=== PATIENT | male | born 1945 | race Caucasian/White ===

== ENCOUNTER 2016-10-09 11:14 | Day surgery (SDC) | payer OTHER ==
[~2016-10-09 11:14] MED LIST: Buffered Lidocaine 1% SYR 3ML* 3 ML/SYR SYRINGE INTRADERM ONE; Dexamethasone IV* 4 MG/ML 1 ML (4 MG) IV SLOW PU ONE; Famotidine IV* 10 MG/ML 2 ML (20 mg) IV ONE; Midazolam* 1 MG/ML 2 ML VIAL (2 MG) ONE; fentaNYL* 50 MCG/ML 2 ML VIAL (100 MCG VIAL) ONE
[2016-10-09] MEDS ORDERED: ceFAZolin 1 GM in Dextrose (*) 1 GM/50 ML BAG IVPB ONE (11:36)
[2016-10-09] MEDS ORDERED: Famotidine IV* 10 MG/ML 2 ML (20 mg) ONE (11:36)
[2016-10-09] MEDS ORDERED: ceFAZolin 2 GM PREMIX(*) 2 GM/50 ML BAG IVPB ONE (11:36)
[2016-10-09] MEDS ORDERED: Heparin VIAL(*) 5000 UNITS/ML VIAL (FIVE THOUSAND) ONE (11:36)
[2016-10-09] MEDS ORDERED: Dexamethasone IV* 4 MG/ML 1 ML (4 MG) ONE (11:36)
[2016-10-09] MEDS ORDERED: Buffered Lidocaine 1% SYRIN* 5 ML/SYR SYRINGE ONE (11:38)
[2016-10-09] MEDS ORDERED: Lidocaine 1% INJ* 10 MG/ML 30 ML SDV ONE (11:42)
[2016-10-09] MEDS ORDERED: Bupivacaine 0.5% SDV PF* 30 ML VIAL ONE (11:42)
[2016-10-09] MEDS ORDERED: Ondansetron INJ* 2 MG/ML VIAL ONE (12:08)
[2016-10-09] MEDS ORDERED: Propofol* 10 MG/ML 20 ML BTL IV PUSH ONE (12:08)
[2016-10-09] MEDS ORDERED: Ketorolac INJ* 30 MG/ML 1 ML VIAL ONE (12:08)
[2016-10-09] MEDS ORDERED: Bupivacaine 0.5% W/EPI SDV* 30 ML VIAL ONE (12:11)
[2016-10-09] MEDS ORDERED: DiMENhydriNATE IV* 50 MG/ML VIAL IV PUSH PRN (12:49)
--- NOTE | 2016-10-09 13:31 | PN ---
Progress Note - Progress Note Note: Brief Operative Note: Pre and Postop Dx: umbilical hernia Procedure: open repair umb hernia w/ mesh Anesthesia: Gen (LMA) Surgeon: Ingris Asst: JILLIAN Floyd EBL: < 50 ml Fluids: 400 ml RL Drains: none Findings: dictated
[2016-10-09] MEDS ORDERED: HYDROcodone/ACETAMIN 5-325 MG* 1 TAB PO PRN (13:32)
[2016-10-09] MEDS ORDERED: HYDROcodone/ACETAMIN 5-325 MG* 1 TAB ONE (14:02)
[2016-10-09] MEDS ORDERED: fentaNYL* 50 MCG/ML 2 ML VIAL (100 MCG VIAL) ONE (14:02)
[2016-10-09] MEDS: fentaNYL* 50 MCG/ML 2 ML VIAL (100 MCG VIAL) IV PRN ×2 (14:05→14:14)
[2016-10-09 14:14] VITALS: BP 156/82
[2016-10-09] MEDS ORDERED: Albuterol 2.5 MG/3 ML NEB.SOL* (0.083%) ONE (15:02)
--- NOTE | 2016-10-10 07:03 | OP ---
DATE OF OPERATION: 10/09/16 - [facility] DATE OF : 41 SURGEON: Praveen Amado MD MOVIE SHOT CAMERA OPERATOR: JILLIAN Lewis ANESTHESIOLOGIST: Dr. hPillips. ANESTHESIA: General anesthetic, local infiltration. PRE-OP DIAGNOSIS: Umbilical hernia. POST-OP DIAGNOSIS: Umbilical hernia. OPERATIVE PROCEDURE: Open repair of umbilical hernia with mesh. DESCRIPTION OF PROCEDURE: The patient was supine on the operating table. After adequate general anesthetic, compression stockings, Jaswinder Hugger warmer, and intravenous antibiotics; the abdomen was prepped with antiseptic and draped in a sterile fashion. Local infiltrative anesthesia was administered. A curvilinear incision was created at the inferior umbilical fold. There was some ulcerated skin down there. This was just excised and discarded and the hernia had just omentum and preperitoneal fat. It was dissected free and reduced and the preperitoneal plane was developed and a 6 cm underlay patch was utilized. The fascial defect was maybe 2.5 cm. This was sewn up underneath with eight sutures circumferentially with 0 Polysorb. The fascia was then closed over the top with 0 Polysorb, and umbilical skin tacked back down with 3- 0 Polysorb, which was also used for the adipose, and the skin closed with 5-0 Polysorb followed by Steri-Strips. He was brought to Recovery in good condition. No complications. No drains. No pathologic specimens. Sponge and instrument counts correct. Estimated blood loss less than 20 mL. CC: Dennys Granado MD * [id number] #: [id number] MTDD
== END 2016-10-09 15:45 | disposition home or self-care (01) ==
LOC: OR 11:14
PROVIDERS: ATTEND Surgery
DX: K42.9 Umbilical hernia without obstruction or gangrene (principal); Z68.35 Body mass index [BMI] 35.0-35.9, adult; I10 Essential (primary) hypertension; C61 Malignant neoplasm of prostate; C79.51 Secondary malignant neoplasm of bone
CPT/HCPCS: C1781; J0690; J1100; J1644; J1885; J2001; J2250; J2405; J2704; J3010

== ENCOUNTER 2019-01-13 08:25 | Inpatient (IN) | payer OTHER ==
--- NOTE | 2019-01-13 08:57 | ED ---
Skin Complaint - HPI Summary HPI Summary: The patient is a 73 y/o M presenting to [facility] with a chief complaint of gradual worsening of a sore throat and rash on the extremities starting three days ago. He reports that his symptoms started with a sore throat, and then he developed a pruritic and erythematous rash on the upper and lower extremities that has worsened in the last day particularly at the palms and knees. He additionally c/ o increased edema and blistering in the bilateral feet and decreased appetite over the last few days as well. He notes that he usually has edema in the feet due to a lack of mobility, but the swelling has worsened recently. He is not currently in pain. 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 He is unsure of the exposure. PMHx: HLD, HTN, GERD, jaundice, prostate cancer, hepatitis. Nonsmoker, no EtOH, no substance use. - History of Current Complaint Chief Complaint: EDAllergicReaction Time Seen by Provider: 01/13/19 08:34 Stated Complaint: GENERAL ILLNESS PER EMS Hx Obtained From: Patient Onset/Duration: Started Days Ago - three, Still Present, Worse Since - last day Skin Exposure Onset/Duration: Days Ago Timing: Lasting Days Onset Severity: Mild Current Severity: Moderate Pain Intensity: 0 Pain Scale Used: 0-10 Numeric Skin Location: Arm - bilateral worst at palms extending upwards, Leg - bilateral knees Character: Redness Aggravating Symptom(s): Other: - itching Alleviating Symptom(s): Treatment [employer]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: - none Associated Signs & Symptoms: Rash - diffuse - Allergy/Home Medications Allergies/Adverse Reactions: Allergies Allergy/AdvReac Type Severity Reaction Status Date / Time GRAPE JUICE Allergy Severe Swelling Uncoded 01/13/19 08:39 Home Medications: Home Medications Cholecalciferol TAB* [Vitamin D TAB*] 2,000 units PO DAILY 01/13/19 [History Confirmed 01/13/19] Furosemide 1 - 2 tab PO DAILY 01/13/19 [History Confirmed 01/13/19] Lansoprazole [Prevacid] 30 mg PO BEDTIME 01/13/19 [History Confirmed 01/13/19] Metoprolol Succinate 100 mg PO DAILY 01/13/19 [History Confirmed 01/13/19] PMH/Surg Hx/FS Hx/Imm Hx Endocrine/Hematology History: Denies: Hx Diabetes, Hx Systemic Lupus Erythematosus Cardiovascular History: Reports: Hx Hypercholesterolemia, Hx Hypertension Denies: Hx Congestive Heart Failure, Hx Pacemaker/ICD Respiratory History: Reports: Hx Pneumonia, Other Respiratory Problems/ Disorders - pneumonia, collapsed lung as a child GI History: Reports: Hx Gastroesophageal Reflux Disease - on prevacid, Hx Hiatal Hernia, Hx Jaundice - from hepatitis at approx 16 years old, Other GI Disorders - CHRONIC CONSTIPATION History: Reports: Other Problems/Disorders - 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 Denies: Hx Dialysis, Hx Renal Disease Musculoskeletal History: Reports: Hx Arthritis, Other Musculoskeletal History - CANCER LEFT HIP; METS FROM PROSTATE Denies: Hx Rheumatoid Arthritis Sensory History: Reports: Hx Contacts or Glasses - GLASSES Denies: Hx Hearing Aid Opthamlomology History: Reports: Hx Contacts or Glasses - GLASSES Psychiatric History: Denies: Hx Panic Disorder - Cancer History Cancer Type, Location and Year: malignant neoplasm of the prostste Hx Chemotherapy: Yes - Surgical History Surgery Procedure, Year, and Place: CHOLECYSTECTOMY 2009 [facility]. CATARACT RIGHT EYE 2011 [facility]. cataract left eye 2015 [facility] Hx Anesthesia Reactions: No Infectious Disease History: No Infectious Disease History: Reports: Hx Hepatitis - infectious in high school - none now Denies: Traveled Outside the [place] in Last 30 Days - Family History Known Family History: Negative: Cardiac Disease, Hypertension, Diabetes - Social History Alcohol Use: None Hx Substance Use: No Substance Use Type: Reports: None Hx Tobacco Use: No Smoking Status (MU): Never Smoked Tobacco Review of Systems Positive: Sore Throat Positive: Other - decreased appetite Positive: Edema - in the bilateral feet Positive: Rash - diffuse covering upper extremities at palms up the arms and on the bilateral knees, Other - blistering on the bilteral feet All Other Systems Reviewed And Are Negative: Yes Physical Exam - Summary Physical Exam Summary: Appearance: The patient is well-nourished in no acute distress and in no acute pain. Skin: Erythematous blanching rash sparsely on the upper extremities and more so on the palms and confluent on the feet with blisters. Otherwise the skin is warm and dry, and skin color reflects adequate perfusion. HEENT: The head is normocephalic and atraumatic. The pupils are equal and reactive. The conjunctivae are clear and without drainage. Nares are patent and without drainage. Mouth reveals moist mucous membranes, and the throat is without erythema and exudate. The external ears are intact. The ear canals are patent and without drainage. The tympanic membranes are intact. Neck: The neck is supple with full range of motion and non-tender. There are no carotid bruits. There is no neck vein distension. Respiratory: Chest is non-tender. Lungs are clear to auscultation and breath sounds are symmetrical and equal. Cardiovascular: Heart is regular rate and rhythm. There is no murmur or rub auscultated. There is no peripheral edema and pulses are symmetrical and equal. Abdomen: The abdomen is soft and non-tender. There are normal bowel sounds heard in all four quadrants and there is no organomegaly palpated. Musculoskeletal: There is no back tenderness noted. Extremities are non-tender with full range of motion. There is good capillary refill. There is no peripheral edema or calf tenderness elicited. Neurological: Patient is alert and oriented to person, place and time. The patient has symmetrical motor strength in all four extremities. Cranial nerves are grossly intact. Deep tendon reflexes are symmetrical and equal in all four extremities. Psychiatric: The patient has an appropriate affect and does not exhibit any anxiety or depression. Triage Information Reviewed: Yes Vital Signs On Initial Exam: Initial Vitals Temp Pulse Resp BP Pulse Ox 98.2 F 82 16 184/86 96 01/13/19 08:31 01/13/19 08:31 01/13/19 08:31 01/13/19 08:31 01/13/19 08:31 Vital Signs Reviewed: Yes Diagnostics - Vital Signs Vital Signs Temp Pulse Resp BP Pulse Ox 01/13/19 08:35 81 15 95 01/13/19 08:31 98.2 F 82 16 184/86 96 - Laboratory Result Diagrams: 01/13/19 09:13 01/13/19 09:13 Lab Statement: Any lab studies that have been ordered have been reviewed, and results considered in the medical decision making process. Re-Evaluation - Re-Evaluation First Eval Re-Evaluation Time: 10:15 Comment: We discussed findings as well as plan for admission. Course/Dx - Course Course Of Treatment: Mr. Mcgee presented with a maculopapular rash sparsely on the dorsum of his extremities and confluent on the volar aspect of his hands and feet. He also complained of a sore throat and was found to have some lesions on his hard and soft palate. His mucous membranes are quite dry. He had blistering areas on the soles of both feet. He is afebrile and his vitals are stable. His labs were unremarkable. I'm not sure that he is safe for discharge. My best guess is that the rash is erythema multiforme. This could be [place] spotted fever also. He is not on any new medications. I spoke with Dr. Figueroa who requested a consult with Dr. Romero. Dr. Romero agreed with the differential. The hospitalist came and evaluated the patient for admission. - Diagnoses Provider Diagnoses: Erythema multiforme - Physician Notifications Discussed Care Of Patient With: Petra Figueroa - hospitalist Time Discussed With Above Provider: 10:28 Instructed by Provider To: Other - Dr. Figueroa would like for a consult with Dr. Romero from dermatology. I spoke with Dr. Romero concerning the patient's case at 1116. He reports that the rash could be secondary to autoimmune disease. At 1200, I consulted Dr. Figueroa again, and hospitalist services will come see the patient in the ED. They will consult Dr. Torres, but the patient is accepted for admission. Discharge ED - Sign-Out/Discharge Documenting (check all that apply): Patient Departure - Patient is accepted for admission. Patient Received Moderate/Deep Sedation with Procedure: No - Discharge Plan Condition: Stable Disposition: ADMITTED TO [facility] - Billing Disposition and Condition Condition: STABLE Disposition: Admitted to [facility] - Attestation Statements Document Initiated by Briseida: Yes Documenting Scribe: Adilene Mcgill Provider For Whom Briseida is Documenting (Include Credential): Dr. Andriy Pal MD Scribe Attestation: I, Adilene Mcgill, scribed for Dr. Andriy Pal MD on 01/13/19 at 1458. Scribe Documentation Reviewed: Yes Provider Attestation: The documentation as recorded by the Adilene boland accurately reflects the service I personally performed and the decisions made by me, Dr. Andriy Pal MD Status of Scribe Document: Viewed
[2019-01-13] MEDS ORDERED: NS 0.9% 1000 ML** 1,000 ML IV ONE (09:05)
[2019-01-13 09:28] LABS: ABS Eosinophils 0.2 10^3/ul (0-0.6); ABS Lymphocytes 0.8 10^3/ul (1.0-4.8); ABS Monocytes 0.9 10^3/ul (0-0.8); ABS Neutrophils 5.6 10^3/ul (1.5-7.7); Eosinophil % 2.8 %; Hematocrit 34 % (42-52); Lymphocyte % 10.8 %; Mean Corpuscular HGB Conc 35 g/dL (31-36); Mean Corpuscular Hemoglobin 31 pg (27-31); Mean Corpuscular Volume 90 fL (80-94); Mean Platelet Volume 9.1 fL (7.4-10.4); Platelet Count 234 10^3/uL (150-450); Red Blood Count 3.82 10^6 /uL (4.18-5.48); Red Cell Distribution Width 14 % (10-15); White Blood Count 7.6 10^3/uL (3.5-10.8)
[2019-01-13] MEDS ORDERED: diPHENhydraMINE IV* 50 MG/ML 1 ml VIAL (BENADRYL) IV ONE (09:34)
[2019-01-13 09:46] LABS: INR 1.27 (0.82-1.09)
[2019-01-13 09:53] LABS: Albumin 3.6 g/dL (3.2-5.2); Albumin/Globulin Ratio 1.1 (1-3); BUN/Creatinine Ratio 13.5 (8-20); C Reactive Protein 81.14 mg/L (<8.01); Calcium 8.7 mg/dL (8.6-10.3); EGFR African American 124.8 (>60); EGFR Non-African American 103.1 (>60); Globulin 3.3 g/dL (2-4); Potassium 2.8 mmol/L (3.5-5.0); Total Protein 6.9 g/dL (6.4-8.9)
[2019-01-13] MEDS ORDERED: Potassium Chlor TAB* 20 MEQ TAB.ER PO ONE (10:26)
[2019-01-13] MEDS ORDERED: oxyCODONE/Acetamin 5/325 MG* TAB PO ONE (12:43)
[2019-01-13] MEDS ORDERED: hydrALAZINE IV* 20 MG/ML VIAL IV SLOW PU PRN (13:23)
[2019-01-13 14:31] LABS: Erythrocyte Sed Rate 77 mm/Hr (0-19)
--- NOTE | 2019-01-13 14:31 | HP ---
HISTORY AND PHYSICAL: DATE OF ADMISSION: 01/13/19 PRIMARY CARE PROVIDER: Unknown. ATTENDING PHYSICIAN: Dr. Figueroa * (dictated by Gerson Catherine, UILSES). CHIEF COMPLAINT: 1. Rash. 2. Sore throat. HISTORY OF PRESENT ILLNESS: Mr. Mcgee is a 73-year-old male with a past medical history significant for prostate cancer with metastasis, hyperlipidemia , hypertension, GERD, jaundice, history of hep C; who presented to the emergency department today with complaints of rash and sore throat. The patient reports that approximately Thursday or Thursday, he started to have a mild sore throat. He reports on Thursday, he started to notice blisters on the bottom of his feet and to his hands. He reports since that time these areas have become more swollen, more painful, and rash has spread. He denies any fevers, chest pain, cough, hemoptysis, nausea, vomiting, diarrhea, abdominal pain, dysuria, arthralgias or myalgias, recent travel, recent sick contact, recent tick bites. He reports that he has had a sore throat which has caused him to decrease his appetite as it hurts to swallow. While in the emergency department, the patient had labs which revealed very slight anemia, hypokalemia, and an elevated CRP at 81.14. The patient is in a significant amount of pain as he reports he is unable to walk given the pain in his feet secondary to the blisters. Given these findings and the patient's complaints, Dr. Pal did contact Dermatology and the hospitalist team to admit the patient. The patient will be admitted to the medical floor for observation. PAST MEDICAL HISTORY: Prostate CA with metastasis to colon, hyperlipidemia, hypertension, GERD, jaundice, history of hepatitis C. PAST SURGICAL HISTORY: Cholecystectomy, cataracts. HOME MEDICATIONS: 1. Multivitamin. 2. Prevacid 30 mg p.o. at bedtime. 3. Vitamin D 2000 units p.o. daily. 4. Aspirin 81 mg p.o. daily. 5. TriCor 48 mg p.o. q.p.m. 6. Metoprolol succinate 100 mg p.o. daily. 7. Furosemide 20 mg tabs, 1 to 2 tabs p.o. daily. ALLERGIES: GRAPE JUICE. FAMILY HISTORY: Father due to heart failure. Mother is due to unknown cause, but has significant history of arthritis. There is no family history of diabetes or cancer. There is questionable history of CAD. SOCIAL HISTORY: The patient does not smoke, does not drink, does not use drugs. The patient lives with his partner. The patient's surrogate decision maker will be any of his children. He reports please do not contact my sister. REVIEW OF SYSTEMS: A 14-point review of systems was performed and all pertinent positive and negative findings are in the HPI. All others are negative. PHYSICAL EXAMINATION GENERAL: Mr. Mcgee is a well-developed, well-nourished, slightly obese male, sitting in the bed. Appears to be in no acute distress. Appears stated age. VITAL SIGNS: Temp 98.2, HR 90, RR 20, O2 saturation 95% on room air, BP 160/90. HEENT: PERRLA. EOMs intact. Sclerae without icterus. The patient's mucous membranes appear dry. The patient has yellowish darkened lesions to his soft palate, cheeks, and lips. There is slight erythema, but no exudate. Posterior pharynx was clear. NECK: Full range of motion. No lymphadenopathy. RESPIRATORY: Symmetrical chest expansion. No accessory muscle use. Lungs are clear to auscultation. No rhonchi, wheezes, or rales. CARDIOVASCULAR: Regular rate and rhythm. S1, S2 present. No murmurs, rubs, or gallops. ABDOMEN: Soft, nontender to palpation. Bowel sounds normoactive throughout. EXTREMITIES: Warm and smooth bilaterally. There is trace edema to bilateral lower extremities. No clubbing or cyanosis. Pedal pulses 2+ bilaterally. MUSCULOSKELETAL: Full range of motion. No pain or deformities. NEUROLOGIC: Awake, alert, and oriented. Strength is 5/5 in upper and lower extremities. SKIN: The patient has crust-like darkened lesions to his soft palate and lips. The patient has erythema to his oral mucosa and posterior pharynx. The patient has reddened papular rash to bilateral palms of his hand extending up his arms. The patient has redness and large blisters to bilateral feet on dorsal and plantar aspects. DIAGNOSTIC STUDIES/LAB DATA: WBC 6.7, hemoglobin 12.0, hematocrit 34, platelets 234. Sodium 137, potassium 2.8, chloride 101, carbon dioxide 26, BUN 10, creatinine 0.74, glucose 118. CRP 81.14. ASSESSMENT AND PLAN: Mr. Mcgee is a 73-year-old male with a past medical history significant for prostate cancer with metastasis, hyperlipidemia, hypertension, gastroesophageal reflux disease, jaundice, history of hepatitis, who presented to the emergency department today with a rash. The patient will be admitted to OB. 1. Rash: Given his rash and pain, he will be admitted observation for further evaluation and treatment. Given this started with a sore throat, I have ordered a throat culture. I have also ordered a culture of the open blisters on his feet. I have placed a consult for Dr. Bhupinder Torres from Infectious Disease to see the patient. I have also placed my own call to Dermatology for consultation. I have added an ESR on to his ED labs. In addition, we have ordered Lyme screen and tick-borne panel. The patient reports he has no new medications; therefore, a drug reaction is less likely. Given the pain, I will provide p.o. pain medications. 2. Sore throat: Once again, I have ordered a throat culture. I will order a regular diet as the patient tolerates. 3. Systemic inflammatory response syndrome criteria: The patient does meet systemic inflammatory response syndrome criteria with an elevated heart rate greater than 90 and respirations greater than 20. Therefore, blood cultures were ordered and have been received pending results. Urinalysis has been ordered with a reflux culture. The patient received IV fluids while in the emergency department. I will not continue IV fluids at this moment, but I will monitor the patient closely and provide gentle fluid hydration if needed. 4. Prostate cancer with metastasis: The patient reports his last treatment was greater than 10 years ago. The patient follows up with Dr. Granado. 5. Hyperlipidemia: We will continue the patient's TriCor. 6. Hypertension: The patient is mildly hypertensive here in the emergency department. I will continue the patient's metoprolol and I will add hydralazine as needed. 7. Gastroesophageal reflux disease: I will continue the patient's Prevacid. 8. History of jaundice: The patient is not currently jaundiced. We will monitor. 9. History of hepatitis: The patient reports he had infectious hepatitis as a teenager. 10. Hypokalemia: Patient noted to be hypokalemic in ED and replacement ordered. Recheck electrolytes tomorrow. 11. FEN: The patient will be provided with a regular diet, consistency may change given his sore throat. 12. Code status: The patient is a full code. 13. DVT prophylaxis: Based on the DVT Risk Assessment, the patient is high risk. I will order subcu heparin q.8 hours. TIME SPENT: Approximately 55 minutes was spent on this admission, greater than half the time was spent [id number] with the patient obtaining my history, performing physical exam, and reviewing my plan of care. This case has been reviewed with my attending, Dr. Figueroa, who is in agreement with my plan of care. Reviewed by GERSON CATHERINE NP 01/23/19 @ 1848 [id number] #: [id number]
[2019-01-13] MEDS: Heparin VIAL(*) 5000 UNITS/ML VIAL (FIVE THOUSAND) SUBCUT SCH ×2 (15:26→21:28)
--- NOTE | 2019-01-13 16:47 | CONS ---
CONSULTATION REPORT: DATE OF CONSULT: 01/13/19 PRIMARY CARE PROVIDER: Dr. Dennys Granado. PROVIDER REQUESTING CONSULTATION: Iraida Khan NP CONSULTING SERVICE: Infectious Disease. PROVIDER: Andrea Olivas NP ATTENDING PROVIDER: Dr. Bhupinder Torres.* (DICTATED BY ANDREA OLIVAS NP) REASON FOR CONSULT: Rash involving soles of feet, palms of hands, arms with oral lesions. IMPRESSION: 1. Rash. The patient is noted to have a rash to the palms of his hands, sole of his feet in addition to his right groin with a sore throat and lesions in his mouth. He has a tick-borne panel and Lyme screen pending in addition to a syphilis screening pending at this time. He denies any new exposure such as foods, detergents, lotions, or other products. He denies any new medications. He is afebrile with no leukocytosis. Differential diagnosis includes secondary syphilis, Wallace-Demetrius syndrome, enterovirus, reaction to medication, viral illness, and sweet syndrome. 2. Sore throat. I suspect secondary to the process in #1. Throat culture has been ordered. 3. History of prostate cancer with colon metastasis. He received radiation therapy over 10 years ago. He follows with Dr. Granado. 4. Obesity, BMI is 35. RECOMMENDATIONS/PLAN: Recommend obtaining a punch biopsy to evaluate for sweat syndrome. Provide supportive care. We will continue to follow along, further recommendations will be made based on the clinic course and results of pending labs and punch biopsy. HISTORY OF PRESENT ILLNESS: Mr. Mcgee is a 73-year-old male with past medical history significant for prostate cancer, status post radiation, with metastasis to the colon; hypertension; hyperlipidemia; GERD; and history of hepatitis, who states that he was in his usual state of health on Thursday. On Thursday, he noticed a slight sore throat, and by Thursday, his sore throat was worse. He states that on Thursday, he started to notice blisters on the bottoms of his feet and rash to his arms and hands. He denies any fevers, chills. He reports a chronic left hip pain after his radiation therapy. Denies nausea, vomiting, diarrhea, urinary symptoms such as urgency, frequency, or dysuria. He denies any recent travel. He reports a poor appetite, but states this is not due to the lesions in his mouth. He often has edema in his left leg post radiation, but states that this has been increased over the last few days. He also reports a slight rash to his right groin and upper thigh that he has attributed to a heat rash that has been present for few weeks. The rash on his hands and legs is itchy. His daughter from [facility] has recently been in town and he reports that she had some itchy skin issues, he is unsure of the details, but states she has since gone home. He does not have any pets. He denies spending any time outside. He states he is only outside to go about 50 feet to his car. He has not removed any ticks. He denies any new medications or supplements. He does not believe that there are any new soaps or detergents in the house, but he is unsure as his significant other does the purchasing of these items. He states that she does not currently have any skin issues. He denies any contacts with individuals with similar symptoms. He states that due to the blisters on the bottom of his feet, it became too painful to ambulate. Due to his symptoms, he presented to the emergency room for further evaluation. While in the emergency room, he had labs revealing anemia, hypokalemia, and an elevated CRP of 81.14. The patient was referred to the hospitalist service for admission. While in the hospital, the patient was noted to have a low-grade fever of 100.3. PAST MEDICAL HISTORY: 1. Prostate cancer with metastasis to the colon, status post radiation. 2. Hyperlipidemia. 3. Hypertension. 4. GERD. 5. History of hepatitis. PAST SURGICAL HISTORY: 1. Status post cholecystectomy. 2. Status post cataract extraction. MEDICATIONS: Home medications include: 1. Multivitamin 1 tablet by mouth daily. 2. Prevacid 30 mg by mouth at bedtime. 3. Vitamin D 2000 units by mouth daily. 4. Aspirin 81 mg by mouth daily. 5. TriCor 48 mg by mouth every evening. 6. Metoprolol succinate 100 mg by mouth daily. 7. Furosemide 20 to 40 mg by mouth daily. ALLERGIES: GRAPE JUICE. FAMILY HISTORY: He denies any family history of recurrent or resistant infections. His mother passed from an unknown cause. His father passed from complications related to heart failure. Denies any family history of diabetes or cancer. SOCIAL HISTORY: He denies tobacco, alcohol, or recreational drug use. REVIEW OF SYSTEMS: I performed a 10-point review of systems. All the pertinent positives and negatives are mentioned in the history of present illness. The remaining review of systems are negative. PHYSICAL EXAM: Vital Signs: Temperature 97.8, heart rate 86, respiratory rate 20, O2 sat 93% on room air, blood pressure 171/74. General Appearance: No acute distress, lying in bed, appears stated age. Head: Normocephalic, atraumatic. EENT: Pupils are equal and reactive to light. Extraocular movements are intact. There is no subconjunctival hemorrhage. Dry mucous membranes. There are white to yellowish lesions to his soft palate, bilateral buccal mucosa, and the sides of his tongue. His lips have yellowish darkened lesions and are dry. His lips also with slight erythema, no exudate. Posterior pharynx with slight erythema and few light colored erythematous lesions noted. Neck: Supple. No lymphadenopathy. Neurological: Alert and oriented x4. Cranial nerves II through XII are grossly intact. Cardiovascular : Regular rate and rhythm. S1, S2 present. No murmurs, rubs, or gallops heard. Respiratory: No accessory muscle use. The lungs are clear to auscultation bilaterally. Abdomen: Bowel sounds present. Abdomen is large, soft, nontender, nondistended. Extremities: There is mild bilateral lower extremity edema with the left greater than the right, especially on the left foot. There is no clubbing or cyanosis noted. 2+ DP pulses bilaterally. Musculoskeletal: No clubbing or cyanosis noted. Exhibits good strength in all extremities. Psychological: He is calm and cooperative. Skin: The patient has as described above crust-like darkened lesions to his lips. He has dark erythematous papular rash to bilateral palms of hands extending to the back of his hands and up his arms. He also has bilateral lower extremity chronic skin changes consistent with venous insufficiency. There is erythema and large blisters to the soles of the plantar aspects of bilateral feet. He has a light flat light purplish discolored rash into his right groin. No splinter hemorrhages. DIAGNOSTIC STUDIES/LAB DATA: Sodium 137, potassium 2.8, chloride 101, CO2 of 26 , BUN 10, creatinine 0.74, glucose 118. White blood cell count 7.6, hemoglobin 12.0, hematocrit 34, platelet count 234. CRP 81.14. Please see impression and recommendations outlined above. Recommendations have been discussed with Iraida Khan NP. Thank you for asking us to see Mr. Mcgee in consultation. The case has been reviewed with the attending, Dr. Bhupinder Torres, who agrees with the plan of care. Reviewed by JES LIVINGSTON 01/14/19 0849 [id number]/[facility] #: [id number] MTDD
[2019-01-13] MEDS ORDERED: FENOFIBRATE 48 MG PO SCH (18:00)
[2019-01-13] MEDS ORDERED: LANSOPRAZOLE 15 MG PO SCH (21:00)
[2019-01-13] MEDS: oxyCODONE/Acetamin 5/325 MG* TAB PO PRN (21:24)
[2019-01-13] MEDS: Pantoprazole TAB * 40 MG TAB PO SCH (21:28)
[2019-01-13] MEDS ORDERED: Metoprolol Succinate XL TAB* 100 MG PO ONE (21:45)
[2019-01-13] MEDS ORDERED: Metoprolol Tartrate IV* 1 MG/ML 5 ML VIAL IV PRN (22:07)
[2019-01-13 22:19] LABS: BUN/Creatinine Ratio 11.8 (8-20); Blood Urea Nitrogen 8 mg/dL (6-24); CO2 Carbon Dioxide 24 mmol/L (22-32); Calcium 8.5 mg/dL (8.6-10.3); Chloride 101 mmol/L (101-111); EGFR African American 137.6 (>60); EGFR Non-African American 113.7 (>60); Glucose 106 mg/dL (70-100); Magnesium 1.7 mg/dL (1.9-2.7); Sodium 136 mmol/L (135-145)
[2019-01-13 22:21] LABS: Anion Gap 11 mmol/L (2-11); Potassium 2.5 mmol/L (3.5-5.0)
[2019-01-13 22:39] LABS: Troponin I 0.04 ng/mL (<0.04)
[2019-01-13] MEDS ORDERED: Magnesium Sulfate 2 GM IV* 2 GM/50 ML BAG IVPB ONE (23:42)
[2019-01-14] MEDS: KCL 20 MEQ/100 ML IVPREMIX* 20 MEQ/100 ML BAG IV SCH ×3 (00:56→05:53)
[2019-01-14] MEDS: Enoxaparin(*) 150 MG/ML 1 ML SYRINGE SUBCUT SCH ×2 (01:00→13:27)
[2019-01-14] MEDS: oxyCODONE/Acetamin 5/325 MG* TAB PO PRN ×5 (01:31→23:54)
[2019-01-14 01:58] LABS: Troponin I 0.04 ng/mL (<0.04)
[2019-01-14 05:02] LABS: Troponin I 0.04 ng/mL (<0.04)
--- NOTE | 2019-01-14 08:15 | PN ---
Subjective Date of Service: 01/14/19 Interval History: Appears patient went into afib with RVR overnight in setting of profound hypokalemia. No documentation, but appears pt received repletion and enoxaparin. Unclear if patient returned to NSR without intervention. Will order morning labs now to f/u electrolyte status and will DC furosemide. Pt still with significant pain from blisters on soles of feet - not walking yet. Also reporting sore throat. Denies other complaints, including CP, SOB, orthopnea. Objective Active Medications: Acetaminophen (Tylenol Tab*) 650 mg PO Q4H PRN PRN Reason: MILD PAIN or TEMP > 100.4 Apixaban (Eliquis*) 5 mg PO BID [facility] Last Admin: 01/14/19 20:02 Dose: 5 mg Aspirin (Aspirin 81 Mg Chew Tab*) 81 mg PO DAILY [facility] Last Admin: 01/14/19 09:09 Dose: 81 mg Cholecalciferol (Vitamin D Tab*) 2,000 units PO DAILY [facility] Last Admin: 01/14/19 09:09 Dose: 2,000 units Fenofibrate (Tricor) 54 mg PO QPM [facility] Last Admin: 01/14/19 18:41 Dose: 54 mg Metoprolol Succinate (Toprol Xl Tab*) 100 mg PO DAILY [facility] Last Admin: 01/14/19 09:09 Dose: 100 mg Metoprolol Tartrate (Lopressor Iv*) 5 mg IV Q6H PRN PRN Reason: TACHYCARDIA Multivitamins/Minerals (Theragran/Minerals Tab*) 1 tab PO DAILY [facility] Last Admin: 01/14/19 09:21 Dose: Not Given Oxycodone/Acetaminophen (Percocet 5/325 Tab*) 1 tab PO Q4H PRN PRN Reason: PAIN - MODERATE Last Admin: 01/14/19 18:48 Dose: 1 tab Pantoprazole Sodium (Protonix Tab*) 40 mg PO BEDTIME [facility] Last Admin: 01/14/19 20:51 Dose: 40 mg Vital Signs - 8 hr 01/14/19 01/14/19 01/14/19 01:31 03:30 03:50 Temperature 97.5 F Pulse Rate 94 Respiratory 18 18 18 Rate Blood Pressure 147/66 (mmHg) O2 Sat by Pulse 93 Oximetry Oxygen Devices in Use Now: None Appearance: well appearing elderly man in NAD, alert and interactive Eyes: No Scleral Icterus Ears/Nose/Mouth/Throat: - - hyperpigmented macules scattered over oral mucosa and lips, crusting over lips, OP erythematous Neck: Trachea Midline Respiratory: Clear to Auscultation Cardiovascular: - - irreg irreg, no mgr Abdominal: NL Sounds; No Tenderness; No Distention, No Hepatosplenomegaly Lymphatic: No Cervical Adenopathy Extremities: No Edema Skin: - - erythematous maculopapular tender rash over palms of hands and extending to doral hand and proximally up forearms, large blisters without pigmentation [employer] soles of feet Result Diagrams: 01/13/19 09:13 01/14/19 08:47 Microbiology and Other Data: Microbiology 01/13/19 12:57 Gram Stain - Final Toe - Right Big Assess/Plan/Problems-Billing Assessment: 73M with metastatic prostate cancer, HTN, GERD, HCV (unknown if treated), who presents with sore throat and diffuse rash. Found with severe hypokalemia. - Patient Problems (1) Rash Comment: Differential broad at this point, including immune mediated/allergy, infectious, or paraneoplastic. - pending eval by Dr. Torres - derm contacted and unable to come to hospital - consult surgery for punch biopsy of lesions (2) Atrial fibrillation Comment: CHADSVASc 3. - switch to apixaban - cont rate control (3) Diastolic heart failure Comment: Seen on echo. - furosemide held given hypokalemia - monitor volume status, restart furosemide with K when able (4) DVT prophylaxis Current Visit: Yes Status: Acute Code(s): Z29.9 - ENCOUNTER FOR PROPHYLACTIC MEASURES, UNSPECIFIED SNOMED Code(s): 570055813 Comment: on therapeutic AC (5) Full code status Current Visit: Yes Status: Acute Code(s): Z78.9 - OTHER SPECIFIED HEALTH STATUS SNOMED Code(s): 670587425
[2019-01-14] MEDS ORDERED: FOLIC ACID PO SCH (09:00)
[2019-01-14] MEDS ORDERED: Metoprolol Succinate XL TAB* 100 MG PO SCH (09:00)
[2019-01-14] MEDS ORDERED: Cholecalciferol TAB* 1000 UNITS PO SCH (09:00)
[2019-01-14] MEDS ORDERED: MULTIVIT MINERALS PO SCH (09:00)
[2019-01-14] MEDS ORDERED: Furosemide TAB* 20 MG PO SCH (09:00)
[2019-01-14] MEDS: Aspirin 81 mg CHEW TAB* 81 MG TAB.CHEW PO SCH (09:09)
[2019-01-14] MEDS: Metoprolol Succinate XL TAB* 100 MG PO SCH (09:09)
[2019-01-14] MEDS: Multivitamins/Minerals TAB PO SCH ×2 (09:09→09:21)
[2019-01-14] MEDS: Cholecalciferol TAB* 1000 UNITS PO SCH (09:09)
[2019-01-14 09:16] LABS: BUN/Creatinine Ratio 14.3 (8-20); Calcium 8.6 mg/dL (8.6-10.3); EGFR Non-African American 109.9 (>60); Magnesium 2.3 mg/dL (1.9-2.7)
[2019-01-14] MEDS ORDERED: Perflutren Lipid Microsphere* 3 ML VIAL ONE (11:30)
--- NOTE | 2019-01-14 14:32 | ECHO ---
*[facility]* [place] [address] Fax #: [phone] Transthoracic Echocardiogram (Report amended [id number]) Patient: Luis Angel Mcgee : 1945 Study Date: 01/14/2019 Age: 73 Gender: M HR: 79 bpm Height: 73 in /185.4 cm BSA: 2.38 m^2 Weight: 253.5 lb /115.2 kg BMI: 33.5 kg/m^2 *[employer]: * Marisela Ly [facility] *Referring Physician: * Brayan Landaverde *Reading Physician: * Prashanth Kemp MD Indications: Abnormal EKG. History: A-fib with right ventricular,prior TIA,metastatic prostate cancer,GERD,obesity. Risk factors: Hypertension. Dyslipidemia. Conclusions Summary: - Impressions: The study is similar to the study of November 2009 except for the development of diastolic dysfunction. - Left ventricle: The cavity size is normal. Wall thickness is mildly increased. Systolic function is normal. The estimated ejection fraction is 55-60%. Features are consistent with a pseudonormal left ventricular filling pattern, with concomitant abnormal relaxation and increased filling pressure (grade 2 diastolic dysfunction). - Left atrium: The atrium is mildly dilated. - Mitral valve: There is mild to moderate regurgitation. - Tricuspid valve: There is mild regurgitation. Study data: Transthoracic echocardiogram. Procedure: Transthoracic echocardiography was performed. Image quality was fair. The study was technically limited due to body habitus. Intravenous Definity , 3 mlswas administered. Image enhancement administered by Complete 2D, spectral Doppler, and color flow Doppler. Patient status: Observation. Patient room number: 410-2. Comparison is made to the study of November 2009. Rhythm: Atrial fibrillation. Findings Left ventricle: The cavity size is normal. Wall thickness is mildly increased. Systolic function is normal. The estimated ejection fraction is 55-60%. Wall motion is normal; there are no regional wall motion abnormalities. Features are consistent with a pseudonormal left ventricular filling pattern, with concomitant abnormal relaxation and increased filling pressure (grade 2 diastolic dysfunction). Diastolic function abnormalities have appeared since the study of November 2009. Right ventricle: Not well visualized. The cavity size is normal. Wall thickness is normal. Systolic function is normal. Ventricular septum: Well visualized. Left atrium: Well visualized. The atrium is mildly dilated. Right atrium: Not well visualized. Atrial septum: Well visualized. Mitral valve: Well visualized. The leaflets are mildly thickened. No echocardiographic evidence for prolapse. There is no evidence of stenosis. There is mild to moderate regurgitation. Aortic valve: Well visualized. The valve is trileaflet. The leaflets are normal thickness. There is no evidence of stenosis. There is no significant regurgitation. Tricuspid valve: Not well visualized. The leaflets are normal thickness. There is mild regurgitation. Pulmonic valve: Well visualized. The leaflets are normal thickness. There is no evidence of stenosis. There is no significant regurgitation. Aorta: The aorta is well visualized and normal size. The aortic root appears normal. The aortic arch appears normal. Pericardium: There is no pericardial effusion. No evidence of pleural fluid accumulation. Pulmonary arteries: Systolic pressure can not be accurately estimated. Systemic veins: Not well visualized. Pulmonary veins: Visualization of the pulmonary venous anatomy is incomplete, but a significant abnormality is unlikely. Measurements Left ventricle Value Ref Right atrium Value Ref TREY, LAX (H) 6.0 cm 4.2 - Estimated RAP 8 mm Hg ---- 5.8 ESD, LAX (H) 4.2 cm 2.5 - Aortic valve Value Ref 4.0 Peak v, S 1.04 m/sec ---- FS, LAX 29 % 25 - 43 VTI, S 19.2 cm ---- PW, ED, LAX (H) 1.4 cm 0.6 - Mean grad, S 2.0 mm Hg ---- 1.0 Peak grad, S 4.0 mm Hg ---- FS 29 % 25 - 43 LVOT/AV, VTI ratio 0.95 ---- Mid-wall FS 14 % ------- PAYTON, VTI 2.99 cm^2 ---- PW, ED (H) 1.4 cm 0.6 - PAYTON, Vmax 2.53 cm^2 ---- 1.0 PW/ID, ED 0.23 ------- Mitral valve Value Ref E', lat ernesto, TDI (L) 9.8 cm/sec >=10.0 Peak E 1.21 m/sec ---- E/e', lat ernesto, TDI 12 ------- Peak A 0.86 m/sec ---- E', med ernesto, TDI (L) 5.8 cm/sec >=7.0 Decel time 208 ms ---- E/e', med ernesto, TDI 21 ------- Peak grad, D 5.9 mm Hg ---- E', avg, TDI 7.8 cm/sec ------- Peak E/A ratio 1.4 ---- E/e', avg, TDI (H) 16 <=14 Pulmonic valve Value Ref LVOT Value Ref Peak v, S 0.8 m/sec ---- Diam, S 2.00 cm ------- Peak grad, S 3.0 mm Hg ---- Area 3.1 cm^2 ------- Peak gordon, S 0.84 m/sec ------- Aortic root Value Ref VTI, S 18.3 cm ------- Root diam 2.9 cm <4.4 Mean grad, S 1 mm Hg ------- SV 57 ml ------- Ascending aorta Value Ref SV/bsa 24 ml/m^2 ------- AAo AP diam, S 2.9 cm ---- AAo AP diam/bsa, S 1.2 cm/m^2 ---- Ventricular septum Value Ref IVS, ED (H) 1.2 cm 0.6 - Aortic arch Value Ref 1.0 Arch diam 2.7 cm ---- Right ventricle Value Ref Decending aorta Value Ref TREY, LAX 3.0 cm ------- Rashmi peak gordon 0.55 m/sec ---- Left atrium Value Ref ML dim, A4C 4.5 cm ------- SI dim, A4C 6.5 cm ------- Vol/bsa, ES, 1-p 36 ml/m^2 12 - 37 A4C Vol/bsa, ES, A/L (H) 41 ml/m^2 16 - 34 Legend: (L) and (H) estrada values outside specified reference range. Amended Prashanth Kemp MD 01/14/2019 14:38
--- NOTE | 2019-01-14 14:43 | PN ---
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 This began with the soles of his feet, and eventually included his palms, forearms, and oropharynx. It was preceded by a fever and sore throat. Hx was reviewed and skin examined. 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 Specimens submitted (one each in formalin and Luke's solution). Wounds closed w/ single 5-0 nylon suture each. DSD placed. Patient tolerated well. Pathology pending. Sutures may be removed in ~ 1 week.
--- NOTE | 2019-01-14 15:50 | PRO ---
CC: Dr. Granado; Dr. Mccullough; Dr. Torres * DATE OF PROCEDURE: 01/14/19 - ROOM #ICU-08 ATTENDING SURGEON: Dr. Scar Jackson. PREPROCEDURE DIAGNOSIS: Papular and bullous rash. POSTPROCEDURE DIAGNOSIS: Papular and bullous rash. INDICATIONS: We were requested by the medical service and ID service to obtain punch biopsies of represented skin lesions of this 73-year-old male patient who presented with a papular and bullous rash involving initially the soles of his feet and eventually the palms of his hand as well as some extension from both the upper and lower extremities as well as his oropharynx. Current medications and allergies were reviewed. Procedure was explained to the patient and consent obtained. DESCRIPTION OF PROCEDURE: A time-out was performed. 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 The skin was prepped with Betadine and sterile drape was placed. 3 mm punch biopsies were taken from two home furnishings sales representative lesions of the left forearm after infiltration of 1% plain lidocaine. One of the specimens was submitted in formalin, the other in Luke solution. After hemostasis was obtained, each wound was closed with a single 5- 0 nylon suture. Dressing was placed. The patient tolerated the procedure well. There were no complications. Pathology is pending. The patient was instructed regarding wound care and suture removal in approximately 1 week. JILLIAN SHAW [id number]/[facility] #: [id number] [facility] CLINICPaula
[2019-01-14] MEDS ORDERED: KCL 20 MEQ/100 ML IVPREMIX* 20 MEQ/100 ML BAG IV ONE ×2 (18:54→22:00)
[2019-01-14] MEDS: Apixaban* 5 MG TAB PO SCH (20:02)
[2019-01-14] MEDS: Potassium Chlor TAB* 20 MEQ TAB.ER PO ONE ×2 (20:02→20:44)
[2019-01-14] MEDS: Pantoprazole TAB * 40 MG TAB PO SCH (20:51)
[2019-01-14] MEDS ORDERED: Potassium Chloride* LIQUID 20 MEQ/15 ML UDC PO ONE (22:10)
[2019-01-15 06:35] LABS: Hematocrit 31 % (42-52); Hemoglobin 10.9 g/dL (14.0-18.0); Mean Corpuscular HGB Conc 35 g/dL (31-36); Mean Corpuscular Hemoglobin 31 pg (27-31); Mean Corpuscular Volume 90 fL (80-94); Mean Platelet Volume 8.9 fL (7.4-10.4); Platelet Count 248 10^3/uL (150-450); Red Blood Count 3.49 10^6 /uL (4.18-5.48); Red Cell Distribution Width 14 % (10-15); White Blood Count 6.8 10^3/uL (3.5-10.8)
[2019-01-15 06:53] LABS: BUN/Creatinine Ratio 15.2 (8-20); Calcium 8.1 mg/dL (8.6-10.3); EGFR African American 142.4 (>60); EGFR Non-African American 117.7 (>60); Magnesium 2.1 mg/dL (1.9-2.7); Potassium 3.2 mmol/L (3.5-5.0)
[2019-01-15] MEDS: Multivitamins/Minerals TAB PO SCH ×2 (07:53→08:01)
[2019-01-15] MEDS: Cholecalciferol TAB* 1000 UNITS PO SCH (07:53)
[2019-01-15] MEDS: oxyCODONE/Acetamin 5/325 MG* TAB PO PRN ×4 (07:54→22:14)
[2019-01-15] MEDS: Apixaban* 5 MG TAB PO SCH ×2 (07:54→22:14)
[2019-01-15] MEDS: Metoprolol Succinate XL TAB* 100 MG PO SCH (07:54)
[2019-01-15] MEDS: Aspirin 81 mg CHEW TAB* 81 MG TAB.CHEW PO SCH (07:54)
--- NOTE | 2019-01-15 08:40 | PN ---
Subjective Date of Service: 01/15/19 Interval History: Still with low potassium requiring significant repletion. No significant overnight events. Reports better pain control over mouth. Hasn't tried to walk yet today. Agrees to HIV/STI screening. Objective Active Medications: Acetaminophen (Tylenol Tab*) 650 mg PO Q4H PRN PRN Reason: MILD PAIN or TEMP > 100.4 Apixaban (Eliquis*) 5 mg PO BID [facility] Last Admin: 01/15/19 07:54 Dose: 5 mg Aspirin (Aspirin 81 Mg Chew Tab*) 81 mg PO DAILY [facility] Last Admin: 01/15/19 07:54 Dose: 81 mg Cholecalciferol (Vitamin D Tab*) 2,000 units PO DAILY [facility] Last Admin: 01/15/19 07:53 Dose: 2,000 units Fenofibrate (Tricor) 54 mg PO QPM [facility] Last Admin: 01/14/19 18:41 Dose: 54 mg Potassium Chloride (Potassium Chloride 20 Meq/100 Ml Ivpremix*) 20 meq in 100 mls @ 50 mls/hr IV Q2H [facility] Stop: 01/15/19 14:59 Metoprolol Succinate (Toprol Xl Tab*) 100 mg PO DAILY [facility] Last Admin: 01/15/19 07:54 Dose: 100 mg Metoprolol Tartrate (Lopressor Iv*) 5 mg IV Q6H PRN PRN Reason: TACHYCARDIA Multivitamins/Minerals (Theragran/Minerals Tab*) 1 tab PO DAILY [facility] Last Admin: 01/15/19 08:01 Dose: Not Given Oxycodone/Acetaminophen (Percocet 5/325 Tab*) 1 tab PO Q4H PRN PRN Reason: PAIN - MODERATE Last Admin: 01/15/19 07:54 Dose: 1 tab Pantoprazole Sodium (Protonix Tab*) 40 mg PO BEDTIME [facility] Last Admin: 01/14/19 20:51 Dose: 40 mg Vital Signs - 8 hr 01/15/19 01/15/19 01/15/19 01:33 03:15 07:15 Temperature 97.4 F 98.4 F Pulse Rate 93 92 Respiratory 16 18 20 Rate Blood Pressure 142/67 159/72 (mmHg) O2 Sat by Pulse 95 99 Oximetry 01/15/19 07:54 Temperature Pulse Rate Respiratory 18 Rate Blood Pressure (mmHg) O2 Sat by Pulse Oximetry Oxygen Devices in Use Now: None Appearance: nontoxic, in NAD, alert and interactive Ears/Nose/Mouth/Throat: - - ulcerations over back of soft palate, thick yellowish white plaque on roof of mouth Neck: NL Appearance and Movements; NL JVP, Trachea Midline Respiratory: Symmetrical Chest Expansion and Respiratory Effort, Clear to Auscultation Cardiovascular: RRR Abdominal: NL Sounds; No Tenderness; No Distention, No Hepatosplenomegaly Extremities: - - 1+ edema over feet Skin: - - palms with erythematous maculopapular rash that is nonblanching and tender, also over dorsum of hands and forearms but not as concentrated; feet with large fluid-filled bullae Neurological: Alert and Oriented x 3, NL Sensation Result Diagrams: 01/15/19 06:00 01/15/19 14:01 Microbiology and Other Data: Microbiology 01/13/19 12:57 Gram Stain - Final Toe - Right Big Assess/Plan/Problems-Billing Assessment: 73M with metastatic prostate cancer, HTN, GERD, HCV (unknown if treated), who presents with sore throat and diffuse rash. Found with severe hypokalemia. - Patient Problems (1) Rash Comment: Differential broad at this point, including immune mediated/allergy, infectious, or paraneoplastic. Most concerning would be EM vs SJS. 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 - derm contacted and may be able to stop by tomorrow, appreciate recs so far - unable to be seen by Dr. Torres - punch biopsy pending - will f/u HSV swab, immunoglobulins for mycoplasma and CMV, pt consented to HIV /STI screen - will stop fenofibrate, which as been associated with SJS, although pt has been on this for years; will follow up triglycerides (2) Atrial fibrillation Comment: CHADSVASc 3. Back in NSR - likely with afib in setting of stress response and hypokalemia. - switch to apixaban - cont rate control (3) Diastolic heart failure Comment: Seen on echo. - furosemide held given hypokalemia - monitor volume status, restart furosemide with K when able (4) DVT prophylaxis Current Visit: Yes Status: Acute Code(s): Z29.9 - ENCOUNTER FOR PROPHYLACTIC MEASURES, UNSPECIFIED SNOMED Code(s): 887239430 Comment: on therapeutic AC (5) Full code status Current Visit: Yes Status: Acute Code(s): Z78.9 - OTHER SPECIFIED HEALTH STATUS SNOMED Code(s): 912716361
[2019-01-15] MEDS ORDERED: Benzocaine/Menthol LOZ* 1 LOZENGE PO PRN (09:39)
[2019-01-15] MEDS: KCL 20 MEQ/100 ML IVPREMIX* 20 MEQ/100 ML BAG IV SCH ×3 (10:19→15:06)
[2019-01-15 11:44] LABS: Anaplasma phagocytophilium <1:64 titer (<1:64); Ehrlichia chaffeensis IgG AB <1:64 titer (<1:64); Lyme Disease Serology Negative (Negative)
[2019-01-15] MEDS ORDERED: Magic Mouth Was-BEN/MAAL/LIDO SWISH SPIT PRN (14:28)
[2019-01-15 14:37] LABS: BUN/Creatinine Ratio 14.3 (8-20); Calcium 8.7 mg/dL (8.6-10.3); EGFR Non-African American 109.9 (>60); Potassium 3.7 mmol/L (3.5-5.0)
[2019-01-15] MEDS ORDERED: Potassium Chloride* LIQUID 20 MEQ/15 ML UDC PO ONE (15:22)
[2019-01-15 16:29] LABS: HIV 4th Generation Negative (Negative)
[2019-01-15 17:51] LABS: Anaplasma phagocytophilum Negative (Negative); B. miyamotoi PCR, B Negative (Negative); Babesia divergens/MO-1 Negative (Negative); Babesia ducani Negative (Negative); Ehrlichia chaffeensis Negative (Negative); Ehrlichia ewingii/canis Negative (Negative); Ehrlichia muris eauclairensis Negative (Negative)
[2019-01-15] MEDS: Mupirocin 2% OINT* TUBE TOPICAL SCH (22:14)
[2019-01-15] MEDS ORDERED: Metoprolol Tartrate IV* 1 MG/ML 5 ML VIAL IV PRN (23:29)
[2019-01-15] MEDS ORDERED: Metoprolol Tartrate IV* 1 MG/ML 5 ML VIAL ONE (23:32)
[2019-01-16] MEDS ORDERED: Digoxin IV* 0.5 MG/2 ML AMP (0.25 MG/ML) IV SLOW PU ONE (00:30)
[2019-01-16] MEDS ORDERED: Metoprolol Tartrate IV* 1 MG/ML 5 ML VIAL IV ONE (00:30)
[2019-01-16] MEDS ORDERED: Diltiazem 125 mg in 125 mL D5W PREMIX (continuous infusion) IV SCH (04:00)
[2019-01-16] MEDS ORDERED: Diltiazem DRIP* 100 MG/100 ML ADDV.BAG IV SCH (04:00)
[2019-01-16] MEDS: oxyCODONE/Acetamin 5/325 MG* TAB PO PRN ×2 (04:05→07:42)
[2019-01-16 04:44] LABS: Hematocrit 33 % (42-52); Mean Corpuscular HGB Conc 34 g/dL (31-36); Mean Corpuscular Hemoglobin 31 pg (27-31); Mean Corpuscular Volume 90 fL (80-94); Mean Platelet Volume 8.7 fL (7.4-10.4); Platelet Count 270 10^3/uL (150-450); Red Cell Distribution Width 14 % (10-15); White Blood Count 7.6 10^3/uL (3.5-10.8)
[2019-01-16 05:02] LABS: BUN/Creatinine Ratio 16.9 (8-20); Calcium 7.9 mg/dL (8.6-10.3); EGFR Non-African American 133.9 (>60); Magnesium 1.8 mg/dL (1.9-2.7); Potassium 3.5 mmol/L (3.5-5.0)
[2019-01-16] MEDS ORDERED: Magnesium Sulfate 2 GM IV* 2 GM/50 ML BAG IVPB ONE (08:09)
[2019-01-16] MEDS: Apixaban* 5 MG TAB PO SCH ×2 (09:07→21:44)
[2019-01-16] MEDS: Cholecalciferol TAB* 1000 UNITS PO SCH (09:07)
[2019-01-16] MEDS: Aspirin 81 mg CHEW TAB* 81 MG TAB.CHEW PO SCH (09:07)
[2019-01-16] MEDS ORDERED: KCL 20 MEQ/100 ML IVPREMIX* 20 MEQ/100 ML BAG IV SCH (11:00)
[2019-01-16] MEDS ORDERED: Potassium Chlor TAB* 20 MEQ TAB.ER PO ONE (11:11)
[2019-01-16] MEDS: Diltiazem TAB* 30 MG PO SCH ×2 (12:19→17:39)
[2019-01-16] MEDS: Diltiazem 125 mg in 125 mL NS (continuous infusion) IV SCH ×2 (12:26→21:44)
[2019-01-16] MEDS ORDERED: oxyCODONE/Acetamin 5/325 MG* TAB PO PRN (12:42)
[2019-01-16] MEDS: Furosemide TAB* 40 MG PO SCH (16:33)
--- NOTE | 2019-01-16 16:56 | PN ---
Subjective Date of Service: 01/16/19 Interval History: Overnight went into afib with RVR. Patient was asymptomatic. Now on dilt gtt in ICU. Weaning off and switching to oral dilt. One bulla has drained spontaneously - serosanguinous fluid. Pt refusing to walk due to pain. No evidence of infection. Objective Active Medications: Acetaminophen (Tylenol Tab*) 650 mg PO Q4H PRN PRN Reason: MILD PAIN or TEMP > 100.4 Apixaban (Eliquis*) 5 mg PO BID [facility] Last Admin: 01/16/19 09:07 Dose: 5 mg Aspirin (Aspirin 81 Mg Chew Tab*) 81 mg PO DAILY [facility] Last Admin: 01/16/19 09:07 Dose: 81 mg Cholecalciferol (Vitamin D Tab*) 2,000 units PO DAILY [facility] Last Admin: 01/16/19 09:07 Dose: 2,000 units Diltiazem HCl (Cardizem Tab*) 30 mg PO Q6HR [facility] Last Admin: 01/16/19 12:19 Dose: 30 mg Furosemide (Lasix Tab*) 40 mg PO DAILY [facility] Last Admin: 01/16/19 16:33 Dose: 40 mg Diltiazem HCl 125 mg/ Sodium (Chloride) 125 mls @ 15 mls/hr IV Q8H [facility]; Protocol Last Admin: 01/16/19 12:26 Dose: 15 mls/hr Multi-Ingredient Mouthwash/Gargle (Magic Mouth Was-Oneal/Maal/Lido*) 5 ml SWISH SPIT QID PRN PRN Reason: mouth pain Mupirocin (Bactroban 2 % Oint*) 1 applic TOPICAL BID [facility] Last Admin: 01/15/19 22:14 Dose: 1 applic Oxycodone/Acetaminophen (Percocet 5/325 Tab*) 1 tab PO Q8H PRN PRN Reason: PAIN - MODERATE Vital Signs - 8 hr 01/16/19 01/16/19 11:45 15:47 Temperature 99.1 F 99.3 F Oxygen Devices in Use Now: None Appearance: nontoxic, comfortable appearing, alert and interactive Ears/Nose/Mouth/Throat: - - ulcerations over back of soft palate, thick yellow- white plaque on roof of mouth Neck: NL Appearance and Movements; NL JVP, Trachea Midline Respiratory: Symmetrical Chest Expansion and Respiratory Effort, Clear to Auscultation Cardiovascular: - - irregularly irregular, no mgr Abdominal: NL Sounds; No Tenderness; No Distention, No Hepatosplenomegaly Extremities: - - 2+ edema over LEs Skin: - - palms with erythematous maculopapular rash - nonblanching, tender - spreads to dorsum of hands and forearms; feet with large fluid-filled bullae with one open draining serosanguinous fluid Neurological: Alert and Oriented x 3, NL Sensation Result Diagrams: 01/16/19 04:30 01/16/19 04:30 Microbiology and Other Data: Microbiology 01/13/19 12:57 Gram Stain - Final Toe - Right Big Assess/Plan/Problems-Billing Assessment: 73M with metastatic prostate cancer, HTN, GERD, HCV (unknown if treated), who presents with sore throat and diffuse rash. Found with severe hypokalemia. - Patient Problems (1) Rash Comment: Differential broad at this point, including immune mediated/allergy, infectious, or paraneoplastic. Most concerning would be EM vs SJS. 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 - appreciate Derm recs - punch biopsy pending - will f/u HSV swab, immunoglobulins for mycoplasma and CMV, pt consented to HIV /STI screen - will stop fenofibrate, which as been associated with SJS, although pt has been on this for years; will follow up triglycerides (2) Atrial fibrillation Comment: CHADSVASc 3. - cont apixaban - on diltiazem drip, titrating off to PO diltiazem q6h (3) Diastolic heart failure Comment: Seen on echo. - restarting furosemide given LE edema; monitor BMP/Mg - monitor Is & Os, daily weights (4) DVT prophylaxis Current Visit: Yes Status: Acute Code(s): Z29.9 - ENCOUNTER FOR PROPHYLACTIC MEASURES, UNSPECIFIED SNOMED Code(s): 535511106 Comment: on therapeutic AC (5) Full code status Current Visit: Yes Status: Acute Code(s): Z78.9 - OTHER SPECIFIED HEALTH STATUS SNOMED Code(s): 604416674
[2019-01-16] MEDS: Mupirocin 2% OINT* TUBE TOPICAL SCH ×2 (18:45→21:44)
[2019-01-17] MEDS: Diltiazem TAB* 30 MG PO SCH ×5 (00:03→23:51)
[2019-01-17] MEDS: oxyCODONE/Acetamin 5/325 MG* TAB PO PRN ×3 (00:03→20:42)
[2019-01-17 05:23] LABS: BUN/Creatinine Ratio 15.3 (8-20); EGFR African American 128.8 (>60); EGFR Non-African American 106.4 (>60); Magnesium 1.9 mg/dL (1.9-2.7); Potassium 3.3 mmol/L (3.5-5.0)
--- NOTE | 2019-01-17 07:23 | PRO ---
DATE OF PROCEDURE: 01/16/19 - ROOM #ICU-08 PERFORMING PHYSICIAN: Amanda Wood MD SUPERVISING PHYSICIAN: None. PRE-OP DIAGNOSIS: Rash with tense bullae. POST-OP DIAGNOSIS: Rash with tense bullae. PROCEDURE: Incision and drainage of bilateral tense bullae under instruction of Dermatology. INDICATION FOR PROCEDURE: Hospitalist was instructed by dermatologic team to incise and drain tense bullae in hopes of mild pain relief. I was instructed to use an 11 blade and incise 1 to 2 mm with no other disruption. DESCRIPTION OF PROCEDURE: Procedure is as follows. A time-out was performed prior to initiating the procedure. The area was prepped with alcohol. No anesthesia was used. A linear incision with an 11-blade of 1.5 mm was made on the lateral aspects of bilateral bullae at lateral edge of both feet and extended to lateral aspect of bilateral feet and included the top portion of the plantar surface of the foot. After linear incision on right foot, roughly 100 cc of serosanguineous fluid was expressed and mupirocin and Kerlix was applied on top of prior procedure site on left foot. Again, incision made and roughly 75 cc of serosanguineous drainage was expressed and mupirocin and Kerlix was applied to site. Bleeding was minimal. The patient tolerated the procedure well without complications. Standard post-procedure care was explained. Complications none. Nurse assisted in wrapping the feet post and prior. [id number]/[facility] #: [id number] MTDD
[2019-01-17] MEDS: Diltiazem 125 mg in 125 mL NS (continuous infusion) IV SCH ×3 (07:32→14:28)
[2019-01-17] MEDS: Cholecalciferol TAB* 1000 UNITS PO SCH (08:52)
[2019-01-17] MEDS: Apixaban* 5 MG TAB PO SCH ×2 (08:52→21:44)
[2019-01-17] MEDS: Aspirin 81 mg CHEW TAB* 81 MG TAB.CHEW PO SCH (08:52)
[2019-01-17] MEDS: Furosemide TAB* 40 MG PO SCH (08:52)
[2019-01-17] MEDS ORDERED: Potassium Chlor TAB* 20 MEQ TAB.ER PO SCH (09:00)
[2019-01-17] MEDS ORDERED: Magnesium Sulfate 2 GM IV* 2 GM/50 ML BAG IVPB ONE (09:20)
[2019-01-17] MEDS: Potassium Chloride* LIQUID 20 MEQ/15 ML UDC PO SCH ×2 (09:58→21:44)
[2019-01-17] MEDS ORDERED: Potassium Chloride* LIQUID 20 MEQ/15 ML UDC PO ONE (10:00)
--- NOTE | 2019-01-17 12:39 | PN ---
Subjective Date of Service: 01/17/19 Interval History: Seen by dermatology last night - leading suspicion is for HFM disease. Bullae over feet lanced overnight by covering MD. Patient reports improvement in foot discomfort but still refuses to stand or walk. Insists on getting shoes, but evasive as to why his partner cannot bring in his shoes from home, and also evasive about why he cannot use hospital slippers provided. According to RN, patient actually has been standing and states he doesn't want to wear shoes or socks while standing, only wants a towel. Patient also reporting that he cannot use his hands, however it is noted that he is reading the paper without difficulty and also that he can feed himself without difficulty. Still on diltiazem drip. Will increase oral dilt. Objective Active Medications: Acetaminophen (Tylenol Tab*) 650 mg PO Q4H PRN PRN Reason: MILD PAIN or TEMP > 100.4 Apixaban (Eliquis*) 5 mg PO BID [facility] Last Admin: 01/17/19 08:52 Dose: 5 mg Aspirin (Aspirin 81 Mg Chew Tab*) 81 mg PO DAILY [facility] Last Admin: 01/17/19 08:52 Dose: 81 mg Cholecalciferol (Vitamin D Tab*) 2,000 units PO DAILY [facility] Last Admin: 01/17/19 08:52 Dose: 2,000 units Diltiazem HCl (Cardizem Tab*) 60 mg PO Q6HR [facility] Furosemide (Lasix Tab*) 40 mg PO DAILY [facility] Last Admin: 01/17/19 08:52 Dose: 40 mg Diltiazem HCl 125 mg/ Sodium (Chloride) 125 mls @ 15 mls/hr IV Q8H [facility]; Protocol Last Admin: 01/17/19 10:06 Dose: 10 mls/hr Multi-Ingredient Mouthwash/Gargle (Magic Mouth Was-Oneal/Maal/Lido*) 5 ml SWISH SPIT QID PRN PRN Reason: mouth pain Mupirocin (Bactroban 2 % Oint*) 1 applic TOPICAL BID [facility] Last Admin: 01/16/19 21:44 Dose: 1 applic Oxycodone/Acetaminophen (Percocet 5/325 Tab*) 1 tab PO Q6H PRN PRN Reason: PAIN - MODERATE Last Admin: 01/17/19 09:57 Dose: 1 tab Pantoprazole Sodium (Protonix Tab*) 40 mg PO BEDTIME [facility] Potassium Chloride (Potassium Chloride Liquid) 20 meq PO BID [facility] Last Admin: 01/17/19 09:58 Dose: 20 meq Vital Signs - 8 hr 01/17/19 01/17/19 01/17/19 05:00 05:31 06:00 Temperature Pulse Rate 115 93 Respiratory 25 31 18 Rate Blood Pressure 92/72 127/65 (mmHg) O2 Sat by Pulse 93 97 Oximetry 01/17/19 01/17/19 01/17/19 06:31 07:00 07:30 Temperature Pulse Rate 107 93 92 Respiratory 22 19 18 Rate Blood Pressure 142/67 135/72 145/72 (mmHg) O2 Sat by Pulse 99 97 Oximetry 01/17/19 01/17/19 01/17/19 07:48 08:00 08:30 Temperature 98.4 F Pulse Rate 93 91 Respiratory 17 20 Rate Blood Pressure 130/68 129/65 (mmHg) O2 Sat by Pulse 100 100 Oximetry 01/17/19 01/17/19 01/17/19 09:00 09:07 09:30 Temperature Pulse Rate 111 115 125 Respiratory 19 15 20 Rate Blood Pressure 138/77 140/75 (mmHg) O2 Sat by Pulse 97 96 95 Oximetry 01/17/19 01/17/19 01/17/19 09:57 10:00 10:01 Temperature Pulse Rate 112 Respiratory 25 23 23 Rate Blood Pressure (mmHg) O2 Sat by Pulse 97 Oximetry 01/17/19 01/17/19 01/17/19 10:30 11:00 11:01 Temperature Pulse Rate 97 124 Respiratory 16 22 22 Rate Blood Pressure 122/65 144/80 (mmHg) O2 Sat by Pulse 90 98 Oximetry 01/17/19 11:31 Temperature Pulse Rate 118 Respiratory 20 Rate Blood Pressure 128/77 (mmHg) O2 Sat by Pulse 93 Oximetry Appearance: comfortable appearing man in NAD Eyes: No Scleral Icterus Ears/Nose/Mouth/Throat: - - OP erythema improving, still with ulcerations over soft palate Neck: NL Appearance and Movements; NL JVP, Trachea Midline Respiratory: Symmetrical Chest Expansion and Respiratory Effort, Clear to Auscultation Cardiovascular: - - irreg irreg, no mgr Abdominal: NL Sounds; No Tenderness; No Distention, No Hepatosplenomegaly Extremities: - - trace edema over ankles, +wrinkling Skin: - - palms with erythematous maculopapular rash - nonblanching, tender - spreads to dorsum of hands and forearms; feet with open bullae with scant serosanguinous fluid Neurological: Alert and Oriented x 3 Result Diagrams: 01/16/19 04:30 01/17/19 04:54 Microbiology and Other Data: Microbiology 01/13/19 12:57 Gram Stain - Final Toe - Right Big Assess/Plan/Problems-Billing Assessment: 73M with metastatic prostate cancer, HTN, GERD, HCV (unknown if treated), who presents with sore throat and diffuse rash. Found with severe hypokalemia. - Patient Problems (1) Rash Comment: Differential broad at this point, including immune mediated/allergy, infectious, or paraneoplastic. 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 - appreciate Derm recs - punch biopsy pending from 01/14 - will f/u HSV swab, immunoglobulins for mycoplasma and CMV, pt consented to HIV /STI screen - pt stating he cannot walk or use his hands due to lesions, although noted frequently to use hands and also occasionally stand; will have PT/OT evaluate patient (2) Atrial fibrillation Comment: CHADSVASc 3. - cont apixaban - on diltiazem drip, titrating off to PO diltiazem q6h (3) Diastolic heart failure Comment: Seen on echo. - restarting furosemide given LE edema; monitor BMP/Mg - monitor Is & Os, daily weights (4) DVT prophylaxis Current Visit: Yes Status: Acute Code(s): Z29.9 - ENCOUNTER FOR PROPHYLACTIC MEASURES, UNSPECIFIED SNOMED Code(s): 144792428 Comment: on therapeutic AC (5) Full code status Current Visit: Yes Status: Acute Code(s): Z78.9 - OTHER SPECIFIED HEALTH STATUS SNOMED Code(s): 237997313
[2019-01-17] MEDS: Mupirocin 2% OINT* TUBE TOPICAL SCH ×2 (13:03→21:30)
[2019-01-17 14:06] LABS: Chlamydia trachomatis NAA Negative (Negative); Neisseria gonorrhoeae (GC) NAA Negative (Negative)
[2019-01-17] MEDS: Triamcinolone 0.025% OINT * 15 GM TUBE TOPICAL SCH (21:30)
[2019-01-17] MEDS: Pantoprazole TAB * 40 MG TAB PO SCH (21:44)
[2019-01-17] MEDS: Nystatin TOP POWDER* 15 GM BTL TOPICAL SCH (21:46)
[2019-01-18] MEDS ORDERED: diPHENhydraMINE PO* 25 MG PO PRN
[2019-01-18] MEDS: Diltiazem 125 mg in 125 mL NS (continuous infusion) IV SCH ×4 (01:20→20:41)
[2019-01-18] MEDS: Diltiazem TAB* 30 MG PO SCH ×4 (05:34→23:32)
[2019-01-18 05:59] LABS: BUN/Creatinine Ratio 13.2 (8-20); Calcium 8.2 mg/dL (8.6-10.3); EGFR African American 137.6 (>60); EGFR Non-African American 113.7 (>60); Magnesium 1.8 mg/dL (1.9-2.7); Potassium 3.2 mmol/L (3.5-5.0)
[2019-01-18] MEDS: Furosemide TAB* 40 MG PO SCH (09:34)
[2019-01-18] MEDS: Aspirin 81 mg CHEW TAB* 81 MG TAB.CHEW PO SCH (09:34)
[2019-01-18] MEDS: Apixaban* 5 MG TAB PO SCH ×2 (09:34→20:40)
[2019-01-18] MEDS: Potassium Chlor TAB* 20 MEQ TAB.ER PO ONE ×2 (09:34→09:40)
[2019-01-18] MEDS: Cholecalciferol TAB* 1000 UNITS PO SCH (09:34)
[2019-01-18] MEDS: Potassium Chloride* LIQUID 20 MEQ/15 ML UDC PO SCH ×2 (09:41→20:40)
[2019-01-18] MEDS ORDERED: Potassium Chloride* LIQUID 20 MEQ/15 ML UDC PO ONE (09:53)
[2019-01-18] MEDS: Mupirocin 2% OINT* TUBE TOPICAL SCH ×2 (10:34→20:41)
[2019-01-18] MEDS: Triamcinolone 0.025% OINT * 15 GM TUBE TOPICAL SCH ×2 (11:12→20:42)
[2019-01-18] MEDS: Nystatin TOP POWDER* 15 GM BTL TOPICAL SCH ×2 (11:12→20:41)
--- NOTE | 2019-01-18 15:35 | CONSULT ---
Subjective Date of Service: 01/18/19 Interval History: Mr. Mcgee is a 73 yo male with PMH significant for prostate cancer with colon metastasis s/p radiation, HLD, HTN, GERD and hepatitis. Presented to the hospital for sore throat, blisters on feet and rash on arms. Patient presented to the hospital with multiple large blisters to the bottoms of his feet. The blisters were I+D on Thursday with a large of amount of fluid from them. [facility] staff have been keeping dry dressings on the feet, and changing them about every shift. Patient seen and examined at bedside. Family History: Unchanged from Admission Social History: Unchanged from Admission Past Medical History: Unchanged from Admission Review of Systems - Measurements Intake and Output: Intake and Output Last 24 Hours 01/16/19 01/17/19 01/18/19 01/19/19 06:59 06:59 06:59 06:59 Intake Total 151 473.4 2282.2 1150 Output Total 211 100 2048 500 Balance -149 98.4 972.2 650 Weight 248 lb 7.375 oz 247 lb 12.793 oz Intake: IV Fluids 22 NS KVO w meds 22 IVPB 50 63 Magnesium Sulfate 63 NS KVO w meds 50 Medicated IV 31 291.4 134.2 Diltiazem 31 291.4 134.2 Oral 996 571 3590 1150 Output: Urine 217 595 5372 500 Other: Estimated Void Small Estimated Stool Amount Medium # Voids 0 300 - Review of Systems Constitutional Symptoms: Negative: Fever, Other Dermatology: Positive: Other - Rash to hands/arms, and blisters to feet Endocrinology: Positive: Obesity Objective Active Medications: Acetaminophen (Tylenol Tab*) 650 mg PO Q4H PRN Reason: MILD PAIN or TEMP > 100.4 Apixaban (Eliquis*) 5 mg PO BID [facility] Aspirin (Aspirin 81 Mg Chew Tab*) 81 mg PO DAILY [facility] Cholecalciferol (Vitamin D Tab*) 2,000 units PO DAILY [facility] Diltiazem HCl (Cardizem Tab*) 60 mg PO Q6HR [facility] Diphenhydramine HCl (Benadryl Po*) 25 mg PO Q6H PRN Reason: ITCHING Furosemide (Lasix Tab*) 40 mg PO DAILY [facility] Diltiazem HCl 125 mg/ Sodium (Chloride) 125 mls @ 15 mls/hr IV Q8H [facility]; Protocol Multi-Ingredient Mouthwash/Gargle (Magic Mouth Was-Oneal/Maal/Lido*) 5 ml SWISH SPIT QID PRN Reason: mouth pain Mupirocin (Bactroban 2 % Oint*) 1 applic TOPICAL BID [facility] Nystatin (Nystatin Top Powder*) 1 applic TOPICAL BID [facility] Pantoprazole Sodium (Protonix Tab*) 40 mg PO BEDTIME [facility] Polyethylene Glycol/Electrolytes (Miralax*) 17 gm PO DAILY PRN Reason: CONSTIPATION Potassium Chloride (Potassium Chloride Liquid) 20 meq PO BID [facility] Triamcinolone Acetonide (Triamcinolone 0.025% Oint *) 1 applic TOPICAL BID [facility] Vital Signs 01/18/19 01/18/19 01/18/19 12:30 13:00 13:04 Temperature 98.4 F Pulse Rate 110 Respiratory 16 Rate Blood Pressure 123/75 (mmHg) O2 Sat by Pulse 100 Oximetry 01/18/19 14:00 Temperature Pulse Rate 99 Respiratory 17 Rate Blood Pressure 141/62 (mmHg) O2 Sat by Pulse 100 Oximetry Oxygen Devices in Use Now: None Appearance: NAD, sitting up in a chair Ears/Nose/Mouth/Throat: Mucous Membranes Moist, - - Lesions to lips Respiratory: Symmetrical Chest Expansion and Respiratory Effort Extremities: - - Bilateral LE edema, unable to palpate DP Skin: - - See skin note below. Has a papular rash to the hands and arms. Neurological: Alert and Oriented x 3 Nutrition: Taking PO's Result Diagrams: 01/19/19 04:43 01/19/19 04:43 Additional Lab and Data: Above labs were pulled into the note, when it was edited prior to signing on a later date. See below for labs from the day of consultation. Laboratory Tests 01/13/19 01/13/19 01/16/19 09:13 09:13 04:30 WBC 7.6 Hgb 11.0 L Hct 33 L Plt Count 270 ESR 77 H Sodium Potassium Chloride Carbon Dioxide BUN Creatinine Glucose C-Reactive Protein 81.14 H Total Protein 6.9 Albumin 3.6 01/18/19 05:26 WBC Hgb Hct Plt Count ESR Sodium 136 Potassium 3.2 L Chloride 104 Carbon Dioxide 26 BUN 9 Creatinine 0.68 Glucose 120 H C-Reactive Protein Total Protein Albumin Microbiology and Other Data: Microbiology 01/13/19 09:13 Aerobic Blood Culture - Final Blood Venous No Growth Day 5 Anaerobic Blood Culture - Final No Growth Day 5 01/13/19 09:13 Aerobic Blood Culture - Final Blood Venous No Growth Day 5 Anaerobic Blood Culture - Final No Growth Day 5 01/16/19 04:30 Nasal Screen MRSA (PCR) - Final Nasal Mrsa Not Detected 01/13/19 12:57 Skin and Soft Tissue MRSA/MSSA (PCR - Final Toe - Right Big Mrsa Negative S.aureus Positive Gram Stain - Final Wound Culture - Final Staphylococcus Aureus Normal Judy Skin Deviation Note - Skin Deviation Findings Left medial and plantar aspect of the foot - Large drained bullae, measures 9 cm x 3 cm. The surrounding skin is intact, there are no open areas. Right medial aspect - Drained bullae to medial forefoot, measures 8 cm x 7 cm. There are no open areas, no drainage noted. THe surrounding skin is intact. The medial heel bullae is partially drained, measures 5 cm x 11 cm x 0.1 cm. The open area with red granulation tissue in the wound base. The remaining intact bullae with fluctulence. The surrounding skin is intact. Left plantar foot - There is an intact bullae, measures 2 cm x 8 cm. The bullae is intact, the surrounding skin is intact. Left 1st toe - Open area, measures 2.5 cm x 2 cm x 0.1 cm. The wound bed is red granulation tissue, there is a small amount of yellow slough present. The surrounding skin is intact. No drainage noted. Right 1st toe - Superficial open area to the toe, measures 2.5 cm x 2 cm x 0.1 cm. There is yellow slough in the wound bed. There is no drainage. There are intact bullae to the 2nd toe - 2 cm x 3 cm and 3rd toe - 2 cm x 2.5 cm. The 4th and 5th toes with ecchymosis (reports he stubbed his toes prior to admission) Wound Problem/Plan Assessment: Mr. Mcgee is a 73 yo male with PMH significant for prostate cancer with colon metastasis s/p radiation, HLD, HTN, GERD and hepatitis. Presented to the hospital for sore throat, blisters on feet and rash on arms. 1. Bilateral foot blisters. Suspect secondary to hand, foot, and mouth, drug reaction, or erythema multiform. Attempted to debride the blister on the right medial heel. The blister was adherent and a small amount of tissue was debrided , the blister pocket that appeared to be filled with fluid, had gelantenous material in the wound base. There was a small amount of serous drainage from the heel wound. If further debridement is required recommend consulting general surgery. Recommend leaving the wounds open to air, Pt currently declines to have the feet open to air and wound like them covered. In the event that the patient requests dressings on the feet, recommend applying adaptic to the open area on the right medial heel, followed by calcium alginate, and rolled gauze. Apply telfa and rolled gauze to the other blistered areas on the feet. He may require debridement of the right 1st toe if the area of slough isn't removed with cleaning the area and dressing changes. Would recommend using Santyl once daily to the area, followed by telfa and rolled gauze, if no improvement in the slough in a day or 2. Unable to palpate a pulse bilateral LE, recommend considering ABIs to evaluate circulation. 2. Diffuse rash. Management per primary team. 3. Diet. Regular diet. 4. Code Status. Full code status. PROCEDURE NOTE: Pre-procedure DX: Bullae to bilateral feet, right foot with continued fluid filled bullae Post procedure DX: Bullae to bilateral feet, right foot with continued fluid filled bullae Anesthesia: None EBL: None Specimen: None Procedure: Debridement of right heel. The right medial heel was cleaned with betadine and a time out was performed and consent was obtained from the patient. The majority of the ruptured bullae was adherent to the wound bed and unable to be lifted up. Using a pair of surgical scissors a small amount of non viable tissue was removed. A small amount of serous drainage was noted, the inside of the bullae was noted to be red colored gelatinous material and no further debridement was attempted. There was no bleeding. The patient tolerated the procedure well. Is Patient a Wound Clinic Patient: No Status and Disposition: Inpatient. Disposition per primary medicine team. Counseling and/or Coordination of Care Minutes: 60 Points of Discussion: Time for this wound consultation was 60 minutes and 50 minutes was spent at bedside with the patient discussing past medical history; removing dressings; assessing, measuring, and photographing the wound; and I+D of the right heel. Attending: Cindy Jay
[2019-01-18 16:05] LABS: Cytomegalovirus IgG Antibody Negative (Negative)
--- NOTE | 2019-01-18 17:40 | PN ---
Subjective Date of Service: 01/18/19 Interval History: seen this morning, off the Cardizem drip as he converted to sinus rhythm. he reports his pain and rash improving. PT at bedside to assist patient with mobility Past Medical History: Unchanged from Admission Objective Active Medications: Acetaminophen (Tylenol Tab*) 650 mg PO Q4H PRN PRN Reason: MILD PAIN or TEMP > 100.4 Apixaban (Eliquis*) 5 mg PO BID [facility] Last Admin: 01/18/19 09:34 Dose: 5 mg Aspirin (Aspirin 81 Mg Chew Tab*) 81 mg PO DAILY [facility] Last Admin: 01/18/19 09:34 Dose: 81 mg Cholecalciferol (Vitamin D Tab*) 2,000 units PO DAILY [facility] Last Admin: 01/18/19 09:34 Dose: 2,000 units Diltiazem HCl (Cardizem Tab*) 60 mg PO Q6HR [facility] Last Admin: 01/18/19 12:25 Dose: 60 mg Diphenhydramine HCl (Benadryl Po*) 25 mg PO Q6H PRN PRN Reason: ITCHING Last Admin: 01/18/19 00:43 Dose: 25 mg Furosemide (Lasix Tab*) 40 mg PO DAILY [facility] Last Admin: 01/18/19 09:34 Dose: 40 mg Diltiazem HCl 125 mg/ Sodium (Chloride) 125 mls @ 15 mls/hr IV Q8H [facility]; Protocol Last Admin: 01/18/19 13:05 Dose: Not Given Multi-Ingredient Mouthwash/Gargle (Magic Mouth Was-Oneal/Maal/Lido*) 5 ml SWISH SPIT QID PRN PRN Reason: mouth pain Mupirocin (Bactroban 2 % Oint*) 1 applic TOPICAL BID [facility] Last Admin: 01/18/19 10:34 Dose: 1 applic Nystatin (Nystatin Top Powder*) 1 applic TOPICAL BID [facility] Last Admin: 01/18/19 11:12 Dose: Not Given Pantoprazole Sodium (Protonix Tab*) 40 mg PO BEDTIME [facility] Last Admin: 01/17/19 21:44 Dose: 40 mg Polyethylene Glycol/Electrolytes (Miralax*) 17 gm PO DAILY PRN PRN Reason: CONSTIPATION Potassium Chloride (Potassium Chloride Liquid) 20 meq PO BID [facility] Last Admin: 01/18/19 09:41 Dose: 20 meq Triamcinolone Acetonide (Triamcinolone 0.025% Oint *) 1 applic TOPICAL BID [facility] Last Admin: 01/18/19 11:12 Dose: Not Given Vital Signs - 8 hr 01/18/19 01/18/19 01/18/19 10:00 11:00 11:03 Temperature Pulse Rate 107 Respiratory 20 14 14 Rate Blood Pressure (mmHg) O2 Sat by Pulse 97 Oximetry 01/18/19 01/18/19 01/18/19 11:16 12:00 12:01 Temperature Pulse Rate Respiratory 21 15 10 Rate Blood Pressure 142/72 133/83 (mmHg) O2 Sat by Pulse Oximetry 01/18/19 01/18/19 01/18/19 12:30 13:00 13:04 Temperature 98.4 F Pulse Rate 110 Respiratory 16 Rate Blood Pressure 123/75 (mmHg) O2 Sat by Pulse 100 Oximetry 01/18/19 01/18/19 14:00 16:00 Temperature 99 F Pulse Rate 99 Respiratory 17 Rate Blood Pressure 141/62 (mmHg) O2 Sat by Pulse 100 Oximetry Oxygen Devices in Use Now: None Appearance: awake, alert. no distress Eyes: PERRLA Ears/Nose/Mouth/Throat: - - dry oral mucosa. crusted Neck: NL Appearance and Movements; NL JVP, Trachea Midline Respiratory: Symmetrical Chest Expansion and Respiratory Effort, Clear to Auscultation Cardiovascular: NL Sounds; No Murmurs; No JVD Abdominal: NL Sounds; No Tenderness; No Distention Skin: - - erythamous macular papular rash with vesicular ulcers in the center of the papule. both feet significant for open bullae. Neurological: Alert and Oriented x 3 Result Diagrams: 01/16/19 04:30 01/18/19 05:26 Microbiology and Other Data: Microbiology 01/13/19 09:13 Aerobic Blood Culture - Final Blood Venous No Growth Day 5 Anaerobic Blood Culture - Final No Growth Day 5 01/13/19 09:13 Aerobic Blood Culture - Final Blood Venous No Growth Day 5 Anaerobic Blood Culture - Final No Growth Day 5 01/16/19 04:30 Nasal Screen MRSA (PCR) - Final Nasal Mrsa Not Detected 01/13/19 12:57 Skin and Soft Tissue MRSA/MSSA (PCR - Final Toe - Right Big Mrsa Negative S.aureus Positive Gram Stain - Final Wound Culture - Final Staphylococcus Aureus Normal Judy Assess/Plan/Problems-Billing Assessment: 73M with metastatic prostate cancer, HTN, GERD, HCV (unknown if treated), who presents with sore throat and diffuse rash. Found with severe hypokalemia. - Patient Problems (1) Atrial fibrillation Current Visit: Yes Status: Acute Code(s): I48.91 - UNSPECIFIED ATRIAL FIBRILLATION SNOMED Code(s): 02965918 Comment: - CHADSVASc 3. - cont apixaban 5 mg bid - s/p diltiazem drip, PO diltiazem q6h. Will consider placing him on diltiazem CD in am - Supplement electrolytes K+ and Mag+ (2) Diastolic heart failure Current Visit: Yes Status: Acute Code(s): I50.30 - UNSPECIFIED DIASTOLIC ( CONGESTIVE) HEART FAILURE SNOMED Code(s): 334432932 Comment: - Seen on echo. - continue furosemide 40 mg PO daily - monitor Is & Os, daily weights (3) Rash Current Visit: Yes Status: Acute Code(s): R21 - RASH AND OTHER NONSPECIFIC SKIN ERUPTION SNOMED Code(s): 667985496 Comment: - Differential broad at this point, including immune mediated/ allergy, infectious, most likely HFM disease given pharyngitis. - Appreciate Derm recs will continue current topical treatment steroid and abx - Punch biopsy from 01/14 inconclusive clinically does not fit the Philip's johson's syndrome. - will f/u HSV swab, immunoglobulins for mycoplasma pending and CMV pending, pt consented to HIV/STI screen negative. I did add Coxsakie virus A&B today . - pt stating he cannot walk or use his hands due to lesions, although noted frequently - PT/OT evaluate patient. (4) DVT prophylaxis Current Visit: Yes Status: Acute Code(s): Z29.9 - ENCOUNTER FOR PROPHYLACTIC MEASURES, UNSPECIFIED SNOMED Code(s): 585548087 Comment: - on therapeutic AC Status and Disposition: Inpatient.
[2019-01-18] MEDS: Pantoprazole TAB * 40 MG TAB PO SCH (20:41)
[2019-01-19 01:36] LABS: Enterovirus Source LIP
[2019-01-19 01:39] LABS: Varicella Zoster Result Negative (Negative); Varicella Zoster Source LIP
[2019-01-19] MEDS: Diltiazem 125 mg in 125 mL NS (continuous infusion) IV SCH (04:29)
[2019-01-19 05:02] LABS: ABS Eosinophils 0.3 10^3/ul (0-0.6); ABS Monocytes 0.7 10^3/ul (0-0.8); Eosinophil % 4.8 %; Hematocrit 31 % (42-52); Hemoglobin 10.8 g/dL (14.0-18.0); Lymphocyte % 16.5 %; Mean Corpuscular HGB Conc 35 g/dL (31-36); Mean Corpuscular Hemoglobin 32 pg (27-31); Mean Corpuscular Volume 91 fL (80-94); Platelet Count 341 10^3/uL (150-450); Red Blood Count 3.41 10^6 /uL (4.18-5.48); Red Cell Distribution Width 14 % (10-15); White Blood Count 5.9 10^3/uL (3.5-10.8)
[2019-01-19 05:12] LABS: BUN/Creatinine Ratio 11.7 (8-20); Calcium 8.4 mg/dL (8.6-10.3); EGFR African American 119.2 (>60); EGFR Non-African American 98.5 (>60); Magnesium 1.7 mg/dL (1.9-2.7); Potassium 3.4 mmol/L (3.5-5.0)
[2019-01-19] MEDS: Diltiazem TAB* 30 MG PO SCH ×3 (05:27→18:13)
[2019-01-19] MEDS: Potassium Chloride* LIQUID 20 MEQ/15 ML UDC PO SCH ×2 (08:45→22:00)
[2019-01-19] MEDS: Cholecalciferol TAB* 1000 UNITS PO SCH (08:45)
[2019-01-19] MEDS: Aspirin 81 mg CHEW TAB* 81 MG TAB.CHEW PO SCH (08:45)
[2019-01-19] MEDS: Apixaban* 5 MG TAB PO SCH ×2 (08:46→22:00)
[2019-01-19] MEDS: Magnesium Oxide TAB* 400 MG PO SCH ×2 (08:46→21:58)
[2019-01-19] MEDS: Furosemide TAB* 40 MG PO SCH (08:46)
[2019-01-19] MEDS: Triamcinolone 0.025% OINT * 15 GM TUBE TOPICAL SCH ×2 (08:53→23:00)
[2019-01-19] MEDS: Mupirocin 2% OINT* TUBE TOPICAL SCH ×2 (08:53→22:59)
[2019-01-19] MEDS: Nystatin TOP POWDER* 15 GM BTL TOPICAL SCH ×2 (08:53→22:59)
[2019-01-19 12:57] LABS: Mycoplasma pneumoniae IgG Ab Positive (Negative); Mycoplasma pneumoniae IgM Ab Negative (Negative)
[2019-01-19 16:21] LABS: T.Pallidum TP-PA Negative (Negative)
--- NOTE | 2019-01-19 17:29 | PN ---
Subjective Date of Service: 01/19/19 Interval History: patient seen, he feels slightly better, he is able to walk to the bathroom and back. No acute events overnight. His mycoplasma titer positive (IGG but not IGM). Rash stable, no new lesion. majority are crusted already. Wound care note appreciated. Dressing to both feet are applied and dry Past Medical History: Unchanged from Admission Objective Active Medications: Acetaminophen (Tylenol Tab*) 650 mg PO Q4H PRN PRN Reason: MILD PAIN or TEMP > 100.4 Apixaban (Eliquis*) 5 mg PO BID [facility] Last Admin: 01/19/19 08:46 Dose: 5 mg Aspirin (Aspirin 81 Mg Chew Tab*) 81 mg PO DAILY [facility] Last Admin: 01/19/19 08:45 Dose: 81 mg Cholecalciferol (Vitamin D Tab*) 2,000 units PO DAILY [facility] Last Admin: 01/19/19 08:45 Dose: 2,000 units Diltiazem HCl (Cardizem Tab*) 60 mg PO Q6HR [facility] Last Admin: 01/19/19 12:50 Dose: 60 mg Diphenhydramine HCl (Benadryl Po*) 25 mg PO Q6H PRN PRN Reason: ITCHING Last Admin: 01/18/19 00:43 Dose: 25 mg Furosemide (Lasix Tab*) 40 mg PO DAILY [facility] Last Admin: 01/19/19 08:46 Dose: 40 mg Magnesium Oxide (Magox 400 Tab*) 400 mg PO BID [facility] Last Admin: 01/19/19 08:46 Dose: 400 mg Multi-Ingredient Mouthwash/Gargle (Magic Mouth Was-Oneal/Maal/Lido*) 5 ml SWISH SPIT QID PRN PRN Reason: mouth pain Mupirocin (Bactroban 2 % Oint*) 1 applic TOPICAL BID [facility] Last Admin: 01/19/19 08:53 Dose: Not Given Nystatin (Nystatin Top Powder*) 1 applic TOPICAL BID [facility] Last Admin: 01/19/19 08:53 Dose: Not Given Pantoprazole Sodium (Protonix Tab*) 40 mg PO BEDTIME [facility] Last Admin: 01/18/19 20:41 Dose: 40 mg Polyethylene Glycol/Electrolytes (Miralax*) 17 gm PO DAILY PRN PRN Reason: CONSTIPATION Potassium Chloride (Potassium Chloride Liquid) 40 meq PO BID [facility] Last Admin: 01/19/19 08:45 Dose: 40 meq Triamcinolone Acetonide (Triamcinolone 0.025% Oint *) 1 applic TOPICAL BID [facility] Last Admin: 01/19/19 08:53 Dose: Not Given Oxygen Devices in Use Now: None Appearance: awake, alert. no distress Eyes: PERRLA, - Ears/Nose/Mouth/Throat: - - rosemarie-oral crusted vesicular lesions Neck: NL Appearance and Movements; NL JVP, Trachea Midline Respiratory: Symmetrical Chest Expansion and Respiratory Effort, Clear to Auscultation Cardiovascular: NL Sounds; No Murmurs; No JVD Abdominal: NL Sounds; No Tenderness; No Distention Skin: - - erythamous macular papular rash with vesicular ulcers in the center of the papule. both feet significant for open bullae. Result Diagrams: 01/19/19 04:43 01/19/19 04:43 Microbiology and Other Data: Microbiology 01/13/19 09:13 Aerobic Blood Culture - Final Blood Venous No Growth Day 5 Anaerobic Blood Culture - Final No Growth Day 5 01/13/19 09:13 Aerobic Blood Culture - Final Blood Venous No Growth Day 5 Anaerobic Blood Culture - Final No Growth Day 5 01/16/19 04:30 Nasal Screen MRSA (PCR) - Final Nasal Mrsa Not Detected 01/13/19 12:57 Skin and Soft Tissue MRSA/MSSA (PCR - Final Toe - Right Big Mrsa Negative S.aureus Positive Gram Stain - Final Wound Culture - Final Staphylococcus Aureus Normal Judy Assess/Plan/Problems-Billing Assessment: 73M with metastatic prostate cancer, HTN, GERD, HCV (unknown if treated), who presents with sore throat and diffuse rash. Found with severe hypokalemia. - Patient Problems (1) Rash Current Visit: Yes Status: Acute Code(s): R21 - RASH AND OTHER NONSPECIFIC SKIN ERUPTION SNOMED Code(s): 826313081 Comment: - Differential broad at this point, including immune mediated/ allergy, infectious, most likely HFM disease given pharyngitis. - Appreciate Derm recs will continue current topical treatment steroid and abx - Punch biopsy from 01/14 inconclusive clinically does not fit the Philip's johson's syndrome. - Plan discharge in am and VNS if he is agreable. but he does not want to go to [facility] - will f/u HSV swab, immunoglobulins for mycoplasma IGG + but not IGM. CMV negative. pt consented to HIV/STI screen negative. I did add Coxsakie virus A& B 01/18/19. - pt is able to walk and use his hands. I asked if he is interested to go to [facility] to assist with ADL given his lesion, he denied and wants to go home. He does not want to go to [facility] (2) Atrial fibrillation Current Visit: Yes Status: Acute Code(s): I48.91 - UNSPECIFIED ATRIAL FIBRILLATION SNOMED Code(s): 30106728 Comment: - CHADSVASc 3. - cont apixaban 5 mg bid - s/p diltiazem drip, PO diltiazem q6h. Will change to diltiazem CD 180 mg - Supplement electrolytes K+ and Mag+ (3) Diastolic heart failure Current Visit: Yes Status: Acute Code(s): I50.30 - UNSPECIFIED DIASTOLIC ( CONGESTIVE) HEART FAILURE SNOMED Code(s): 674481856 Comment: - Seen on echo. - continue furosemide 40 mg PO daily - monitor Is & Os, daily weights (4) DVT prophylaxis Current Visit: Yes Status: Acute Code(s): Z29.9 - ENCOUNTER FOR PROPHYLACTIC MEASURES, UNSPECIFIED SNOMED Code(s): 902232289 Comment: - on therapeutic AC Status and Disposition: Inpatient.
[2019-01-19] MEDS: Pantoprazole TAB * 40 MG TAB PO SCH (22:00)
[2019-01-20 06:40] LABS: ABS Eosinophils 0.3 10^3/ul (0-0.6); ABS Lymphocytes 0.9 10^3/ul (1.0-4.8); ABS Monocytes 0.6 10^3/ul (0-0.8); ABS Neutrophils 3.3 10^3/ul (1.5-7.7); Hematocrit 34 % (42-52); Hemoglobin 11.6 g/dL (14.0-18.0); Lymphocyte % 17.1 %; Mean Corpuscular HGB Conc 34 g/dL (31-36); Mean Corpuscular Hemoglobin 32 pg (27-31); Mean Corpuscular Volume 92 fL (80-94); Mean Platelet Volume 8.1 fL (7.4-10.4); Platelet Count 377 10^3/uL (150-450); Red Blood Count 3.67 10^6 /uL (4.18-5.48); Red Cell Distribution Width 14 % (10-15); White Blood Count 5.2 10^3/uL (3.5-10.8)
[2019-01-20 06:57] LABS: BUN/Creatinine Ratio 9.9 (8-20); C Reactive Protein 27.63 mg/L (<8.01); Calcium 8.5 mg/dL (8.6-10.3); EGFR African American 112.4 (>60); EGFR Non-African American 92.9 (>60); Magnesium 1.8 mg/dL (1.9-2.7); Potassium 3.7 mmol/L (3.5-5.0)
[2019-01-20 08:57] LABS: Erythrocyte Sed Rate 69 mm/Hr (0-19)
[2019-01-20] MEDS: Furosemide TAB* 40 MG PO SCH (09:25)
[2019-01-20] MEDS: Diltiazem CD CAP* 180 MG PO SCH ×2 (09:25→09:35)
[2019-01-20] MEDS: Magnesium Oxide TAB* 400 MG PO SCH ×2 (09:25→21:54)
[2019-01-20] MEDS: Cholecalciferol TAB* 1000 UNITS PO SCH (09:25)
[2019-01-20] MEDS: Aspirin 81 mg CHEW TAB* 81 MG TAB.CHEW PO SCH (09:26)
[2019-01-20] MEDS: Apixaban* 5 MG TAB PO SCH ×2 (09:26→21:54)
[2019-01-20] MEDS: Nystatin TOP POWDER* 15 GM BTL TOPICAL SCH ×2 (09:26→21:55)
[2019-01-20] MEDS: Mupirocin 2% OINT* TUBE TOPICAL SCH ×2 (09:26→22:12)
[2019-01-20] MEDS: Potassium Chloride* LIQUID 20 MEQ/15 ML UDC PO SCH ×2 (09:26→21:55)
[2019-01-20] MEDS: Triamcinolone 0.025% OINT * 15 GM TUBE TOPICAL SCH ×2 (09:27→22:12)
--- NOTE | 2019-01-20 15:10 | PN ---
Subjective Date of Service: 01/20/19 Interval History: Patient seen today, he changed his mind after discussing with his significant other and he wants rehab and [facility]. Discussed to porter sample case and awaiting approval. Discussed with ID and Dermatology and ok for discharge form their stand of point with local supportive care. Past Medical History: Unchanged from Admission Objective Active Medications: Acetaminophen (Tylenol Tab*) 650 mg PO Q4H PRN PRN Reason: MILD PAIN or TEMP > 100.4 Apixaban (Eliquis*) 5 mg PO BID [facility] Last Admin: 01/20/19 09:26 Dose: 5 mg Aspirin (Aspirin 81 Mg Chew Tab*) 81 mg PO DAILY [facility] Last Admin: 01/20/19 09:26 Dose: 81 mg Cholecalciferol (Vitamin D Tab*) 2,000 units PO DAILY [facility] Last Admin: 01/20/19 09:25 Dose: 2,000 units Diltiazem HCl (Cardizem Cd Cap*) 180 mg PO DAILY [facility] Last Admin: 01/20/19 09:35 Dose: Not Given Diphenhydramine HCl (Benadryl Po*) 25 mg PO Q6H PRN PRN Reason: ITCHING Last Admin: 01/18/19 00:43 Dose: 25 mg Furosemide (Lasix Tab*) 40 mg PO DAILY [facility] Last Admin: 01/20/19 09:25 Dose: 40 mg Magnesium Oxide (Magox 400 Tab*) 400 mg PO BID [facility] Last Admin: 01/20/19 09:25 Dose: 400 mg Multi-Ingredient Mouthwash/Gargle (Magic Mouth Was-Oneal/Maal/Lido*) 5 ml SWISH SPIT QID PRN PRN Reason: mouth pain Mupirocin (Bactroban 2 % Oint*) 1 applic TOPICAL BID [facility] Last Admin: 01/20/19 09:26 Dose: Not Given Nystatin (Nystatin Top Powder*) 1 applic TOPICAL BID [facility] Last Admin: 01/20/19 09:26 Dose: Not Given Pantoprazole Sodium (Protonix Tab*) 40 mg PO BEDTIME [facility] Last Admin: 01/19/19 22:00 Dose: 40 mg Polyethylene Glycol/Electrolytes (Miralax*) 17 gm PO DAILY PRN PRN Reason: CONSTIPATION Potassium Chloride (Potassium Chloride Liquid) 40 meq PO BID [facility] Last Admin: 01/20/19 09:26 Dose: 40 meq Triamcinolone Acetonide (Triamcinolone 0.025% Oint *) 1 applic TOPICAL BID [facility] Last Admin: 01/20/19 09:27 Dose: Not Given Vital Signs - 8 hr 01/20/19 01/20/19 01/20/19 07:44 07:50 12:00 Temperature 97.8 F 97.7 F Pulse Rate 93 97 Respiratory 20 20 16 Rate Blood Pressure 149/77 143/50 (mmHg) O2 Sat by Pulse 100 100 Oximetry Oxygen Devices in Use Now: None Appearance: awake, alert . no distress. Eyes: No Scleral Icterus Ears/Nose/Mouth/Throat: NL Teeth, Lips, Gums, - - crusted superior and inferior labium Neck: NL Appearance and Movements; NL JVP, Trachea Midline Respiratory: Symmetrical Chest Expansion and Respiratory Effort Cardiovascular: NL Sounds; No Murmurs; No JVD, RRR Abdominal: NL Sounds; No Tenderness; No Distention Extremities: No Edema Skin: - - diffuse maculopapular and vesicular rash, majority crusted non blanching. bilateral feet large bullous s/p lancing Neurological: Alert and Oriented x 3 Result Diagrams: 01/20/19 05:57 01/20/19 05:57 Additional Lab and Data: Above labs were pulled into the note, when it was edited prior to signing on a later date. See below for labs from the day of consultation. Laboratory Tests 01/13/19 01/13/19 01/16/19 09:13 09:13 04:30 WBC 7.6 Hgb 11.0 L Hct 33 L Plt Count 270 ESR 77 H Sodium Potassium Chloride Carbon Dioxide BUN Creatinine Glucose C-Reactive Protein 81.14 H Total Protein 6.9 Albumin 3.6 01/18/19 05:26 WBC Hgb Hct Plt Count ESR Sodium 136 Potassium 3.2 L Chloride 104 Carbon Dioxide 26 BUN 9 Creatinine 0.68 Glucose 120 H C-Reactive Protein Total Protein Albumin Microbiology and Other Data: Microbiology 01/13/19 09:13 Aerobic Blood Culture - Final Blood Venous No Growth Day 5 Anaerobic Blood Culture - Final No Growth Day 5 01/13/19 09:13 Aerobic Blood Culture - Final Blood Venous No Growth Day 5 Anaerobic Blood Culture - Final No Growth Day 5 01/16/19 04:30 Nasal Screen MRSA (PCR) - Final Nasal Mrsa Not Detected 01/13/19 12:57 Skin and Soft Tissue MRSA/MSSA (PCR - Final Toe - Right Big Mrsa Negative S.aureus Positive Gram Stain - Final Wound Culture - Final Staphylococcus Aureus Normal Judy Assess/Plan/Problems-Billing Assessment: 73M with metastatic prostate cancer, HTN, GERD, HCV (unknown if treated), who presents with sore throat and diffuse rash. Found with severe hypokalemia. - Patient Problems (1) Rash Current Visit: Yes Status: Acute Code(s): R21 - RASH AND OTHER NONSPECIFIC SKIN ERUPTION SNOMED Code(s): 408003264 Comment: - Differential broad at this point, including immune mediated/ allergy, infectious, most likely HFM disease given pharyngitis. - Appreciate Derm recs will continue current topical treatment steroid and abx - Punch biopsy from 01/14 inconclusive clinically does not fit the Philip's johson's syndrome. - Plan discharge to rehab. Referral made including to [facility]. - will f/u HSV swab Pending, immunoglobulins for mycoplasma IGG + but not IGM. CMV negative. pt consented to HIV/STI screen negative. I did add Coxsakie virus A&B 01/18/19 pending. Varicella negative - pt is able to walk and use his hands. (2) Atrial fibrillation Current Visit: Yes Status: Acute Code(s): I48.91 - UNSPECIFIED ATRIAL FIBRILLATION SNOMED Code(s): 62264217 Comment: - CHADSVASc 3. - cont apixaban 5 mg bid - s/p diltiazem drip, PO diltiazem q6h. Will change to diltiazem CD 180 mg - Supplement electrolytes K+ and Mag+ (3) Diastolic heart failure Current Visit: Yes Status: Acute Code(s): I50.30 - UNSPECIFIED DIASTOLIC ( CONGESTIVE) HEART FAILURE SNOMED Code(s): 302964438 Comment: - Seen on echo. - continue furosemide 40 mg PO daily - monitor Is & Os, daily weights (4) DVT prophylaxis Current Visit: Yes Status: Acute Code(s): Z29.9 - ENCOUNTER FOR PROPHYLACTIC MEASURES, UNSPECIFIED SNOMED Code(s): 423843890 Comment: - on therapeutic AC Status and Disposition: Inpatient. Disposition per primary medicine team.
[2019-01-20 15:20] LABS: Herpes Source LIPS
[2019-01-20] MEDS ORDERED: Diltiazem IV push/loading dose 5 MG/ML 5 ML vial (25 mg) IV SLOW PU ONE ×3 (17:47→19:09)
[2019-01-20] MEDS ORDERED: Diltiazem TAB* 60 MG ONE (17:52)
[2019-01-20] MEDS ORDERED: Diltiazem IV push/loading dose 5 MG/ML 5 ML vial (25 mg) ONE (17:52)
[2019-01-20] MEDS: Diltiazem TAB* 60 MG PO SCH (18:11)
[2019-01-20] MEDS ORDERED: Diltiazem IV VIAL* 125 MG in NS 0.9% 100 ML* 100 ML IV SCH ×2 (21:00→22:55)
[2019-01-20] MEDS: Pantoprazole TAB * 40 MG TAB PO SCH (21:55)
[2019-01-21] MEDS: Diltiazem TAB* 60 MG PO SCH ×4 (00:11→21:33)
[2019-01-21] MEDS ORDERED: Diltiazem IV VIAL* 125 MG in NS 0.9% 100 ML* 100 ML IV SCH (01:47)
[2019-01-21] MEDS: Furosemide TAB* 40 MG PO SCH (09:45)
[2019-01-21] MEDS: Magnesium Oxide TAB* 400 MG PO SCH ×2 (09:45→21:32)
[2019-01-21] MEDS: Aspirin 81 mg CHEW TAB* 81 MG TAB.CHEW PO SCH (09:45)
[2019-01-21] MEDS: Cholecalciferol TAB* 1000 UNITS PO SCH (09:45)
[2019-01-21] MEDS: Apixaban* 5 MG TAB PO SCH ×2 (09:45→21:32)
[2019-01-21] MEDS: Potassium Chloride* LIQUID 20 MEQ/15 ML UDC PO SCH ×2 (09:46→21:36)
[2019-01-21 10:22] LABS: ABS Eosinophils 0.2 10^3/ul (0-0.6); ABS Lymphocytes 0.9 10^3/ul (1.0-4.8); ABS Monocytes 0.7 10^3/ul (0-0.8); ABS Neutrophils 4.2 10^3/ul (1.5-7.7); Eosinophil % 3.1 %; Hematocrit 36 % (42-52); Hemoglobin 12.3 g/dL (14.0-18.0); Lymphocyte % 14.8 %; Mean Corpuscular HGB Conc 34 g/dL (31-36); Mean Corpuscular Hemoglobin 31 pg (27-31); Mean Corpuscular Volume 91 fL (80-94); Mean Platelet Volume 7.7 fL (7.4-10.4); Platelet Count 429 10^3/uL (150-450); Red Blood Count 3.97 10^6 /uL (4.18-5.48); Red Cell Distribution Width 14 % (10-15); White Blood Count 5.9 10^3/uL (3.5-10.8)
[2019-01-21 10:33] LABS: BUN/Creatinine Ratio 8.9 (8-20); Calcium 9.2 mg/dL (8.6-10.3); EGFR African American 99.5 (>60); EGFR Non-African American 82.3 (>60); Potassium 4.5 mmol/L (3.5-5.0)
[2019-01-21] MEDS: Triamcinolone 0.025% OINT * 15 GM TUBE TOPICAL SCH ×2 (12:33→21:39)
[2019-01-21] MEDS: Mupirocin 2% OINT* TUBE TOPICAL SCH ×2 (12:35→21:38)
[2019-01-21] MEDS: Nystatin TOP POWDER* 15 GM BTL TOPICAL SCH ×2 (12:35→21:39)
--- NOTE | 2019-01-21 12:59 | PN ---
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
[2019-01-21 13:21] LABS: Magnesium 1.9 mg/dL (1.9-2.7)
[2019-01-21] MEDS: Metoprolol Tartrate TAB* 25 MG PO SCH ×2 (14:47→21:33)
[2019-01-21] MEDS ORDERED: Magnesium Sulfate 1 GM IV* 1 GM/100 ML BAG IV ONE (17:57)
--- NOTE | 2019-01-21 18:03 | PN ---
Subjective Date of Service: 01/21/19 Interval History: Patient resting in bed on assessment. Denies symptoms with increased in heart rate. Denies cp, palpitations, nausea, vomiting, fever, chills, sob. Reports pain in hands and feet improving. Family History: Unchanged from Admission Social History: Unchanged from Admission Past Medical History: Unchanged from Admission Objective Active Medications: Acetaminophen (Tylenol Tab*) 650 mg PO Q4H PRN PRN Reason: MILD PAIN or TEMP > 100.4 Apixaban (Eliquis*) 5 mg PO BID [facility] Last Admin: 01/21/19 09:45 Dose: 5 mg Aspirin (Aspirin 81 Mg Chew Tab*) 81 mg PO DAILY [facility] Last Admin: 01/21/19 09:45 Dose: 81 mg Cholecalciferol (Vitamin D Tab*) 2,000 units PO DAILY [facility] Last Admin: 01/21/19 09:45 Dose: 2,000 units Diltiazem HCl (Cardizem Tab*) 60 mg PO Q8HR [facility] Diphenhydramine HCl (Benadryl Po*) 25 mg PO Q6H PRN PRN Reason: ITCHING Last Admin: 01/18/19 00:43 Dose: 25 mg Furosemide (Lasix Tab*) 40 mg PO DAILY [facility] Last Admin: 01/21/19 09:45 Dose: 40 mg Magnesium Sulfate/Dextrose (Magnesium Sulfate 1 Gm Iv*) 1 gm in 100 mls @ 200 mls/hr IV ONCE ONE Stop: 01/21/19 18:26 Magnesium Oxide (Magox 400 Tab*) 400 mg PO BID [facility] Last Admin: 01/21/19 09:45 Dose: 400 mg Metoprolol Tartrate (Lopressor Tab*) 25 mg PO BID [facility] Last Admin: 01/21/19 14:47 Dose: 25 mg Multi-Ingredient Mouthwash/Gargle (Magic Mouth Was-Oneal/Maal/Lido*) 5 ml SWISH SPIT QID PRN PRN Reason: mouth pain Mupirocin (Bactroban 2 % Oint*) 1 applic TOPICAL BID [facility] Last Admin: 01/21/19 12:35 Dose: Not Given Nystatin (Nystatin Top Powder*) 1 applic TOPICAL BID [facility] Last Admin: 01/21/19 12:35 Dose: Not Given Pantoprazole Sodium (Protonix Tab*) 40 mg PO BEDTIME [facility] Last Admin: 01/20/19 21:55 Dose: 40 mg Polyethylene Glycol/Electrolytes (Miralax*) 17 gm PO DAILY PRN PRN Reason: CONSTIPATION Potassium Chloride (Potassium Chloride Liquid) 40 meq PO BID [facility] Last Admin: 01/21/19 09:46 Dose: 40 meq Triamcinolone Acetonide (Triamcinolone 0.025% Oint *) 1 applic TOPICAL BID [facility] Last Admin: 01/21/19 12:33 Dose: 1 applic Vital Signs - 8 hr 01/21/19 01/21/19 11:36 14:45 Temperature 97.4 F Pulse Rate 105 120 Respiratory 18 Rate Blood Pressure 120/60 133/56 (mmHg) O2 Sat by Pulse 99 100 Oximetry Oxygen Devices in Use Now: None Appearance: Comfortable, NAD Eyes: No Scleral Icterus Ears/Nose/Mouth/Throat: Clear Oropharnyx, Mucous Membranes Moist Neck: NL Appearance and Movements; NL JVP Respiratory: Symmetrical Chest Expansion and Respiratory Effort, Clear to Auscultation Cardiovascular: NL Sounds; No Murmurs; No JVD, RRR, No Edema Abdominal: NL Sounds; No Tenderness; No Distention Lymphatic: No Cervical Adenopathy Extremities: No Clubbing, Cyanosis Skin: - - Rash to bilateral hands and feet Neurological: Alert and Oriented x 3 Nutrition: Taking PO's Result Diagrams: 01/21/19 10:06 01/21/19 10:06 Additional Lab and Data: Laboratory Results - last 24 hr 01/18/19 01/21/19 01/21/19 21:02 10:06 10:06 WBC 5.9 RBC 3.97 L Hgb 12.3 L Hct 36 L MCV 91 MCH 31 MCHC 34 RDW 14 Plt Count 429 MPV 7.7 Neut % (Auto) 70.5 Lymph % (Auto) 14.8 [place] % (Auto) 11.2 Eos % (Auto) 3.1 Baso % (Auto) 0.4 Absolute Neuts (auto) 4.2 Absolute Lymphs (auto) 0.9 L Absolute Monos (auto) 0.7 Absolute Eos (auto) 0.2 Absolute Basos (auto) 0.0 Absolute Nucleated RBC 0.0 Nucleated RBC % 0.0 Sodium 137 Potassium 4.5 Chloride 104 Carbon Dioxide 27 Anion Gap 6 BUN 8 Creatinine 0.90 Est GFR ( Amer) 99.5 Est GFR (Non-Af Amer) 82.3 BUN/Creatinine Ratio 8.9 Glucose 137 H Calcium 9.2 Magnesium 1.9 Miscellaneous Test Microbiology and Other Data: Microbiology 01/13/19 09:13 Aerobic Blood Culture - Final Blood Venous No Growth Day 5 Anaerobic Blood Culture - Final No Growth Day 5 01/13/19 09:13 Aerobic Blood Culture - Final Blood Venous No Growth Day 5 Anaerobic Blood Culture - Final No Growth Day 5 01/16/19 04:30 Nasal Screen MRSA (PCR) - Final Nasal Mrsa Not Detected 01/13/19 12:57 Skin and Soft Tissue MRSA/MSSA (PCR - Final Toe - Right Big Mrsa Negative S.aureus Positive Gram Stain - Final Wound Culture - Final Staphylococcus Aureus Normal Judy Assess/Plan/Problems-Billing Assessment: 73M with metastatic prostate cancer, HTN, GERD, HCV (unknown if treated), who presents with sore throat and diffuse rash. Found with severe hypokalemia. - Patient Problems (1) Atrial fibrillation Comment: - Despite Diltiazem po q6hr patient's HR continues to be 100 to 130 and sometimes higher with activity. Per nursing patient was unable to be transitioned to CD as he could not swallow the pill. In reviewing patient's chart he was once on Metoprolol Succ 100 mg daily, therefore, I will add Metoprolol (lower dose) and decrease Cardizem with goal to get him back on home dose - CHADSVASc 3. - cont apixaban 5 mg bid - Supplement electrolytes K+ and Mag+ (2) Diastolic heart failure Comment: - Seen on echo. - Continue furosemide 40 mg PO daily - Monitor Is & Os, daily weights (3) Rash Comment: - Differential broad at this point, including immune mediated/allergy, infectious, most likely HFM disease given pharyngitis. - Appreciate Derm recs will continue current topical treatment steroid and abx - Punch biopsy from 01/14 inconclusive clinically does not fit the Philip's johson's syndrome. - Possible AISHA - F/U HSV swab Pending, immunoglobulins for mycoplasma IGG + but not IGM. CMV negative. pt consented to HIV/STI screen negative. Coxsakie virus A&B pending. Varicella negative - Patient is able to walk and use his hands. Cont PT/OT (4) DVT prophylaxis Comment: - On therapeutic AC (5) Full code status Status and Disposition: Inpatient. Disposition per primary medicine team.
[2019-01-21] MEDS: Pantoprazole TAB * 40 MG TAB PO SCH (21:33)
[2019-01-22] MEDS: Diltiazem TAB* 60 MG PO SCH ×3 (05:42→22:40)
[2019-01-22 06:21] LABS: BUN/Creatinine Ratio 10.5 (8-20); Calcium 8.9 mg/dL (8.6-10.3); EGFR African American 104.9 (>60); EGFR Non-African American 86.7 (>60); Magnesium 2.2 mg/dL (1.9-2.7); Potassium 4.7 mmol/L (3.5-5.0)
[2019-01-22] MEDS: Cholecalciferol TAB* 1000 UNITS PO SCH (09:45)
[2019-01-22] MEDS: Magnesium Oxide TAB* 400 MG PO SCH ×2 (09:45→22:39)
[2019-01-22] MEDS: Potassium Chloride* LIQUID 20 MEQ/15 ML UDC PO SCH ×2 (09:46→22:42)
[2019-01-22] MEDS: Furosemide TAB* 40 MG PO SCH (09:46)
[2019-01-22] MEDS: Metoprolol Tartrate TAB* 25 MG PO SCH ×2 (09:46→22:39)
[2019-01-22] MEDS: Aspirin 81 mg CHEW TAB* 81 MG TAB.CHEW PO SCH (09:46)
[2019-01-22] MEDS: Apixaban* 5 MG TAB PO SCH ×2 (09:46→22:40)
[2019-01-22] MEDS: Triamcinolone 0.025% OINT * 15 GM TUBE TOPICAL SCH ×2 (09:47→22:43)
[2019-01-22] MEDS: Nystatin TOP POWDER* 15 GM BTL TOPICAL SCH ×3 (09:47→22:44)
[2019-01-22] MEDS: Mupirocin 2% OINT* TUBE TOPICAL SCH ×2 (09:47→22:44)
--- NOTE | 2019-01-22 16:08 | PN ---
Subjective Date of Service: 01/22/19 Interval History: Patient resting in bed on assessment this morning. Patient reports his feet feel "tight" and "puffy". Patient denies fatigue, weakness, palpitations, sob, cp, fever, chills, nausea, vomiting. Family History: Unchanged from Admission Social History: Unchanged from Admission Past Medical History: Unchanged from Admission Objective Active Medications: Acetaminophen (Tylenol Tab*) 650 mg PO Q4H PRN PRN Reason: MILD PAIN or TEMP > 100.4 Apixaban (Eliquis*) 5 mg PO BID [facility] Last Admin: 01/22/19 09:46 Dose: 5 mg Aspirin (Aspirin 81 Mg Chew Tab*) 81 mg PO DAILY [facility] Last Admin: 01/22/19 09:46 Dose: 81 mg Cholecalciferol (Vitamin D Tab*) 2,000 units PO DAILY [facility] Last Admin: 01/22/19 09:45 Dose: 2,000 units Diltiazem HCl (Cardizem Tab*) 60 mg PO Q8HR [facility] Last Admin: 01/22/19 14:28 Dose: 60 mg Diphenhydramine HCl (Benadryl Po*) 25 mg PO Q6H PRN PRN Reason: ITCHING Last Admin: 01/18/19 00:43 Dose: 25 mg Furosemide (Lasix Tab*) 40 mg PO DAILY [facility] Last Admin: 01/22/19 09:46 Dose: 40 mg Magnesium Oxide (Magox 400 Tab*) 400 mg PO BID [facility] Last Admin: 01/22/19 09:45 Dose: 400 mg Metoprolol Tartrate (Lopressor Tab*) 25 mg PO BID [facility] Last Admin: 01/22/19 09:46 Dose: 25 mg Multi-Ingredient Mouthwash/Gargle (Magic Mouth Was-Oneal/Maal/Lido*) 5 ml SWISH SPIT QID PRN PRN Reason: mouth pain Mupirocin (Bactroban 2 % Oint*) 1 applic TOPICAL BID [facility] Last Admin: 01/22/19 09:47 Dose: 1 applic Nystatin (Nystatin Top Powder*) 1 applic TOPICAL BID [facility] Last Admin: 01/22/19 09:49 Dose: Not Given Pantoprazole Sodium (Protonix Tab*) 40 mg PO BEDTIME [facility] Last Admin: 01/21/19 21:33 Dose: 40 mg Polyethylene Glycol/Electrolytes (Miralax*) 17 gm PO DAILY PRN PRN Reason: CONSTIPATION Potassium Chloride (Potassium Chloride Liquid) 40 meq PO BID [facility] Last Admin: 01/22/19 09:46 Dose: 40 meq Triamcinolone Acetonide (Triamcinolone 0.025% Oint *) 1 applic TOPICAL BID [facility] Last Admin: 01/22/19 09:47 Dose: 1 applic Vital Signs - 8 hr 01/22/19 01/22/19 01/22/19 08:00 08:16 12:00 Temperature 97.7 F 97.3 F Pulse Rate 83 77 Respiratory 20 20 20 Rate Blood Pressure 123/80 135/66 (mmHg) O2 Sat by Pulse 100 100 Oximetry Oxygen Devices in Use Now: None Appearance: Comfortable, NAD Eyes: No Scleral Icterus Ears/Nose/Mouth/Throat: Clear Oropharnyx, Mucous Membranes Moist Neck: NL Appearance and Movements; NL JVP Respiratory: Symmetrical Chest Expansion and Respiratory Effort, Clear to Auscultation Cardiovascular: NL Sounds; No Murmurs; No JVD, RRR, - - Trace edema to bilateral feet Abdominal: NL Sounds; No Tenderness; No Distention Lymphatic: No Cervical Adenopathy Extremities: No Clubbing, Cyanosis Skin: - - Rash to bilateral hands and feet. No lesion in oral mucosa noted today. Neurological: Alert and Oriented x 3, NL Muscle Strength and Tone Nutrition: Taking PO's Result Diagrams: 01/21/19 10:06 01/22/19 05:29 Additional Lab and Data: Laboratory Results - last 24 hr 01/18/19 01/22/19 21:02 05:29 Sodium 134 L Potassium 4.7 Chloride 105 Carbon Dioxide 25 Anion Gap 4 BUN 9 Creatinine 0.86 Est GFR ( Amer) 104.9 Est GFR (Non-Af Amer) 86.7 BUN/Creatinine Ratio 10.5 Glucose 122 H Calcium 8.9 Magnesium 2.2 Miscellaneous Test Microbiology and Other Data: Microbiology 01/13/19 09:13 Aerobic Blood Culture - Final Blood Venous No Growth Day 5 Anaerobic Blood Culture - Final No Growth Day 5 01/13/19 09:13 Aerobic Blood Culture - Final Blood Venous No Growth Day 5 Anaerobic Blood Culture - Final No Growth Day 5 01/16/19 04:30 Nasal Screen MRSA (PCR) - Final Nasal Mrsa Not Detected 01/13/19 12:57 Skin and Soft Tissue MRSA/MSSA (PCR - Final Toe - Right Big Mrsa Negative S.aureus Positive Gram Stain - Final Wound Culture - Final Staphylococcus Aureus Normal Judy Assess/Plan/Problems-Billing Assessment: 73M with metastatic prostate cancer, HTN, GERD, HCV (unknown if treated), who presents with sore throat and diffuse rash. Found with severe hypokalemia. - Patient Problems (1) Atrial fibrillation Comment: - Initially suspected afib with increased rate was secondary to BB withdrawal, but per previous provider patient was still on Metoprolol when he went into Afib with RVR - Currently on Cardizem and Metoprolol and tolerating well. Afib with controlled rate. BP maintaining. - Will await cardiology's input as consult has been requested - Prior to addition of Metoprolol patient was on Diltiazem po q6hr patient's HR was in 100 to 130 and sometimes higher with activity. Attempted to transition to CD but he could not swallow the pill. - CHADSVASc 3. - Cont apixaban 5 mg bid - Supplement electrolytes K+ and Mag+ (2) Diastolic heart failure Comment: - Seen on echo. - Continue furosemide 40 mg PO daily - Monitor Is & Os, daily weights (3) Rash Comment: - Improving - Differential broad at this point, including immune mediated/allergy, infectious, most likely HFM disease given pharyngitis. - Appreciate Derm recs will continue current topical treatment steroid and abx - Punch biopsy from 01/14 inconclusive clinically does not fit the Philip's johson's syndrome. - Possible AISHA - F/U HSV swab Pending, immunoglobulins for mycoplasma IGG + but not IGM. CMV negative. pt consented to HIV/STI screen negative. Coxsakie virus A&B pending. Varicella negative - Patient is able to walk and use his hands. Cont PT/OT (4) DVT prophylaxis Comment: - On therapeutic AC (5) Full code status Status and Disposition: Inpatient. Possibly AISHA
[2019-01-22] MEDS: Pantoprazole TAB * 40 MG TAB PO SCH (22:41)
[2019-01-23] MEDS: Diltiazem TAB* 60 MG PO SCH ×3 (06:58→21:01)
[2019-01-23] MEDS: Cholecalciferol TAB* 1000 UNITS PO SCH (09:54)
[2019-01-23] MEDS: Metoprolol Tartrate TAB* 25 MG PO SCH ×2 (09:55→21:01)
[2019-01-23] MEDS: Apixaban* 5 MG TAB PO SCH ×2 (09:56→21:01)
[2019-01-23] MEDS: Aspirin 81 mg CHEW TAB* 81 MG TAB.CHEW PO SCH (09:56)
[2019-01-23] MEDS: Magnesium Oxide TAB* 400 MG PO SCH ×2 (09:56→21:01)
[2019-01-23] MEDS: Furosemide TAB* 40 MG PO SCH (09:56)
[2019-01-23] MEDS: Potassium Chloride* LIQUID 20 MEQ/15 ML UDC PO SCH ×2 (10:16→21:00)
[2019-01-23] MEDS: Triamcinolone 0.025% OINT * 15 GM TUBE TOPICAL SCH ×2 (11:20→22:00)
[2019-01-23] MEDS: Nystatin TOP POWDER* 15 GM BTL TOPICAL SCH ×2 (11:21→21:58)
[2019-01-23] MEDS: Mupirocin 2% OINT* TUBE TOPICAL SCH ×2 (11:21→22:00)
--- NOTE | 2019-01-23 13:27 | CONS ---
CC: Dr. Dennys Granado; Iraida Khan NP CARDIOLOGY CONSULTATION REPORT: DATE OF CONSULT: 01/23/19 INDICATION FOR CONSULTATION: Atrial fibrillation. HISTORY OF PRESENT ILLNESS: The patient is a 73-year-old gentleman with a history of metastatic pros morejon cancer, hypertension, gastroesophageal reflux disease, who came to the emergency room because of blisters and rash on his hands and feet. The patient was also noted to be in atrial fibrillation. He was admitted to the hospital because of the blisters and decreased mobility because of the sorenes s of his feet. While he is in the hospital, he has undergone extensive evaluation of these blisters. He has had biopsies. He has had consultation with both Infectious Disease and Dermatology. The patient was found to be in atrial fibrillation. He was started on beta blockers and Eliquis. Ul timately, Cardizem was started for better rate control. The patient converted to normal sinus rhythm yesterday. On speaking with the patient, I cannot elicit any symptoms from his atrial fibrillation. It is uncle ar how long he had been in atrial fibrillation prior to his admission here. PAST MEDICAL HISTORY: Significant for metastatic prostate cancer, hyperlipidemia, gastroesophageal r eflux disease, hepatitis C. PAST SURGICAL HISTORY: Cholecystectomy, cataract surgery. OUTPATIENT MEDICATIONS: 1. Multivitamin a day. 2. Pepcid 30 mg a day. 3. Aspirin 81 mg a day. 4. TriCor 48 mg a day. 5. Metoprolol succinate 100 mg a day. 6. Lasix 20 mg a day. ALLERGIES: No known drug allergies. FAMILY HISTORY: His father of heart failure, likely from valvular problems. Mother of old age. No family history of coronary artery disease. SOCIAL HISTORY: He lives with his partner. He denied tobacco or alcohol use. He works at [employer]. REVIEW OF SYSTEMS: Positive for rash. Positive for blisters on his hands and feet. Negative for fe vers and chills. Negative for changes in bowel or bladder habits. Negative for changes in weight. Other 12-point review is unremarkable. PHYSICAL EXAM: Height is 6 feet 1 inches, weight 250 pounds. Temperature 97.7, heart rate is 70 and regular, blood pressure 138/70, respiratory rate is 14, oxygen saturation 100% on room air. Sclerae anicteric. Oropharynx is pink without erythema. Carotids are 2+ without bruits. JVD is normal. T hyroid is normal. Cardiac Exam: S1, S2 without any murmurs, rubs, or gallops. Lungs: Clear to ausc ultation bilaterally. No dullness to percussion. Abdomen is soft, nontender, nondistended with norm al active bowel sounds. Extremities: Show no edema. He has 2+ pulses throughout. The patient is a wake, alert, and oriented. He moves all 4 extremities equally. Again, he has extensive rash and bli sters on his feet and hands. DIAGNOSTIC STUDIES/LAB DATA: CBC within normal limits. Chemistry is within normal limits. BUN 9, c reatinine 0.9. Troponins: First 3 troponins were 0.04 and unchanged. EKG today demonstrates normal sinus rhythm with nonspecific T-wave abnormalities. His initial EKG on 01/13/19 showed atrial fibrillation with rapid ventricular response. An echocardiogram done this admission shows normal LV size and systolic function. No significant valv ular abnormalities. IMPRESSION: This is a 73-year-old gentleman, who came to [facility] because of his bliste rs on his feet and hands. The patient was found to be in atrial fibrillation with rapid ventricular response. The patient denied any symptoms from his atrial fibrillation. The patient is currently treated with metoprolol, calcium channel blockers, and Eliquis. The patient is now in normal sinus rhythm. His echocardiogram during this hospitalization is unremarkable. For now, my recommendation is that the patient continue his current medications. The patient is on po tassium supplementation to keep his potassium level greater than 4. I do not think any other cardiac testing is necessary. I will be glad to see the patient in followup as an outpatient to monitor his cardiac medication and his atrial fibrillation. [id number]/[facility] #: [id number]
--- NOTE | 2019-01-23 16:07 | PN ---
Subjective Date of Service: 01/23/19 Interval History: Patient evaluated this morning while lying in bed. Reports feet continue to feel puffy and painful, but not worse or better than yesterday. Reports he has been up and walking to the bathroom. Reports he feels fatigued. When encourage to walk more to help fatigue patient is resistant. Denies cp, sob, nausea, vomiting, diarrhea, numbness/tingling, fever, chills. Family History: Unchanged from Admission Social History: Unchanged from Admission Past Medical History: Unchanged from Admission Objective Active Medications: Acetaminophen (Tylenol Tab*) 650 mg PO Q4H PRN PRN Reason: MILD PAIN or TEMP > 100.4 Apixaban (Eliquis*) 5 mg PO BID [facility] Last Admin: 01/23/19 09:56 Dose: 5 mg Aspirin (Aspirin 81 Mg Chew Tab*) 81 mg PO DAILY [facility] Last Admin: 01/23/19 09:56 Dose: 81 mg Cholecalciferol (Vitamin D Tab*) 2,000 units PO DAILY [facility] Last Admin: 01/23/19 09:54 Dose: 2,000 units Diltiazem HCl (Cardizem Tab*) 60 mg PO Q8HR [facility] Last Admin: 01/23/19 15:13 Dose: 60 mg Diphenhydramine HCl (Benadryl Po*) 25 mg PO Q6H PRN PRN Reason: ITCHING Last Admin: 01/18/19 00:43 Dose: 25 mg Furosemide (Lasix Tab*) 40 mg PO DAILY [facility] Last Admin: 01/23/19 09:56 Dose: 40 mg Magnesium Oxide (Magox 400 Tab*) 400 mg PO BID [facility] Last Admin: 01/23/19 09:56 Dose: 400 mg Metoprolol Tartrate (Lopressor Tab*) 25 mg PO BID [facility] Last Admin: 01/23/19 09:55 Dose: 25 mg Multi-Ingredient Mouthwash/Gargle (Magic Mouth Was-Oneal/Maal/Lido*) 5 ml SWISH SPIT QID PRN PRN Reason: mouth pain Mupirocin (Bactroban 2 % Oint*) 1 applic TOPICAL BID [facility] Last Admin: 01/23/19 11:21 Dose: Not Given Nystatin (Nystatin Top Powder*) 1 applic TOPICAL BID [facility] Last Admin: 01/23/19 11:21 Dose: Not Given Pantoprazole Sodium (Protonix Tab*) 40 mg PO BEDTIME [facility] Last Admin: 01/22/19 22:41 Dose: 40 mg Polyethylene Glycol/Electrolytes (Miralax*) 17 gm PO DAILY PRN PRN Reason: CONSTIPATION Potassium Chloride (Potassium Chloride Liquid) 40 meq PO BID [facility] Last Admin: 01/23/19 10:16 Dose: 40 meq Triamcinolone Acetonide (Triamcinolone 0.025% Oint *) 1 applic TOPICAL BID [facility] Last Admin: 01/23/19 11:20 Dose: 1 applic Vital Signs - 8 hr 01/23/19 16:00 Temperature 97.7 F Pulse Rate 73 Respiratory 20 Rate Blood Pressure 125/71 (mmHg) O2 Sat by Pulse 100 Oximetry Oxygen Devices in Use Now: None Appearance: Comfortable, NAD Eyes: No Scleral Icterus Ears/Nose/Mouth/Throat: Clear Oropharnyx, Mucous Membranes Moist Neck: NL Appearance and Movements; NL JVP Respiratory: Symmetrical Chest Expansion and Respiratory Effort, Clear to Auscultation Cardiovascular: NL Sounds; No Murmurs; No JVD, RRR, No Edema Abdominal: NL Sounds; No Tenderness; No Distention Lymphatic: No Cervical Adenopathy Extremities: No Clubbing, Cyanosis Skin: - - Rash on bilateral hands and feet. No longer noted in posterior pharnyx Neurological: Alert and Oriented x 3, NL Muscle Strength and Tone Nutrition: Taking PO's Result Diagrams: 01/21/19 10:06 01/22/19 05:29 Additional Lab and Data: . Microbiology and Other Data: Microbiology 01/13/19 09:13 Aerobic Blood Culture - Final Blood Venous No Growth Day 5 Anaerobic Blood Culture - Final No Growth Day 5 01/13/19 09:13 Aerobic Blood Culture - Final Blood Venous No Growth Day 5 Anaerobic Blood Culture - Final No Growth Day 5 01/16/19 04:30 Nasal Screen MRSA (PCR) - Final Nasal Mrsa Not Detected 01/13/19 12:57 Skin and Soft Tissue MRSA/MSSA (PCR - Final Toe - Right Big Mrsa Negative S.aureus Positive Gram Stain - Final Wound Culture - Final Staphylococcus Aureus Normal Judy Assess/Plan/Problems-Billing Assessment: 73M with metastatic prostate cancer, HTN, GERD, HCV (unknown if treated), who presents with sore throat and diffuse rash. Found with severe hypokalemia. - Patient Problems (1) Atrial fibrillation Comment: - Sinus on tele. - Currently on Cardizem and Metoprolol and tolerating well. Sinus. BP maintaining. - Cardiology consulted and agrees with continuing current medication regime. - Initially suspected afib with increased rate was secondary to BB withdrawal, but per previous provider patient was still on Metoprolol when he went into Afib with RVR. - Prior to addition of Metoprolol patient was on Diltiazem po q6hr patient's HR was in 100 to 130 and sometimes higher with activity. Attempted to transition to CD but he could not swallow the pill. - CHADSVASc 3. - Cont apixaban 5 mg bid - Supplement electrolytes K+ and Mag+ (2) Diastolic heart failure Comment: - Appears euvolemic - Seen on echo. - Continue furosemide 40 mg PO daily - Monitor Is & Os, daily weights (3) Rash Comment: - Improving - Differential broad at this point, including immune mediated/allergy, infectious, most likely HFM disease given pharyngitis. - Appreciate Derm recs will continue current topical treatment steroid and abx - Punch biopsy from 01/14 inconclusive clinically does not fit the Philip's johson's syndrome. - Possible AISHA - F/U HSV pending, immunoglobulins for mycoplasma IGG + but not IGM. CMV negative. pt consented to HIV/STI screen negative. Coxsakie virus A&B IgM negative. Varicella negative - Patient is able to walk and use his hands. Cont PT/OT (4) DVT prophylaxis Comment: - On therapeutic AC (5) Full code status Status and Disposition: Inpatient. Possibly AISHA Attending: Shi Altamirano
[2019-01-23] MEDS: Pantoprazole TAB * 40 MG TAB PO SCH (21:01)
[2019-01-24] MEDS: Diltiazem TAB* 60 MG PO SCH ×3 (05:02→21:04)
[2019-01-24 06:35] LABS: ABS Eosinophils 0.3 10^3/ul (0-0.6); ABS Lymphocytes 1.3 10^3/ul (1.0-4.8); ABS Monocytes 0.7 10^3/ul (0-0.8); Eosinophil % 4.3 %; Hematocrit 35 % (42-52); Lymphocyte % 20.6 %; Mean Corpuscular HGB Conc 34 g/dL (31-36); Mean Corpuscular Hemoglobin 31 pg (27-31); Mean Corpuscular Volume 91 fL (80-94); Mean Platelet Volume 7.6 fL (7.4-10.4); Platelet Count 433 10^3/uL (150-450); Red Blood Count 3.84 10^6 /uL (4.18-5.48); Red Cell Distribution Width 14 % (10-15); White Blood Count 6.3 10^3/uL (3.5-10.8)
[2019-01-24 06:59] LABS: BUN/Creatinine Ratio 16.8 (8-20); Calcium 8.9 mg/dL (8.6-10.3); EGFR African American 87.1 (>60); Magnesium 2.3 mg/dL (1.9-2.7)
[2019-01-24 07:11] LABS: Potassium 5.3 mmol/L (3.5-5.0)
[2019-01-24] MEDS: Metoprolol Tartrate TAB* 25 MG PO SCH ×2 (09:36→21:04)
[2019-01-24] MEDS: Magnesium Oxide TAB* 400 MG PO SCH ×2 (09:36→21:04)
[2019-01-24] MEDS: Cholecalciferol TAB* 1000 UNITS PO SCH (09:36)
[2019-01-24] MEDS: Apixaban* 5 MG TAB PO SCH ×2 (09:37→21:04)
[2019-01-24] MEDS: Aspirin 81 mg CHEW TAB* 81 MG TAB.CHEW PO SCH (09:37)
[2019-01-24] MEDS: Furosemide TAB* 40 MG PO SCH (09:37)
[2019-01-24] MEDS: Nystatin TOP POWDER* 15 GM BTL TOPICAL SCH ×2 (09:39→21:06)
[2019-01-24] MEDS: Triamcinolone 0.025% OINT * 15 GM TUBE TOPICAL SCH (09:42)
[2019-01-24] MEDS: Mupirocin 2% OINT* TUBE TOPICAL SCH ×2 (09:42→21:06)
--- NOTE | 2019-01-24 10:14 | PN ---
Subjective Date of Service: 01/24/19 Interval History: Resting in bed on assessment. Reports "puffiness" in feet has improved as he can wiggle his toes with greater ease. Reports his feet keep him from "running out of here", therefore, if they were better he would leave. Patient denies cp, palpitations, weakness, sob, fever, chills, sore throat. Family History: Unchanged from Admission Social History: Unchanged from Admission Past Medical History: Unchanged from Admission Objective Active Medications: Acetaminophen (Tylenol Tab*) 650 mg PO Q4H PRN PRN Reason: MILD PAIN or TEMP > 100.4 Apixaban (Eliquis*) 5 mg PO BID [facility] Last Admin: 01/24/19 09:37 Dose: 5 mg Aspirin (Aspirin 81 Mg Chew Tab*) 81 mg PO DAILY [facility] Last Admin: 01/24/19 09:37 Dose: 81 mg Cholecalciferol (Vitamin D Tab*) 2,000 units PO DAILY [facility] Last Admin: 01/24/19 09:36 Dose: 2,000 units Diltiazem HCl (Cardizem Tab*) 60 mg PO Q8HR [facility] Last Admin: 01/24/19 05:02 Dose: 60 mg Diphenhydramine HCl (Benadryl Po*) 25 mg PO Q6H PRN PRN Reason: ITCHING Last Admin: 01/18/19 00:43 Dose: 25 mg Furosemide (Lasix Tab*) 40 mg PO DAILY [facility] Last Admin: 01/24/19 09:37 Dose: 40 mg Magnesium Oxide (Magox 400 Tab*) 400 mg PO BID [facility] Last Admin: 01/24/19 09:36 Dose: 400 mg Metoprolol Tartrate (Lopressor Tab*) 25 mg PO BID [facility] Last Admin: 01/24/19 09:36 Dose: 25 mg Multi-Ingredient Mouthwash/Gargle (Magic Mouth Was-Oneal/Maal/Lido*) 5 ml SWISH SPIT QID PRN PRN Reason: mouth pain Mupirocin (Bactroban 2 % Oint*) 1 applic TOPICAL BID [facility] Last Admin: 01/24/19 09:42 Dose: Not Given Nystatin (Nystatin Top Powder*) 1 applic TOPICAL BID [facility] Last Admin: 01/24/19 09:39 Dose: Not Given Pantoprazole Sodium (Protonix Tab*) 40 mg PO BEDTIME [facility] Last Admin: 01/23/19 21:01 Dose: 40 mg Polyethylene Glycol/Electrolytes (Miralax*) 17 gm PO DAILY PRN PRN Reason: CONSTIPATION Triamcinolone Acetonide (Triamcinolone 0.025% Oint *) 1 applic TOPICAL BID [facility] Last Admin: 01/24/19 09:42 Dose: Not Given Vital Signs - 8 hr 01/24/19 01/24/19 03:11 08:00 Temperature 98.5 F 97.1 F Pulse Rate 66 67 Respiratory 18 18 Rate Blood Pressure 129/60 128/65 (mmHg) O2 Sat by Pulse 100 97 Oximetry Oxygen Devices in Use Now: None Appearance: Comfortable, NAD Eyes: No Scleral Icterus Ears/Nose/Mouth/Throat: Clear Oropharnyx, Mucous Membranes Moist Neck: NL Appearance and Movements; NL JVP Respiratory: Symmetrical Chest Expansion and Respiratory Effort, Clear to Auscultation Cardiovascular: NL Sounds; No Murmurs; No JVD, RRR, - - Very trace edema to left foot. No edeme to RLE Abdominal: NL Sounds; No Tenderness; No Distention Lymphatic: No Cervical Adenopathy Extremities: No Clubbing, Cyanosis Skin: - - Rash to bilateral hands and feet Neurological: Alert and Oriented x 3 Nutrition: Taking PO's Result Diagrams: 01/24/19 06:13 01/24/19 06:13 Additional Lab and Data: Laboratory Results - last 24 hr 01/24/19 01/24/19 06:13 06:13 WBC 6.3 RBC 3.84 L Hgb 12.0 L Hct 35 L MCV 91 MCH 31 MCHC 34 RDW 14 Plt Count 433 MPV 7.6 Neut % (Auto) 64.0 Lymph % (Auto) 20.6 [place] % (Auto) 10.7 Eos % (Auto) 4.3 Baso % (Auto) 0.4 Absolute Neuts (auto) 4.0 Absolute Lymphs (auto) 1.3 Absolute Monos (auto) 0.7 Absolute Eos (auto) 0.3 Absolute Basos (auto) 0.0 Absolute Nucleated RBC 0.0 Nucleated RBC % 0.0 Sodium 132 L Potassium 5.3 H Chloride 103 Carbon Dioxide 24 Anion Gap 5 BUN 17 Creatinine 1.01 Est GFR ( Amer) 87.1 Est GFR (Non-Af Amer) 72.0 BUN/Creatinine Ratio 16.8 Glucose 116 H Calcium 8.9 Magnesium 2.3 Microbiology and Other Data: Microbiology 01/13/19 09:13 Aerobic Blood Culture - Final Blood Venous No Growth Day 5 Anaerobic Blood Culture - Final No Growth Day 5 01/13/19 09:13 Aerobic Blood Culture - Final Blood Venous No Growth Day 5 Anaerobic Blood Culture - Final No Growth Day 5 01/16/19 04:30 Nasal Screen MRSA (PCR) - Final Nasal Mrsa Not Detected 01/13/19 12:57 Skin and Soft Tissue MRSA/MSSA (PCR - Final Toe - Right Big Mrsa Negative S.aureus Positive Gram Stain - Final Wound Culture - Final Staphylococcus Aureus Normal Judy Assess/Plan/Problems-Billing Assessment: 73M with metastatic prostate cancer, HTN, GERD, HCV (unknown if treated), who presents with sore throat and diffuse rash. Found with severe hypokalemia. - Patient Problems (1) Electrolyte abnormality Comment: - K mildly elevated at 5.2 today. Therefore, hold daily dose of Potassium 40 meq and recheck tomorrow (2) Atrial fibrillation Comment: - Sinus on tele. - Currently on Cardizem and Metoprolol and tolerating well. Sinus. BP maintaining. - Cardiology consulted and agrees with continuing current medication regime. - Patient was still on Metoprolol when he went into Afib with RVR. - Prior to addition of Metoprolol patient was on Diltiazem po q6hr patient's HR was in 100 to 130 and sometimes higher with activity. Attempted to transition to CD but he could not swallow the pill. - CHADSVASc 3. - Cont apixaban 5 mg bid - Supplement electrolytes K+ and Mag+ (3) Diastolic heart failure Comment: - Appears euvolemic - Seen on echo. - Continue furosemide 40 mg PO daily - Monitor Is & Os, daily weights (4) Rash Comment: - Improving - Differential broad at this point, including immune mediated/allergy, infectious, most likely HFM disease given pharyngitis. - Appreciate Derm recs will continue current topical treatment steroid and abx - Punch biopsy from 01/14 inconclusive clinically does not fit the Philip's johson's syndrome. - Possible AISHA - F/U HSV pending, immunoglobulins for mycoplasma IGG + but not IGM. CMV negative. pt consented to HIV/STI screen negative. Coxsakie virus A&B IgM negative. Varicella negative - Patient is able to walk and use his hands. Cont PT/OT (5) DVT prophylaxis Comment: - On therapeutic AC (6) Full code status Status and Disposition: Inpatient. Possibly AISHA Attending: Shi Altamirano
[2019-01-24] MEDS: Polyethylene Glycol 3350* 17 GM PACKET PO PRN (12:49)
[2019-01-24] MEDS: Pantoprazole TAB * 40 MG TAB PO SCH (21:04)
[2019-01-25] MEDS: Acetaminophen TAB* 325 MG PO PRN (00:48)
[2019-01-25] MEDS: Diltiazem TAB* 60 MG PO SCH ×3 (05:53→20:51)
[2019-01-25 06:24] LABS: BUN/Creatinine Ratio 17.9 (8-20); Calcium 9.3 mg/dL (8.6-10.3); EGFR African American 82.4 (>60); EGFR Non-African American 68.1 (>60); Magnesium 2.5 mg/dL (1.9-2.7); Potassium 5.1 mmol/L (3.5-5.0)
[2019-01-25] MEDS: Cholecalciferol TAB* 1000 UNITS PO SCH (08:37)
[2019-01-25] MEDS: Metoprolol Tartrate TAB* 25 MG PO SCH ×2 (08:38→20:53)
[2019-01-25] MEDS: Apixaban* 5 MG TAB PO SCH ×2 (08:38→20:51)
[2019-01-25] MEDS: Aspirin 81 mg CHEW TAB* 81 MG TAB.CHEW PO SCH (08:38)
[2019-01-25] MEDS: Furosemide TAB* 40 MG PO SCH (08:38)
[2019-01-25] MEDS: Magnesium Oxide TAB* 400 MG PO SCH ×2 (08:38→20:52)
[2019-01-25] MEDS: Nystatin TOP POWDER* 15 GM BTL TOPICAL SCH ×2 (08:47→20:53)
[2019-01-25] MEDS: Triamcinolone 0.025% OINT * 15 GM TUBE TOPICAL SCH (08:47)
[2019-01-25] MEDS: Mupirocin 2% OINT* TUBE TOPICAL SCH ×2 (08:47→20:53)
[2019-01-25] MEDS ORDERED: Senna TAB 8.6 mg* TAB PO PRN (14:31)
[2019-01-25] MEDS: Polyethylene Glycol 3350* 17 GM PACKET PO PRN (14:42)
--- NOTE | 2019-01-25 19:59 | PN ---
Subjective Date of Service: 01/25/19 Interval History: PT evaluated patient and recommends OT eval as patient having difficulty putting on shoes. Discussed with patient, his partner, and his daughter that given PT not seeing any further physical therapy needs, then he is likely safe to go home once OT evaluations him and gives him the tools to assist with ADLs. He and his partner offer multiple situations which they express as barriers to him getting home safely. For example, partner is concerned he will not have food because she doesn't drive and he will have difficulty driving. I offered investigating meals on wheels, patient tells me he doesn't want that. Partner is concerned he will not be able to care for himself while home. I reassured and also offered VNS involvement. Patient tells me he does not want to let anyone into his house. At time of evaluation, patient tells me his hand and feet pain are minimally improved. Denies difficulty breathing, chest pain, fever/chills, abd pain. Family History: Unchanged from Admission Social History: Unchanged from Admission Past Medical History: Unchanged from Admission Objective Active Medications: Acetaminophen (Tylenol Tab*) 650 mg PO Q4H PRN PRN Reason: MILD PAIN or TEMP > 100.4 Last Admin: 01/25/19 00:48 Dose: 325 mg Apixaban (Eliquis*) 5 mg PO BID [facility] Last Admin: 01/25/19 08:38 Dose: 5 mg Aspirin (Aspirin 81 Mg Chew Tab*) 81 mg PO DAILY [facility] Last Admin: 01/25/19 08:38 Dose: 81 mg Cholecalciferol (Vitamin D Tab*) 2,000 units PO DAILY [facility] Last Admin: 01/25/19 08:37 Dose: 2,000 units Diltiazem HCl (Cardizem Tab*) 60 mg PO Q8HR [facility] Last Admin: 01/25/19 14:45 Dose: 60 mg Furosemide (Lasix Tab*) 40 mg PO DAILY [facility] Last Admin: 01/25/19 08:38 Dose: 40 mg Magnesium Oxide (Magox 400 Tab*) 400 mg PO BID [facility] Last Admin: 01/25/19 08:38 Dose: 400 mg Metoprolol Tartrate (Lopressor Tab*) 25 mg PO BID [facility] Last Admin: 01/25/19 08:38 Dose: 25 mg Multi-Ingredient Mouthwash/Gargle (Magic Mouth Was-Oneal/Maal/Lido*) 5 ml SWISH SPIT QID PRN PRN Reason: mouth pain Mupirocin (Bactroban 2 % Oint*) 1 applic TOPICAL BID [facility] Last Admin: 01/25/19 08:47 Dose: Not Given Nystatin (Nystatin Top Powder*) 1 applic TOPICAL BID [facility] Last Admin: 01/25/19 08:47 Dose: Not Given Pantoprazole Sodium (Protonix Tab*) 40 mg PO BEDTIME [facility] Last Admin: 01/24/19 21:04 Dose: 40 mg Polyethylene Glycol/Electrolytes (Miralax*) 17 gm PO DAILY PRN PRN Reason: CONSTIPATION Last Admin: 01/25/19 14:42 Dose: 17 gm Senna (Senokot 8.6 Mg Tab*) 1 tab PO BEDTIME PRN PRN Reason: CONSTIPATION Triamcinolone Acetonide (Triamcinolone 0.025% Oint *) 1 applic TOPICAL DAILY [facility] Last Admin: 01/25/19 08:47 Dose: Not Given Vital Signs - 8 hr 01/25/19 01/25/19 12:00 16:00 Temperature 97.4 F 97.6 F Pulse Rate 68 74 Respiratory 20 18 Rate Blood Pressure 138/67 119/65 (mmHg) O2 Sat by Pulse 100 100 Oximetry Oxygen Devices in Use Now: None Appearance: Elderly white male, laying in bed, appearing in NAD Eyes: No Scleral Icterus, PERRLA Ears/Nose/Mouth/Throat: Mucous Membranes Moist Neck: NL Appearance and Movements; NL JVP Respiratory: Symmetrical Chest Expansion and Respiratory Effort, Clear to Auscultation Cardiovascular: NL Sounds; No Murmurs; No JVD, RRR Abdominal: - - abd soft, nontender, nondistended Extremities: No Clubbing, Cyanosis, - - trace edema to left foot Skin: - - nonblanching macular rash to hands extending up bilateral arms, becoming more diffuse toward elbow; drained bullae to bilateral feet with similar nonblanching macular rash isolated to bilateral forefeet Neurological: Alert and Oriented x 3, NL Muscle Strength and Tone Result Diagrams: 01/24/19 06:13 01/25/19 05:36 Additional Lab and Data: Laboratory Results - last 24 hr 01/24/19 01/24/19 06:13 06:13 WBC 6.3 RBC 3.84 L Hgb 12.0 L Hct 35 L MCV 91 MCH 31 MCHC 34 RDW 14 Plt Count 433 MPV 7.6 Neut % (Auto) 64.0 Lymph % (Auto) 20.6 King % (Auto) 10.7 Eos % (Auto) 4.3 Baso % (Auto) 0.4 Absolute Neuts (auto) 4.0 Absolute Lymphs (auto) 1.3 Absolute Monos (auto) 0.7 Absolute Eos (auto) 0.3 Absolute Basos (auto) 0.0 Absolute Nucleated RBC 0.0 Nucleated RBC % 0.0 Sodium 132 L Potassium 5.3 H Chloride 103 Carbon Dioxide 24 Anion Gap 5 BUN 17 Creatinine 1.01 Est GFR ( Amer) 87.1 Est GFR (Non-Af Amer) 72.0 BUN/Creatinine Ratio 16.8 Glucose 116 H Calcium 8.9 Magnesium 2.3 Microbiology and Other Data: Microbiology 01/13/19 09:13 Aerobic Blood Culture - Final Blood Venous No Growth Day 5 Anaerobic Blood Culture - Final No Growth Day 5 01/13/19 09:13 Aerobic Blood Culture - Final Blood Venous No Growth Day 5 Anaerobic Blood Culture - Final No Growth Day 5 01/16/19 04:30 Nasal Screen MRSA (PCR) - Final Nasal Mrsa Not Detected 01/13/19 12:57 Skin and Soft Tissue MRSA/MSSA (PCR - Final Toe - Right Big Mrsa Negative S.aureus Positive Gram Stain - Final Wound Culture - Final Staphylococcus Aureus Normal Judy Assess/Plan/Problems-Billing Assessment: 73M with metastatic prostate cancer, HTN, GERD, HCV (unknown if treated), who presents with sore throat and diffuse rash. Found with severe hypokalemia. - Patient Problems (1) Rash Current Visit: Yes Status: Acute Code(s): R21 - RASH AND OTHER NONSPECIFIC SKIN ERUPTION SNOMED Code(s): 831140245 Comment: - Improving - Differential broad at this point, including immune mediated/allergy, infectious, most likely HFM disease given pharyngitis. - Appreciate Derm recs will continue current topical treatment steroid and abx - Punch biopsy from 01/14 inconclusive clinically does not fit the SJS picture - F/U HSV pending, immunoglobulins for mycoplasma IGG + but not IGM. CMV negative. pt consented to HIV/STI screen negative. Coxsakie virus A&B IgM negative. Varicella negative - Patient is able to walk and use his hands. Cont PT/OT (2) Hyperkalemia Current Visit: Yes Status: Acute Code(s): E87.5 - HYPERKALEMIA SNOMED Code (s): 14438449 Comment: -downtrending, 5.1 today -will continue to monitor -without EKG changes previously (3) Atrial fibrillation Current Visit: Yes Status: Acute Code(s): I48.91 - UNSPECIFIED ATRIAL FIBRILLATION SNOMED Code(s): 41146549 Comment: - Rate controlled now - Currently on Cardizem and Metoprolol and tolerating well. Sinus. BP maintaining. - Cardiology consulted and agrees with continuing current medication regime. - Patient was still on Metoprolol when he went into Afib with RVR. - Prior to addition of Metoprolol patient was on Diltiazem po q6hr patient's HR was in 100 to 130 and sometimes higher with activity. Attempted to transition to CD but he could not swallow the pill. - CHADSVASc 3. - Cont apixaban 5 mg bid - Supplement magnesium oxide, holding KCl in setting of hyperkalemia (4) Diastolic heart failure Current Visit: Yes Status: Acute Code(s): I50.30 - UNSPECIFIED DIASTOLIC ( CONGESTIVE) HEART FAILURE SNOMED Code(s): 046728223 Comment: - Appears euvolemic - Seen on echo. - Continue furosemide 40 mg PO daily - Monitor Is & Os, daily weights (5) DVT prophylaxis Current Visit: Yes Status: Acute Code(s): Z29.9 - ENCOUNTER FOR PROPHYLACTIC MEASURES, UNSPECIFIED SNOMED Code(s): 287094383 Comment: - On eliquis (6) Full code status Current Visit: Yes Status: Acute Code(s): Z78.9 - OTHER SPECIFIED HEALTH STATUS SNOMED Code(s): 316707652 Status and Disposition: Inpatient. Previously awaiting [facility] placement, though now cleared by PT to return home and awaiting OT eval
[2019-01-25] MEDS: Pantoprazole TAB * 40 MG TAB PO SCH (20:52)
[2019-01-26] MEDS: Acetaminophen TAB* 325 MG PO PRN (02:06)
[2019-01-26] MEDS: Diltiazem TAB* 60 MG PO SCH ×2 (05:15→14:41)
[2019-01-26 06:21] LABS: BUN/Creatinine Ratio 21.1 (8-20); Calcium 9.3 mg/dL (8.6-10.3); EGFR African American 75.8 (>60); EGFR Non-African American 62.6 (>60); Potassium 4.8 mmol/L (3.5-5.0)
[2019-01-26] MEDS: Polyethylene Glycol 3350* 17 GM PACKET PO PRN (09:01)
[2019-01-26] MEDS: Cholecalciferol TAB* 1000 UNITS PO SCH (09:07)
[2019-01-26] MEDS: Magnesium Oxide TAB* 400 MG PO SCH (09:08)
[2019-01-26] MEDS: Metoprolol Tartrate TAB* 25 MG PO SCH (09:09)
[2019-01-26] MEDS: Apixaban* 5 MG TAB PO SCH (09:09)
[2019-01-26] MEDS: Furosemide TAB* 40 MG PO SCH (09:10)
[2019-01-26] MEDS: Aspirin 81 mg CHEW TAB* 81 MG TAB.CHEW PO SCH (09:10)
[2019-01-26] MEDS: Mupirocin 2% OINT* TUBE TOPICAL SCH (11:16)
[2019-01-26] MEDS: Nystatin TOP POWDER* 15 GM BTL TOPICAL SCH (11:16)
[2019-01-26] MEDS: Triamcinolone 0.025% OINT * 15 GM TUBE TOPICAL SCH (11:17)
[2019-01-26] MEDS ORDERED: Artificial Tears* 15 ML BTL BOTH EYES PRN (11:47)
[2019-01-26] MEDS ORDERED: Dextran 70/Hypromellose Tears Eye Drops 15 ml BTL (for Artificials Tears) BOTH EYES PRN (12:09)
[2019-01-26 14:53] VITALS: BP 120/51
--- NOTE | 2019-01-26 23:32 | DS ---
CC: Dr. Granado; Dr. Kang; Dr. Bhupinder Torres* DISCHARGE SUMMARY: DATE OF ADMISSION: 01/13/19 DATE OF DISCHARGE: 01/26/19 PROVIDER: JILLIAN Mcelroy. ATTENDING PHYSICIAN WHILE IN THE HOSPITAL: Dr. Russ Lomeli* (dictated by JILLIAN Mcelroy). PRIMARY CARE PROVIDER: Dr. Granado. CONSULTING PIG IRON LOADER: Dr. Kang. CONSULTING INFECTIOUS DISEASE SPECIALIST: Dr. Bhupinder Torres. PRIMARY DIAGNOSES: 1. Rash of the bilateral hands and feet, likely foin-eqon-drodh disease. 2. Atrial fibrillation with rapid ventricular response, now rate controlled. 3. Heart failure with preserved ejection fraction. SECONDARY DIAGNOSES: 1. Prostate cancer with metastasis to the colon. 2. Hyperlipidemia. 3. Hypertension. 4. Gastroesophageal reflux disease. 5. Jaundice. 6. History of hepatitis C. HISTORY OF PRESENT ILLNESS AND HOSPITAL COURSE: Mr. Mcgee is a 73-year-old male with a past medical history significant for prostate cancer with metastasis , hyperlipidemia, hypertension, and history of hepatitis C who presented to the emergency department due to sore throat and rash on his hands and feet. Please see admitting history and physical written by Iraida Khan, nurse practitioner, for further information. During the patient's hospital stay, he was evaluated by junior project coordinator as well as infectious disease specialist. He ultimately had a punch biopsy, which was not conclusive; however, given his clinical picture both the infectious disease team and the dermatology team believe the patient's presentation to be most consistent with [id number] disease. The patient's rash has been slowing resolving with mupirocin cream and triamcinolone cream, as per recommendation of Dr. Kang. The patient had large bullae in his feet which have since improved. The patient has been ultimately very difficult to plan with disposition planning as he was not participatory with physical therapy and was requesting rehab. His partner whom he lives with is difficult with discharge planning as well, both she and the patient refusing many services to the home. Ultimately, the patient was evaluated by physical therapy on 01/25/19 who determined that the patient was not needing any acute physical therapy, and therefore not a candidate for subacute rehabilitation. He was having difficulty putting his shoes on. He was seen by occupational therapy on the date of discharge who provided the patient with sock aid and believed that he was safe to go home. He was having difficulty getting his clothes on, but reportedly told the occupational therapist that he would "not be wearing any clothes at home anyway." For photo documentation of the patient's feet, please see wound care note from 01/18/19 written by Jenni Carrizales, nurse practitioner, in conjunction with Dr. Jay. Additionally, during the patient's hospital stay, he developed atrial fibrillation with rapid ventricular response. Dr. Strauss saw the patient in consultation. The patient was already on metoprolol; however, he had developed rapid ventricular rate despite this and therefore, the best course of action was to start the patient on diltiazem. The patient returned to rate control with this therapy and he was started on Eliquis as well. His echocardiogram was without thrombus. He ultimately preferred being on 7-bttxv-g-day dosing of Cardizem as he found the extra strength tab to be too large and difficult to swallow and felt he was content with this. DISCHARGE PLAN: Diet: Regular unrestricted diet. Activity: The patient may return to normal activity as tolerated with a walker. The patient was advised to return to the emergency department if he experiences any fever or chills, palpitations, chest pain, difficulty breathing, or loss of consciousness. The patient was advised to follow up with [facility] as it does appear he no longer has a primary care provider and Dr. Granado has been providing him with his chronic medications. He was provided the phone number for the [facility]. He was additionally advised to follow up with Dr. Kang regarding his rash and with Dr. Strauss regarding his atrial fibrillation. DISCHARGE MEDICATIONS: 1. Apixaban 5 mg p.o. b.i.d. 2. Diltiazem 60 mg p.o. q.8 hours. 3. Lasix 40 mg p.o. daily. 4. Magnesium oxide 400 mg p.o. b.i.d. 5. Mupirocin 2% ointment 1 application topically b.i.d. 6. Triamcinolone 0.025% ointment 1 application topically daily. Continued Home Medications: 1. Multivitamin tab p.o. daily. 2. Tricor 48 mg p.o. daily. 3. Metoprolol tartrate 25 mg p.o. b.i.d. 4. Lansoprazole 30 mg p.o. at bedtime. 5. Vitamin D 2000 units p.o. daily. 6. Aspirin 81 mg p.o. daily. CONDITION ON DISCHARGE: Stable. DISPOSITION: Home. TIME SPENT: Approximately 40 minutes were spent on this discharge. Approximately half of this time was spent at the bedside discussing the plan of discharge with the patient. JILLIAN MCELROY [id number]/[facility] #: [id number] MTDD
== END 2019-01-26 17:17 | disposition home or self-care (01) | DRG 866 ==
LOC: ED 08:25 → MED 12:47 → ED 13:23 → OBSVTOIN 01-15 10:53 → ICU 01-16 04:14 → MEDTELE 01-18 21:38
PROVIDERS: ADMIT Hospitalist; ATTEND Internal Medicine
PROC: 0H9NXZZ Drainage of Left Foot Skin, External Approach (ICD-10-PCS; principal; 2019-01-16)
PROC: 0H9MXZZ Drainage of Right Foot Skin, External Approach (ICD-10-PCS; 2019-01-16)
PROC: 0HBEXZX Excision of Left Lower Arm Skin, External Approach, Diagnostic (ICD-10-PCS; 2019-01-17)
PROC: 0H9NXZZ Drainage of Left Foot Skin, External Approach (ICD-10-PCS; 2019-01-19)
DX: B08.4 Enteroviral vesicular stomatitis with exanthem (principal); I50.30 Unspecified diastolic (congestive) heart failure; R17 Unspecified jaundice; E66.9 Obesity, unspecified; J02.9 Acute pharyngitis, unspecified; E78.5 Hyperlipidemia, unspecified; K21.9 Gastro-esophageal reflux disease without esophagitis; D64.9 Anemia, unspecified; E87.6 Hypokalemia; M19.90 Unspecified osteoarthritis, unspecified site; I48.91 Unspecified atrial fibrillation; E87.5 Hyperkalemia; E78.00 Pure hypercholesterolemia, unspecified; I11.0 Hypertensive heart disease with heart failure; Z87.01 Personal history of pneumonia (recurrent); Z68.35 Body mass index [BMI] 35.0-35.9, adult; Z85.46 Personal history of malignant neoplasm of prostate; Z85.038 Personal history of other malignant neoplasm of large intestine; Z92.3 Personal history of irradiation; Z86.19 Personal history of other infectious and parasitic diseases; Z90.49 Acquired absence of other specified parts of digestive tract; Z98.41 Cataract extraction status, right eye; Z98.42 Cataract extraction status, left eye; Z91.018 Allergy to other foods; Z82.49 Family history of ischemic heart disease and other diseases of the circulatory system; Z82.61 Family history of arthritis; Z79.01 Long term (current) use of anticoagulants; Z79.82 Long term (current) use of aspirin
CPT/HCPCS: 36415; 80048; 80053; 83605; 83735; 84100; 84484; 85025; 85027; 85610; 85652; 86140; 86618; 86644; 86645; 86658; 86666; 86738; 86753; 86780; 87040; 87070; 87077; 87186; 87205; 87389; 87491; 87498; 87522; 87529; 87591; 87640; 87641; 87798; 88305; 88312; 88346; 88350; 93005; 93306; 97530; 99284; A9270-GY; C8929; G0378; G8978-GP-CH; G8978-GP-CK; G8979-GP-CH; G8980-GP-CH; G8987-GO-CL; G8988-GO-CI; J1160; J1200; J1644; J1650; J3475; J3480; J3490

== ENCOUNTER 2019-07-19 09:13 | Observation (INO) | payer MEDICARE, OTHER ==
--- OUTSIDE RECORDS SUMMARY | 2019-07-19 09:20 | XMS REPORT | Continuity of Care Document ---
:1945 External Reference #:[id number] Author Name Jacqui Jaime MD (transmitted by agent of provider Massiel Najera) Address [address] , [place] [address] Care Team Providers Name Role Phone Daysi Patrick M.D. 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 Problems Description No Information Available Social History Type Date Description Comments Sex Unknown Tobacco Use Start: Unknown Never Smoked Cigarettes Smoking Status Reviewed: 05/31/19 Never Smoked Cigarettes ETOH Use Denies alcohol use Tobacco Use Start: Unknown Patient has never smoked Recreational Drug Use Denies Drug Use Exercise Type/Frequency Does not exercise Allergies, Adverse Reactions, Alerts Description No Known Drug Allergies Medications Active Medications SIG Qnty Indications Ordering Provider Date Magnesium Oxide 400 1 by mouth three 80units Jacqui Jaime, 05/31/2019 times daily 240mg Packet Diltiazem HCL ER 1 by mouth every 90caps Roger Strauss, 03/16/2019 120mg day M.D. Caps ER 12HR Aspirin 1 by mouth every Unknown 81mg Tablets DR day Multivitamin Adult 1 by mouth every Unknown day Tablets Prevacid 1 by mouth every Unknown 30mg Capsules day DR Tricor 1 by mouth every Unknown 48mg Tablets day- pt has been out for the past several months Senna take on tab by Unknown 8.6mg Tablets mouth twice daily as needed Miralax 17 gm every day Unknown 3350NF Powder mixed w/ 8 oz water/juice Lupron Depot 4 mg every three Unknown (1-Month) months 3.75mg Kit Rogaine Extra daily Unknown Strength For Men 5% Solution Furosemide 1 by mouth every 90tabs Roger DDebbi Brand, 40mg Tablets day M.D. Metoprolol Tartrate 1 by mouth twice 120tabs Roger D. Brand, a day M.D. 25mg Tablets Vitamin D2 take 1 tablet by Unknown 2000Unit mouth daily Tablets Eliquis 1 by mouth twice 180tabs Roger D. Brand, 5mg Tablets a day M.D. Magnesium-Oxide 1 by mouth twice Unknown daily 400(241.3mg) mg Tablets Immunizations CPT Code Status Date Vaccine Lot # [id number] Given 05/31/2019 Influenza Virus Vaccine, Quadrivalent, Split, [id number] Preservative Free 40612 Given 05/31/2019 Pneumococcal Conjugate Vaccine 13 Valent For [id number] Intramuscular Use Vital Signs Date Vital Result Comment 05/31/2019 12:58pm Height 72 inches 6'0" Weight 269.00 lb Heart Rate 71 /min BP Systolic Sitting 132 mmHg BP Diastolic Sitting 72 mmHg O2 % BldC Oximetry 97 % BMI (Body Mass Index) 36.5 kg/m2 03/16/2019 7:57am Height 72 inches 6'0" Weight 261.00 lb with shoes Heart Rate 67 /min BP Systolic 122 mmHg Rue large cuff BP Diastolic 70 mmHg Rue large cuff BP Systolic Sitting 122 mmHg Lue large cuff BP Diastolic Sitting 74 mmHg Lue large cuff Respiratory Rate 13 /min BMI (Body Mass Index) 35.4 kg/m2 Ejection Fraction 60-65% ECHO 12/10/2009 Results Description No Information Available Procedures Date Code Description Status 03/16/2019 27163 EKG Tracing & Interpretation Completed 01/23/2019 87996 EKG, Interpretation Only Completed 01/22/2019 19326 EKG, Interpretation Only Completed 01/15/2019 38823 EKG, Interpretation Only Completed 01/14/2019 08934 ECHO Transthorasic Realtime 2D W Doppler & Color Flow Hosp Completed 01/14/2019 65752 Punch Biopsy Of Skin Completed 01/13/2019 05884 EKG, Interpretation Only Completed Medical Devices Description No Information Available Encounters Type Date Location Provider Dx Diagnosis Office Visit 03/16/2019 [facility] Roger Davidson I48.0 Paroxysmal atrial 8:00a Of Rashawn Strauss M.D. fibrillation Office Visit 01/26/2019 [facility] I48.91 Unspecified atrial 9:15a melquiades Bassett PA-C fibrillation Hospitalists R21 Rash and other nonspecific skin eruption I50.30 Unspecified diastolic (congestive) heart failure Office Visit 01/25/2019 [facility] I48.91 Unspecified atrial 9:14a melquiades Bassett PA-C fibrillation Hospitalists I50.30 Unspecified diastolic (congestive) heart failure E87.5 Hyperkalemia R21 Rash and other nonspecific skin eruption Office Visit 01/24/2019 [facility] I48.91 Unspecified atrial 9:14a Assmelquiades simental, [employer] fibrillation Hospitalists I50.30 Unspecified diastolic (congestive) heart failure R21 Rash and other nonspecific skin eruption Office Visit 01/23/2019 [facility] Roger Davidson I48.91 Unspecified atrial 2:04p Of Rashawn Strauss M.D. fibrillation Office Visit 01/23/2019 [facility] I48.91 Unspecified atrial 9:13a Asskamillepc Erin, [employer] fibrillation Hospitalists I50.30 Unspecified diastolic (congestive) heart failure R21 Rash and other nonspecific skin eruption Office Visit 01/22/2019 [facility] I48.91 Unspecified atrial 9:13a Asskamillepc Erin, [employer] fibrillation Hospitalists I50.30 Unspecified diastolic (congestive) heart failure R21 Rash and other nonspecific skin eruption Office Visit 01/21/2019 [facility] I48.91 Unspecified atrial 9:12a Assocpc Erin, [employer] fibrillation Hospitalists I50.30 Unspecified diastolic (congestive) heart failure Office Visit 01/20/2019 [facility] I48.91 Unspecified 9:12a melquiades Bassett M.D. atrial Hospitalists fibrillation I50.30 Unspecified diastolic (congestive) heart failure Office Visit 01/19/2019 [facility] I48.91 Unspecified 9:12a melquiades Bassett M.D. atrial Hospitalists fibrillation I50.30 Unspecified diastolic (congestive) heart failure Office Visit 01/18/2019 [facility] I48.91 Unspecified 9:11a Assoc,melquiades Ferreira M.D. atrial Hospitalists fibrillation I50.30 Unspecified diastolic (congestive) heart failure Office Visit 01/18/2019 8:00a [facility] Jenni Liu L13.9 Bullous disorder, Center AT [facility] ULISES Olivas unspecified R21 Rash and other nonspecific skin eruption Office Visit 01/17/2019 [facility] I48.91 Unspecified atrial 9:11a Assoc,pc MD Jamel fibrillation Hospitalists I50.30 Unspecified diastolic (congestive) heart failure R60.0 Localized edema R21 Rash and other nonspecific skin eruption [facility] and other Assoc,melquiades [place] nonspecific skin Hospitalists eruption I48.91 Unspecified atrial fibrillation I50.30 Unspecified diastolic (congestive) heart failure Office Visit 01/15/2019 9:09a [facility] Marlon Delvalle Rash and other Assoc,melquiades [place] nonspecific skin Hospitalists eruption I48.91 Unspecified atrial fibrillation I50.30 Unspecified diastolic (congestive) heart failure Office Visit 01/13/2019 9:06a [facility] R21 Rash and other Assoc,melquiades Khan NP nonspecific skin Hospitalists eruption J02.9 Acute pharyngitis, unspecified I10 Essential (primary) hypertension Office Visit 01/13/2019 10:54a [facility] Jenni Liu R21 Rash and other Infectious ULISES Olivas nonspecific skin Diseases eruption K13.79 Other lesions of oral mucosa J02.9 Acute pharyngitis, unspecified Assessments Date Code Description Provider 05/31/2019 I48.0 Paroxysmal atrial fibrillation Jacqui Jaime MD 05/31/2019 I10 Essential (primary) hypertension Jacqui Jaime MD 05/31/2019 Z23 Encounter for immunization Jacqui Jaime MD 05/31/2019 C61 Malignant neoplasm of prostate Jacqui Jaime MD 05/31/2019 R60.9 Edema, unspecified Jacqui Jaime MD 05/31/2019 B35.3 Tinea pedis Jacqui Jaime MD 03/16/2019 I48.0 Paroxysmal atrial fibrillation Roger Strauss M.D. 01/26/2019 I48.91 Unspecified atrial fibrillation Kenia Marcus'tom PA-C 01/26/2019 R21 Rash and other nonspecific skin Kenia Marcus'tom, PA-C eruption 01/26/2019 I50.30 Unspecified diastolic (congestive) Kenia O'tom, PA-C heart failure 01/25/2019 I48.91 Unspecified atrial fibrillation Kenia O'tom, PA-C 01/25/2019 I50.30 Unspecified diastolic (congestive) Kenia Marcus'tom, PA-C heart failure 01/25/2019 E87.5 Hyperkalemia Kenia Marcus'tom, PA-C 01/25/2019 R21 Rash and other nonspecific skin Kenia Marcus'tom, PA-C eruption 01/24/2019 I48.91 Unspecified atrial fibrillation Iraida Shortle, [employer] 01/24/2019 I50.30 Unspecified diastolic (congestive) Iraida Shortle, [employer] heart failure 01/24/2019 R21 Rash and other nonspecific skin Iraida Shortle, [employer] eruption 01/23/2019 Z51.81 Encounter for therapeutic drug level Roger Strauss M.D. monitoring 01/23/2019 I48.91 Unspecified atrial fibrillation Roger Strauss M.D. 01/23/2019 I48.91 Unspecified atrial fibrillation Iraida Shortle, [employer] 01/23/2019 I50.30 Unspecified diastolic (congestive) Iraida Shortle, [employer] heart failure 01/23/2019 R21 Rash and other nonspecific skin Iraida Shortle, [employer] eruption 01/22/2019 Z51.81 Encounter for therapeutic drug level Roger Strauss M.D. monitoring 01/22/2019 I48.91 Unspecified atrial fibrillation Iraida Shortle, [employer] 01/22/2019 I50.30 Unspecified diastolic (congestive) Iraida Shortle, [employer] heart failure 01/22/2019 R21 Rash and other nonspecific skin Iraida Shortle, [employer] eruption 01/21/2019 I48.91 Unspecified atrial fibrillation Iraida Shortle, [employer] 01/21/2019 L13.9 Bullous disorder, unspecified Farhana BDebbi Cordovae, [employer] 01/21/2019 I50.30 Unspecified diastolic (congestive) Iraida Shortle, [employer] heart failure 01/21/2019 R21 Rash and other nonspecific skin Farhana Saucedo NP eruption 01/21/2019 Z48.02 Encounter for removal of sutures Farhana Saucedo NP 01/20/2019 I48.91 Unspecified atrial fibrillation Ranjan Ferreira M.D. 01/20/2019 I50.30 Unspecified diastolic (congestive) Ranjan Ferreira M.D. heart failure 01/19/2019 I48.91 Unspecified atrial fibrillation Ranjan Ferreira M.D. 01/19/2019 I50.30 Unspecified diastolic (congestive) Ranjan Ferreira M.D. heart failure 01/18/2019 I48.91 Unspecified atrial fibrillation Ranjan Ferreira M.D. 01/18/2019 L13.9 Bullous disorder, unspecified Jenni Olivas NP 01/18/2019 I50.30 Unspecified diastolic (congestive) Ranjan Ferreira M.D. heart failure 01/18/2019 R21 Rash and other nonspecific skin Jenni Olivas NP eruption 01/17/2019 I48.91 Unspecified atrial fibrillation Jenifer Mccullough MD 01/17/2019 I50.30 Unspecified diastolic (congestive) Jenifer Mccullough MD heart failure 01/17/2019 R60.0 Localized edema Jenifer Mccullough MD 01/17/2019 R21 Rash and other nonspecific skin Jenifer Mccullough MD eruption 01/16/2019 R21 Rash and other nonspecific skin Jenifer Mccullough MD eruption 01/16/2019 I48.91 Unspecified atrial fibrillation Jenifer Mccullough MD 01/16/2019 I50.30 Unspecified diastolic (congestive) Jenifer Mccullough MD heart failure 01/15/2019 R94.31 Abnormal electrocardiogram [ECG] [EKG] Prashanth Kemp M.D. 01/15/2019 R21 Rash and other nonspecific skin Jenifer Mcclulough MD eruption 01/15/2019 I48.91 Unspecified atrial fibrillation Jenifer Mccullough MD 01/15/2019 I50.30 Unspecified diastolic (congestive) Jenifer Mccullough MD heart failure 01/14/2019 R94.31 Abnormal electrocardiogram [ECG] [EKG] Prashanth Kemp M.D. 01/14/2019 R21 Rash and other nonspecific skin Jenifer Mccullough MD eruption 01/14/2019 L13.9 Bullous disorder, unspecified Edgar Floyd, PA 01/14/2019 I48.91 Unspecified atrial fibrillation Jenifer Mccullough MD 01/14/2019 R21 Rash and other nonspecific skin Edgar Floyd, PA eruption 01/14/2019 I50.30 Unspecified diastolic (congestive) Jenifer Mccullough MD heart failure 01/13/2019 R94.31 Abnormal electrocardiogram [ECG] [EKG] Roger Strauss M.D. 01/13/2019 R21 Rash and other nonspecific skin Jenni Olivas, [employer] eruption 01/13/2019 R21 Rash and other nonspecific skin Iraida Khan, [employer] eruption 01/13/2019 K13.79 Other lesions of oral mucosa Jenni Olivas, [employer] 01/13/2019 J02.9 Acute pharyngitis, unspecified Iraida Khan, [employer] 01/13/2019 J02.9 Acute pharyngitis, unspecified Jennirajinder Olivas, [employer] 01/13/2019 I10 Essential (primary) hypertension Iraida Khan NP Plan of Treatment Future Appointment(s):11/29/2019 2:20 pm - Daysi [facility] - Jacqui Jaime MDI48.0 Paroxysmal atrial fibrillationComments:Plan to follow up with Cardiology in Feb 2020 for annualFollow up:Annual in 6 ugqourW95 Essential (primary) [id number] Encounter for immunizationFollow up:6 months for TdapC61 Malignant neoplasm of lpwyazbzZ67.9 Edema, mppitxyrbdiE21.3 Tinea pedis Functional Status Description No Information Available Mental Status Description No Information Available Referrals Description No Information Available
--- NOTE | 2019-07-19 09:52 | ED ---
GI/ HPI - HPI Summary HPI Summary: Patient is a 73 y/o M presenting to [facility] with complaints of rectal bleeding and constipation. He states that he first noticed the bleeding when he attempted to have a bowel movement this morning. The patient is on Eliquis. He states that he was started on Eliquis January 2019 after it was incidentally found that he had afib when being evaluated for hand foot and mouth disease. Patient states that he has required workup for constipation in the past but denies Hx of GI bleed. CP and SOB are denied but the patient endorses abdominal pain. He notes that he has not taken his BP medication this morning. No Hx of abdominal surgeries noted. Patient has Hx of metastatic prostate cancer. Home medications and allergies are reviewed. Home Medications Medication Instructions Recorded Confirmed Type Apixaban* [Eliquis*] 5 mg PO BID #60 tab 01/26/19 07/19/19 Rx Diltiazem TAB* [Cardizem 60 MG 60 mg PO Q8H #90 tab 01/26/19 07/19/19 Rx Tab*] Furosemide TAB* [Lasix TAB*] 40 mg PO DAILY #30 tab 01/26/19 07/19/19 Rx Lansoprazole [Prevacid] 30 mg PO BEDTIME #30 capsule. 01/26/19 07/19/19 Rx Metoprolol Tartrate TAB* 25 mg PO BID #60 tab 01/26/19 07/19/19 Rx [Lopressor TAB*] Aspirin EC TAB* [Ecotrin EC Low 81 mg PO DAILY 07/19/19 07/19/19 History Dose 81 MG*] Magnesium Oxide [Magnesium] 250 mg PO DAILY 07/19/19 07/19/19 History - History of Current Complaint Chief Complaint: EDGIBleed Time Seen by Provider: 07/19/19 09:24 Stated Complaint: RECTAL BLEEDING PER EMS Hx Obtained From: Patient Onset/Duration: Started Hours Ago, Still Present Severity: Moderate Current Severity: Moderate Pain Intensity: 5 Associated Signs and Symptoms: Positive: Constipation, Abdominal Pain, Other: - positive - rectal bleed; negative - SOB. Negative: Chest Pain - Additional Pertinent History Primary Care Physician: MARIEL - Allergy/Home Medications Allergies/Adverse Reactions: Allergies Allergy/AdvReac Type Severity Reaction Status Date / Time grape Allergy Severe Swelling Verified 01/13/19 23:48 Home Medications: Home Medications Apixaban* [Eliquis*] 5 mg PO BID #60 tab 01/26/19 [Rx Confirmed 07/19/19] Diltiazem TAB* [Cardizem 60 MG Tab*] 60 mg PO Q8H #90 tab 01/26/19 [Rx Confirmed 07/19/19] Furosemide TAB* [Lasix TAB*] 40 mg PO DAILY #30 tab 01/26/19 [Rx Confirmed 07/19] Lansoprazole [Prevacid] 30 mg PO BEDTIME #30 capsule. 01/26/19 [Rx Confirmed 07/19/19] Metoprolol Tartrate TAB* [Lopressor TAB*] 25 mg PO BID #60 tab 01/26/19 [Rx Confirmed 07/19/19] Aspirin EC TAB* [Ecotrin EC Low Dose 81 MG*] 81 mg PO DAILY 07/19/19 [History Confirmed 07/19/19] Magnesium Oxide [Magnesium] 250 mg PO DAILY 07/19/19 [History Confirmed 07/19/19 ] PMH/Surg Hx/FS Hx/Imm Hx Endocrine/Hematology History: Denies: Hx Diabetes, Hx Systemic Lupus Erythematosus Cardiovascular History: Reports: Hx Hypercholesterolemia, Hx Hypertension Denies: Hx Congestive Heart Failure, Hx Pacemaker/ICD Respiratory History: Reports: Hx Pneumonia, Other Respiratory Problems/ Disorders - pneumonia, collapsed lung as a child GI History: Reports: Hx Gastroesophageal Reflux Disease - on prevacid, Hx Hiatal Hernia, Hx Jaundice - from hepatitis at approx 16 years old, Other GI Disorders - CHRONIC CONSTIPATION History: Reports: Other Problems/Disorders - 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 Denies: Hx Dialysis, Hx Renal Disease Musculoskeletal History: Reports: Hx Arthritis, Other Musculoskeletal History - CANCER LEFT HIP; METS FROM PROSTATE Denies: Hx Rheumatoid Arthritis Sensory History: Reports: Hx Contacts or Glasses - GLASSES Denies: Hx Hearing Aid Opthamlomology History: Reports: Hx Contacts or Glasses - GLASSES Psychiatric History: Denies: Hx Panic Disorder - Cancer History Cancer Type, Location and Year: malignant neoplasm of the prostste Hx Chemotherapy: Yes - Surgical History Surgery Procedure, Year, and Place[place] [facility] [facility] left eye 2016 [facility] Hx Anesthesia Reactions: No Infectious Disease History: No Infectious Disease History: Reports: Hx Hepatitis - infectious in high school - none now Denies: Traveled Outside the [place] in Last 30 Days - Family History Known Family History: Negative: Cardiac Disease, Hypertension, Diabetes - Social History Alcohol Use: None Hx Substance Use: No Substance Use Type: Reports: None Hx Tobacco Use: No Smoking Status (MU): Never Smoked Tobacco Review of Systems Negative: Chest Pain Negative: Shortness Of Breath Gastrointestinal: Other - positive - rectal bleed, constipation Positive: Abdominal Pain All Other Systems Reviewed And Are Negative: Yes Physical Exam - Summary Physical Exam Summary: Constitutional: Well-developed, Well-nourished, Alert. (-) Distressed Skin: Warm, Dry, Pale HENT: Normocephalic; Atraumatic Eyes: Conjunctiva normal Neck: Musculoskeletal ROM normal neck. (-) JVD, (-) Stridor, (-) Tracheal deviation Cardio: Rhythm regular, rate normal, Heart sounds normal; Intact distal pulses; The pedal pulses are 2+ and symmetric. Radial pulses are 2+ and symmetric. (-) Murmur Pulmonary/Chest wall: Effort normal. (-) Respiratory distress, (-) Wheezes, (-) Rales Abd: Soft, (-) tenderness, (-) Distension, (-) Guarding, (-) Rebound Rectal Exam: Dark blood noted, no active bleeding, pain on KIM Musculoskeletal: (-) Edema Lymph: (-) Cervical adenopathy Neuro: Alert, Oriented x3 Psych: Mood and affect Normal Triage Information Reviewed: Yes Vital Signs On Initial Exam: Initial Vitals Temp Pulse Resp BP Pulse Ox 98.4 F 79 16 152/68 99 07/19/19 09:27 07/19/19 09:27 07/19/19 09:27 07/19/19 09:27 07/19/19 09:27 Vital Signs Reviewed: Yes Procedures - Sedation Patient Received Moderate/Deep Sedation with Procedure: No Diagnostics - Vital Signs Vital Signs Temp Pulse Resp BP Pulse Ox 07/19/19 09:27 98.4 F 79 16 152/68 99 - Laboratory Result Diagrams: 07/19/19 09:56 07/19/19 09:56 Lab Statement: Any lab studies that have been ordered have been reviewed, and results considered in the medical decision making process. - EKG 1507 Cardiac Rate: NL - rate of 77 BPM EKG Rhythm: Sinus Rhythm Summary of EKG Findings: EKG showed sinus rhythm with rate of 77 BPM, no ischemic changes. ED physician has reviewed and interpreted this EKG. Re-Evaluation - Re-Evaluation First Eval Re-Evaluation Time: 11:38 Comment: 373 mL on bladder scan. GIGU Course/Dx - Course Course Of Treatment: Patient is a 73 y/o M presenting to [facility] with complaints of rectal bleeding and constipation. He states that he first noticed the bleeding when he attempted to have a bowel movement this morning. The patient is on Eliquis. He states that he was started on Eliquis January 2019 after it was incidentally found that he had afib when being evaluated for hand foot and mouth disease. Patient states that he has required workup for constipation in the past but denies Hx of GI bleed. CP and SOB are denied but the patient endorses abdominal pain. He notes that he has not taken his BP medication this morning. No Hx of abdominal surgeries noted. Patient has Hx of metastatic prostate cancer. On physical exam, patient is noted to be pale-appearing. Abdomen is soft and non-tender. Dark blood was noted on rectal exam, no active bleeding, pain on KIM. Stool occult test was positive. EKG showed sinus rhythm with rate of 77 BPM, no ischemic changes. Bloodwork was obtained, abnormal values include WBC 10.9, Hgb 13.6, Hct 40, absolute neuts 9.6, absolute lymphs 0.7, INR 1.42, potassium 3.3, glucose 124. During ED course, patient received fluids, Zofran 4 mg IV, morphine 4 mg IV, Lopressor 25 mg PO, dilaudid 1 mg IV. Patient had refused CT ABD/PEL. Dr. Horta, GI, was contacted with regards to the patient, he will consult on this case. Patient's case was discussed with Dr. Altamirano. Hospitalist services evaluated the patient for admission, patient was [place] [facility] - Diagnoses Provider Diagnoses: GI bleed - Physician Notifications Discussed Care Of Patient With: Shi Altamirano Time Discussed With Above Provider: 13:53 Instructed by Provider To: Other - Patient's case was discussed with Dr. Altamirano. Hospitalist services evaluated the patient for admission, patient was admitted [place] [facility] Discharge ED - Sign-Out/Discharge Documenting (check all that apply): Patient Departure - admit - Discharge Plan Condition: Stable Disposition: ADMITTED TO [facility] - Billing Disposition and Condition Condition: STABLE Disposition: Admitted to [facility] - Attestation Statements Document Initiated by Scribe: Yes Documenting Scribe: JEANNETTE VASQUEZ Provider For Whom Scribe is Documenting (Include Credential): JUNIOR FRAZIER DO Scribkrishna Attestation: IJEANNETTE, scribed for JUNIOR FRAZIER DO on 07/19/19 at 1924. Scribe Documentation Reviewed: Yes Provider Attestation: The documentation as recorded by the JEANNETTE boland accurately reflects the service I personally performed and the decisions made by , JUNIOR FRAZIER DO Status of Scribe Document: Viewed
[2019-07-19 10:07] LABS: ABS Eosinophils 0.1 10^3/ul (0-0.6); ABS Lymphocytes 0.7 10^3/ul (1.0-4.8); ABS Monocytes 0.5 10^3/ul (0-0.8); ABS Neutrophils 9.6 10^3/ul (1.5-7.7); Eosinophil % 0.5 %; Hematocrit 40 % (42-52); Hemoglobin 13.6 g/dL (14.0-18.0); Lymphocyte % 6.5 %; Mean Corpuscular HGB Conc 34 g/dL (31-36); Mean Corpuscular Hemoglobin 30 pg (27-31); Mean Corpuscular Volume 88 fL (80-94); Mean Platelet Volume 8.4 fL (7.4-10.4); Nucleated Red Blood Cells % 0.1; Platelet Count 323 10^3/uL (150-450); Red Cell Distribution Width 14 % (10-15); White Blood Count 10.9 10^3/uL (3.5-10.8)
[2019-07-19 10:19] LABS: Activated Partial Thrombo Time 37.5 seconds (26.0-38.0); INR 1.42 (0.82-1.09)
[2019-07-19] MEDS ORDERED: Metoprolol Tartrate TAB* 25 MG PO ONE (10:19)
[2019-07-19 10:34] LABS: Albumin 4.2 g/dL (3.2-5.2); Albumin/Globulin Ratio 1.2 (1-3); Calcium 9.4 mg/dL (8.6-10.3); EGFR African American 88.1 (>60); EGFR Non-African American 72.8 (>60); Globulin 3.6 g/dL (2-4); Potassium 3.3 mmol/L (3.5-5.0); Total Bilirubin 0.5 mg/dL (0.2-1.0); Total Protein 7.8 g/dL (6.4-8.9)
[2019-07-19] MEDS ORDERED: NS 0.9% 1000 ML** 1,000 ML IV ONE (11:03)
[2019-07-19] MEDS ORDERED: Morphine 4 MG/ML VIAL (1 ml) 4 MG/ML VIAL IV ONE (11:17)
[2019-07-19] MEDS ORDERED: Ondansetron INJ* 2 MG/ML VIAL IV ONE (11:17)
[2019-07-19] MEDS ORDERED: HYDROmorphone INJ* 0.5 MG/0.5 ML SYRINGE IV ONE (12:36)
[2019-07-19] MEDS ORDERED: Acetaminophen TAB* 325 MG PO PRN (16:54)
[2019-07-19] MEDS ORDERED: Potassium Chloride* LIQUID 20 MEQ/15 ML UDC PO ONE (17:45)
[2019-07-19] MEDS ORDERED: Diltiazem TAB* 60 MG PO ONE (17:45)
[2019-07-19] MEDS ORDERED: Magnesium Oxide TAB* 400 MG PO ONE (19:30)
[2019-07-19] MEDS: Metoprolol Tartrate TAB* 25 MG PO SCH (19:58)
--- NOTE | 2019-07-19 20:53 | CONS ---
GASTROENTEROLOGY CONSULT: DATE OF CONSULT: 07/19/19 CONSULTING PHYSICIAN: Dr. Robles Smart, Emergency Room; Dr. Daysi Patrick, [facility]; Dr. Dennys Granado, Oncology. HISTORY: This 73-year-old man was straining at stool today when he saw bright red blood in a larger amount than he will typically see. He has been taking Eliquis for about the last 5 months in addition to low-dose aspirin and attributes the increased bleeding to that. His bowel pattern he insists "is not a pattern." He has a long history of constipation and was followed by Dr. Vargas for many years taking MiraLAX in the morning and he was happy with that. Since his hospitalization last fall for hand- [id number]-[id number]-hkber disease where he had atrial fibrillation, was placed on Eliquis, his bowels have been more difficult to regulate. He finds the MiraLAX is no longer reliable and may kick in at different times. Therefore, he has been doing nothing and has accepted skips of several days. He insists that he will not consider going back on MiraLAX. He found it comfortable to take a dose in the morning, but with any other pattern suggested or brought up as possibilities, he begins gesticulating wildly with his arm, raising his voice and indicates "I am just not going to do that." He states repeatedly that he wants a pill like a stool softener that he can take in the morning and that will work reliably and then he would not have to think about it. As regards perspective of options for as-needed medications, he insists that he will not pay attention to trends over several days and he cannot remember and cannot be bothered with this. His significant other Jacqui was with him. He will not consider milk of magnesia as he took it as a child. He brings up again that he wants a stool softener. In the emergency room here, he received a soap suds enema while lying on his right side. After 40 minutes, he discharged a very large bowel movement. His left hip gives him pain and therefore, he will only lie on his right side. He had pain after prostate exams and therefore will not permit a digital rectal, but will permit perianal inspection. PAST MEDICAL HISTORY: 1. Chronic constipation. 2. Atrial fibrillation - asymptomatic during the January 2019 hospitalization. 3. Chronic anticoagulation - since that episode and no bleeding since. 4. Chronic GERD - on Prevacid for more than 20 years. 5. Status post cholecystectomy. 6. Umbilical hernia repair. 7. Prostate cancer - being managed by Dr. Granado. 8. He had colonoscopies in 1999, 2003 and 2007 without polyps being found other than a hyperplastic lesion in 1999. MEDICATIONS: At home: 1. Metoprolol 25 b.i.d. 2. Diltiazem 60 q.8. 3. Apixaban 5 b.i.d. 4. Aspirin 81. 5. Furosemide 40. 6. Lansoprazole 30 h.s. 7. Magnesium oxide 250. REVIEW OF SYSTEMS: No history of syncope, CO, congestive failure, TB, hemoptysis, hepatitis. He did have pancreatitis before his cholecystectomy. No history of open fracture or joint replacement. Neurologic episode in early and was seen by Dr. Delong in consult. PHYSICAL EXAM: He is a slightly pale, obese, deconditioned older man appearing older than stated age. He becomes animated and exasperated, raising his voice frequently during the discussion and then states the way he will permit things to be or which strategies he will consider. HEENT exam shows no icterus. He has no adenopathy. His lungs are clear. Heart sounds are regular. His abdomen is obese with an umbilical hernia repair evident. There is no tenderness. Bowel sounds are normal. Lying on his right side, perianal inspection is unremarkable with no overt bleeding. His partner states he has not had a bowel movement since the effects of the enema some hours ago. The external canal was examined for about 3 cm and was unremarkable. There was no fistula or asymmetry. Extremities show hyperpigmentation from venous stasis in the feet. There was no warmth or cellulitis. LABS: Hemoglobin 13, BUN 13. IMAGING: The patient refused a CT scan. 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 A satisfactory pattern of control with MiraLAX changed after his recent admission where atrial fibrillation was discovered and his medications changed. He currently has had more trouble with constipation. Today when straining, he had some bleeding. While it is not physiologically dangerous at this point (he and his partner understand that), it certainly is disconcerting. Equally disconcerting is the burden of the constipation. He has very fixed ideas as to what he will consider as an acceptable regime. Namely, he wants a pill to be taken in the morning and wants it to work without any observation or as needed parameters. After stating this 3 or 4 times, it was necessary to point out that physiology does not always work that way. He said he would not monitor the situation. His significant other volunteered that she would be willing to possibly do that. He did not respond to that and whether he would accept others ' suggestions is unclear. I did point out that for safety, osmotic laxatives are optimal and advice is likely to come back around to varying doses or schedules of MiraLAX or milk of magnesia. Stool softeners can be tried, but are typically not as reliable. He additionally raised objections to a possibility of increased nocturia with any sort of liquid formulation. It is expected that his significant other may have an influence over the next few days on what he will accept or consider. [id number]/CPS #: [id number] MTDD
[2019-07-19] MEDS ORDERED: Pantoprazole TAB * 40 MG TAB PO SCH (21:00)
--- NOTE | 2019-07-19 21:43 | HP ---
ADMISSION HISTORY AND PHYSICAL: DATE OF ADMISSION: 07/19/19 PRIMARY CARE PHYSICIAN: Dr. Patrick. ADMITTING PHYSICIAN: Dr. Altamirano * (dictated by Jackson Ochoa NP) CHIEF COMPLAINT: Constipation and blood. HISTORY OF PRESENT ILLNESS: Mr. Mcgee is a 73-year-old male with past medical history significant for AFib with RVR, prostate cancer, hypotension, heart failure with preserved ejection fraction, and TIA. He presented to the emergency department today with complaints of BRBPR. He states that he has had a long history of constipation. After his last hospitalization in December 2018, his BMs were more normal and he stopped taking his usual MiraLAX. He states that he was more normal for about a month and then he has since become more and more constipated. He felt exceptionally constipated this morning and was straining to get stool out; however, he noticed some bright red blood on the toilet paper and states that he noticed some drops of blood in the toilet. He denies any lightheadedness, dizziness, chest pain, shortness of breath, abdominal pain, difficulty with urination, unusual numbness or tingling, headaches. He states that he was more concerned about this since he has been on Eliquis since his last hospitalization. He does have a history of prostate cancer with prior reports mentioning metastasis to the colon; however, the patient is unaware of this. He states that he last saw Dr. Granado 2 years ago, which was his last treatment for his cancer, which was diagnosed about 10 years ago per his report. He is unsure what he was treated with last but states that it was a medication. He states that he has never had surgery for this issue, but that he was given radiation and is unaware if he had chemotherapeutic drugs. While in the emergency department, it is noted from the ED provider note that dark blood was noted on rectal exam. No active bleeding, pain on KIM. Stool occult test was positive. The patient received IV fluids, Zofran x1 dose, morphine x1 dose, Lopressor x1 dose, and Dilaudid x1 dose. A CT of the abdomen and pelvis was ordered, but the results were noted per the ED provider report that the patient refused this imaging study. Per Dr. Bartlett, GI has been contacted and plan is for Dr. Horta to consult on this patient later today. Hospital Medicine was asked to evaluate the patient for admission in relation to the potential bleed in the patient being on Eliquis and in relation to his history. PAST MEDICAL HISTORY: 1. AFib with RVR. 2. Prostate cancer with possible metastasis to colon. 3. Hyperlipidemia. 4. Hypertension. 5. GERD. 6. Jaundice. 7. History of hepatitis. 8. Heart failure with preserved ejection fraction. 9. Hiatal hernia. 10. TIA 15 years ago. PAST SURGICAL HISTORY: 1. Cholecystectomy. 2. Bilateral cataract surgery. 3. Incisional hernia repair. HOME MEDICATIONS: 1. Metoprolol tartrate 25 mg p.o. b.i.d. 2. Prevacid 30 mg p.o. at bedtime. 3. Furosemide 40 mg p.o. daily. 4. Aspirin 81 mg p.o. daily. 5. Magnesium oxide 250 mg p.o. t.i.d. 6. Diltiazem 60 mg p.o. q.8 hours. 7. Eliquis 5 mg p.o. b.i.d. 8. Multivitamin 1 gummy p.o. daily. 9. Vitamin D 2000 IU one gummy p.o. daily. ALLERGIES: Grapes. FAMILY HISTORY: Father at age 72 due to heart failure. Mother at age 81 of unknown cause, but had a history of arthritis. Daughter living but had congenital heart defect, which has since resolved. SOCIAL HISTORY: The patient states that he is undecided on a surrogate decision maker. Requests to continue as full code status. Denies any current or prior tobacco use. Denies alcohol or illicit drug use. He states that he lives with his girlfriend for whom he has been with for the last 20 plus years. He states that any information can be obtained or exchanged with her and her name is Jacqui. REVIEW OF SYSTEMS: A 10-point review of systems was completed with this patient. Please see HPI for all pertinent positives and negatives. PHYSICAL EXAMINATION CONSTITUTIONAL: The patient found to be lying in bed, appeared to be in no acute distress. VITAL SIGNS: Temp 98.4, heart rate 86, respiratory rate 19, O2 sat 94%, BP 156/ 72. HEENT: PERRL. No scleral icterus. RESPIRATORY: Lung sounds clear throughout bilaterally. Normal respiratory effort. CARDIOVASCULAR: Heart rate regular. S1, S2 present. No murmurs, rubs, or gallops noted. No JVD. GI: Hypoactive bowel sounds throughout abdomen large slightly distended but soft, ventral hernia noted during flexion of abdominal muscle but resolves quickly with relaxation. EXTREMITIES: 2+ pitting edema throughout left lower extremity and foot. Pedal pulse present 2+. 1+ pitting edema to right lower extremity and 2+ pitting edema to right foot. Pedal pulse present 2+. Darkened and discolored skin to the lateral lower extremities. Skin appears to be intact, slightly dry and spots. MUSCULOSKELETAL: Strength and range of motion appeared to be within normal limits to bilateral upper extremities and right lower extremity. The patient declines to test range of motion, strength to the left lower extremity. NEURO: Alert and oriented x3. Very difficult to keep on track with conversation. Slow to respond. Does have some difficulty with word finding at times but is aware of this. Cranial nerves II through XII are grossly intact. SKIN: Mild erythematous rash noted to left inner and lateral wrist. Some spots noted on right wrist and similar looking rash noted to right lower abdomen and right side abdominal fold. Rash appears to be blotchy, nonraised. No drainage. DIAGNOSTIC STUDIES AND LAB DATA: EKG showed sinus rhythm with a rate of 77. No ischemic changes noted. Labs: WBC 10.9, RBC 4.5, hemoglobin 13.6, hematocrit 40, MCV 88, MCH 30, MCHC 34, RDW 14, platelet count 323. Absolute neutrophils 9.6, absolute lymphocytes 0.7. INR 1.42. APTT 37.5. Sodium 138, potassium 3.3, chloride 104, carbon dioxide 24, anion gap 10, BUN 13, creatinine 1.00. Calcium 9.4. Total bilirubin 0.5, AST 19, ALT 13, alkaline phosphatase 96. ASSESSMENT AND PLAN: Mr. Mcgee is a 73-year-old male with past medical history significant for atrial fibrillation with rapid ventricular response, prostate cancer, hyperlipidemia, hypertension, gastroesophageal reflux disease, heart failure with preserved ejection fraction, and transient ischemic attack. He presented to the emergency department today after an episode of constipation and bright red blood per rectum. He is on anticoagulation with Eliquis regularly. [facility] Medicine was asked to evaluate the patient for admission. 1. Possible GI bleed. The patient reports BRBPR this morning. Positive stool occult blood. H and H 13.6 and 40. GI consult. Hold Eliquis. Hold ASA. 2. Anemia. H and H 13.6 and 40. Values show improvement from all prior values since 2011. Asymptomatic. GI consult. We will await recommendations from provider. Follow up as outpatient. 3. History of AFib. Continue diltiazem. Continue metoprolol. 4. Hypokalemia. Potassium 3.3. KCl 40 mEq p.o. x1 ordered. 5. History of prostate cancer. He states last treatment was [address] Granado unsure of specific treatment but states it was a medication, reviewing records to get more history. Questionable metastasis to colon per prior H and P but the patient is unaware of this. 6. History of heart failure with preserved ejection fraction. Continue metoprolol and Lasix. 7. History of hepatitis. Again, the patient is unsure of type, believes it was A; however, per prior records states type C. Again, attempting to review prior records for more insight. He did have prior hepatitis C RNA Quantitative test, which came back undetected for current infection. 8. FEN: Clear liquid diet until further recommendations from GI. 9. Code status: Full code. 10. DVT prophylaxis: SCDs. TIME SPENT: Approximately 75 minutes was spent on this admission with over half of that being [id number] with the patient for interview, exam, and reviewing plan of care. Consults: GI has been consulted per ED provider. This case has been reviewed by my attending physician, Dr. Altamirano, and she agrees with this plan. JACKSON OCHOA, ULISES [id number]/CPS #: [id number] TRICE
[2019-07-20] MEDS: Diltiazem TAB* 60 MG PO SCH ×2 (00:28→09:09)
[2019-07-20 05:44] LABS: ABS Eosinophils 0.1 10^3/ul (0-0.6); ABS Lymphocytes 0.9 10^3/ul (1.0-4.8); ABS Monocytes 0.9 10^3/ul (0-0.8); Eosinophil % 0.7 %; Hematocrit 35 % (42-52); Hemoglobin 12.1 g/dL (14.0-18.0); Lymphocyte % 11.7 %; Mean Corpuscular HGB Conc 35 g/dL (31-36); Mean Corpuscular Hemoglobin 31 pg (27-31); Mean Corpuscular Volume 89 fL (80-94); Mean Platelet Volume 8.3 fL (7.4-10.4); Platelet Count 274 10^3/uL (150-450); Red Blood Count 3.88 10^6 /uL (4.18-5.48); Red Cell Distribution Width 14 % (10-15); White Blood Count 7.9 10^3/uL (3.5-10.8)
[2019-07-20 06:02] LABS: BUN/Creatinine Ratio 14.9 (8-20); Calcium 8.5 mg/dL (8.6-10.3); EGFR African American 94.7 (>60); EGFR Non-African American 78.2 (>60); Potassium 3.4 mmol/L (3.5-5.0)
[2019-07-20 08:53] VITALS: BP 165/79
[2019-07-20] MEDS ORDERED: Furosemide TAB* 40 MG PO SCH (09:00)
[2019-07-20] MEDS ORDERED: Aspirin EC TAB* 81 MG TAB.EC PO SCH (09:00)
[2019-07-20] MEDS ORDERED: Magnesium Oxide TAB* 400 MG PO SCH (09:00)
[2019-07-20] MEDS: Metoprolol Tartrate TAB* 25 MG PO SCH (09:09)
--- NOTE | 2019-07-20 11:55 | DS ---
CC: Dr. Daysi Patrick; Dr. Dieter Horta * DISCHARGE SUMMARY: DATE OF ADMISSION: 07/19/19 DATE OF DISCHARGE: 07/20/19 PRIMARY CARE PROVIDER: Dr. Daysi Patrick. ACTIVITY COORDINATOR: Dr. Dieter Horta. ATTENDING PHYSICIAN: Dr. Petra Figueroa * (dictated by JILLIAN Hirsch) PRIMARY DISCHARGE DIAGNOSES: 1. Possible gastrointestinal bleed likely related to hemorrhoids with stable H and H. 2. Constipation. SECONDARY DIAGNOSES: 1. Atrial fibrillation. 2. Hypertension. 3. Hyperlipidemia. 4. Heart failure with preserved ejection fraction. 5. History of prostate cancer with bone metastasis, followed by Dr. Granado. 6. Gastroesophageal reflux disease. 7. History of hepatitis. 8. Hiatal hernia. 9. History of transient ischemic attack. DISCHARGE MEDICATIONS: Home medications: 1. Apixaban 5 mg p.o. b.i.d. 2. Aspirin 81 mg p.o. daily. 3. Diltiazem 60 mg p.o. q.8 hours. 4. Furosemide 40 mg p.o. daily. 5. Lansoprazole 30 mg p.o. at bedtime. 6. Magnesium oxide 250 mg p.o. daily. 7. Metoprolol tartrate 25 mg p.o. b.i.d. CONSULTATIONS WHILE IN THE HOSPITAL: Gastroenterology. Impression: A 73-year- old with long history of constipation, satisfactory pattern of control with MiraLAX, changed after recent admission where AF was discovered and medications changed. Currently has more trouble with constipation. Today when straining, he had some bleeding, not physiologically dangerous at this point. It is equally disconcerting his burden of constipation. Has very fixed ideas as to what he will consider as an acceptable regimen, namely wants a pill taken in the morning, wants it to work without any observation or needed parameters. He said he would not monitor the situation. Significant other volunteered, she would be willing to possibly do that, if did not respond to that and whether he would except other suggestions is unclear. I did point out that for safety, osmotic laxatives are optimal and advice is likely to come back around 2 varying doses of schedules of MiraLAX or milk of mag, stool softeners can be tried but typically are unreliable, raises objection to possibility of increased nocturia with any sort of liquid formulation. It is expected that his significant other may have an influence over the next few days on what he will accept or consider. HISTORY OF PRESENT ILLNESS/HOSPITAL COURSE: Mr. Mcgee is a 73-year-old male with a past medical history of AFib, on anticoagulation; prostate cancer with metastases; hypertension; hyperlipidemia; heart failure with preserved ejection fraction, who presented to the ER on 07/19/19 with complaints of bright red blood per rectum. He has a long history of constipation that typically was controlled with MiraLAX up until his December 2018 hospitalization, when he was diagnosed with atrial fibrillation and his medication regimen changed. Since that time, he has had difficulty with bowel movements and notes that MiraLAX leads to loose unpredictable stools, while not taking MiraLAX is also not an option due to constipation. In the ER, he received an enema and since that time has had regular bowel movements. He reports no blood in his bowel movements. At admission, his H and H was 13.6, it dropped approximately 1.5 points to 12.1 but this is likely due to dilutional factors as he had received a 1 L normal saline bolus. The patient did have a positive stool for blood. His main concern seems to be his inability to control his constipation and when he does, he has diarrheal like stool. He does report intermittent bleeding since he started apixaban for his AFib about 5 months ago and reports that occasionally his constipation leads to blood in his stool, which is likely related to hemorrhoid or injury from the stool leaving the colon. We had a long discussion about the concerns of bright red blood per rectum especially in a patient who has a history of metastatic prostate cancer. He states that he is disinterested in any further colonoscopies or workup for cancer. He states that he has been treated for his cancer and he believes that, if this were 50 years ago, he would have been by now. Again, he refuses colonoscopy. At this time, he is eager for discharge. A GI consult was obtained and recommendations were made for a CT of the abdomen and pelvis, which the patient has declined. He had a mild hypokalemia and he also declined potassium repletion at this time. At this time, he is eager to be discharged and refuses any further workup. Recommendations are made for bowel regimens including Metamucil powder or other forms of bulk-forming fiber such as Metamucil, FiberCon, Citrucel, or Benefiber. He states he does not like Metamucil, therefore he was recommended to try another product. If he is unwilling to tolerate this, I recommended a daily Colace or Senna, although this may be less effective than bulk-forming fiber. He is recommended to continue his Eliquis and monitor his bowel movements for blood as well as monitor his symptoms for signs of anemia such as dizziness, lightheadedness, palpitations, shortness of breath, etc. He should follow up with Dr. Horta in 1 to 2 weeks to discuss how medication changes are working. Mr. Mcgee is stable for discharge. PHYSICAL EXAMINATION: Vital Signs: Temperature 98.0 temporal, heart rate 81, respiratory rate 20, oxygen saturation 98% on room air, blood pressure 165/79. General: Mr. Mcgee is a well-developed, well-nourished, obese, elderly white male, who is sitting up in bed. He appears to be in no acute distress. He is breathing comfortably on room air. He is a very regimented older white male, who relies on a schedule and exact outcomes for each intervention. HEENT: PERRL. EOMI. Nonicteric sclerae. Hearing is grossly intact. Oral mucous membranes are moist. There are no lesions. The pharynx is clear. Cardiovascular: Regular rate and rhythm with S1, S2 present. No murmurs, rubs , clicks, or gallops. There is no JVD. There is trace bilateral lower extremity edema. Pulmonary: Symmetrical chest expansion without use of accessory muscles. Clear to auscultation bilaterally without rhonchi, wheeze, or rales. Abdomen: Bowel sounds in all quadrants. Soft, nontender to palpation. Neuro: The patient is awake, he is alert and oriented x3. DISCHARGE PLAN: Mr. Mcgee will be discharged to home. CONDITION: Fair. DIET: Heart healthy. ACTIVITY: As tolerated. MEDICATIONS: 1. Recommend daily Metamucil to help with irregularity and stool softening; other similar products include FiberCon, Citrucel, Benefiber. 2. If he cannot tolerate Metamucil or the like, consider Colace or Senna daily. 3. Continue Eliquis. EDUCATION: 1. Follow up with primary care provider in 4 to 7 days. 2. Follow up with Dr. Horta, Gastroenterology in 1 to 2 weeks. 3. Return to the ER or nearest hospital if you experience any return or worsening of symptoms, increased blood in stool, dark or tarry stools, dizziness , lightheadedness, loss of consciousness, weakness. Please watch for bloody stools especially since you are resuming Eliquis. Return for chest pain or discomfort, shortness of breath, high fevers, chills, night sweats, or any other worrisome signs or symptoms. This is a summarized report of a complex medical history and hospital stay. For further details, please see the entire medical record. TIME SPENT: Approximately 35 minutes was spent on this discharge, greater than half that time was spent [id number] with the patient discussing discharge plans and instructions. JILLIAN NULL [id number]/[facility] #: [id number] TRICE
== END 2019-07-20 10:45 | disposition home or self-care (01) ==
LOC: ED 09:13 → MED 16:54
PROVIDERS: ADMIT Internal Medicine; ATTEND Internal Medicine
DX: K62.5 Hemorrhage of anus and rectum (principal); K59.00 Constipation, unspecified; I48.91 Unspecified atrial fibrillation; E78.5 Hyperlipidemia, unspecified; I11.0 Hypertensive heart disease with heart failure; I50.30 Unspecified diastolic (congestive) heart failure; R94.31 Abnormal electrocardiogram [ECG] [EKG]; K21.9 Gastro-esophageal reflux disease without esophagitis; R19.5 Other fecal abnormalities; Z86.19 Personal history of other infectious and parasitic diseases; Z85.46 Personal history of malignant neoplasm of prostate; Z86.73 Personal history of transient ischemic attack (TIA), and cerebral infarction without residual deficits; Z87.738 Personal history of other specified (corrected) congenital malformations of digestive system; Z79.82 Long term (current) use of aspirin; Z79.899 Other long term (current) drug therapy; Z79.01 Long term (current) use of anticoagulants
CPT/HCPCS: 36415; 80048; 80053; 82270; 85025; 85610; 85730; 86850; 86900; 86901; 93005; 96361; 96374; 96375; 99285; A9270-GY; G0378; J1170; J2270; J2405

== ENCOUNTER 2019-07-27 13:35 | Emergency (ER) | payer MEDICARE, OTHER ==
--- NOTE | 2019-07-27 14:57 | ED ---
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 Seen here 07/19 for same. He was given an enema after which he passed some stool but still was constipated. Admitted to hospitalist for constipation and GI bleed. Declined CT ABD/PEL then. Discharged home on . Patient has tried taking Miralax since being discharged which has not helped much. He states only a little bit of stool has come out after taking Miralax. He states he is passing brown liquid. No blood in stools. He states he is eating little food. Symptoms aggravated by nothing. Symptoms alleviated by nothing. Medications reviewed. No longer taking Eliquis per patient. Allergies reviewed. - History of Current Complaint Chief Complaint: EDConstipation Time Seen by Provider: 07/27/19 14:46 Stated Complaint: CONSTIPATION PER PT Hx Obtained From: Patient Onset/Duration: Started Weeks Ago - 2, Still Present Timing: Constant Current Severity: None Pain Intensity: 0 Aggravating Factor(s): Nothing Alleviating Factor(s): Nothing - Additional Pertinent History Primary Care Physician: MARIEL - Allergy/Home Medications Allergies/Adverse Reactions: Allergies Allergy/AdvReac Type Severity Reaction Status Date / Time grape Allergy Severe Swelling Verified 07/27/19 13:44 Home Medications: Home Medications Apixaban* [Eliquis*] 5 mg PO BID #60 tab 01/26/19 [Rx Confirmed 07/27/19] Furosemide TAB* [Lasix TAB*] 40 mg PO DAILY #30 tab 01/26/19 [Rx Confirmed 07/26] Metoprolol Tartrate TAB* [Lopressor TAB*] 25 mg PO BID #60 tab 01/26/19 [Rx Confirmed 07/27/19] Aspirin EC TAB* [Ecotrin EC Low Dose 81 MG*] 81 mg PO DAILY 07/19/19 [History Confirmed 07/27/19] Aspirin EC TAB* [Ecotrin EC Low Dose 81 MG*] 81 mg PO DAILY 07/27/19 [History Confirmed 07/27/19] Diltiazem TAB* [Cardizem 60 MG Tab*] 120 mg PO DAILY 07/27/19 [History Confirmed 07/27/19] Ergocalciferol (Vitamin D2) [Vitamin D2] 2,000 unit PO DAILY 07/27/19 [History Confirmed 07/27/19] Fenofibrate(NF) [Tricor(NF)] 48 mg PO DAILY 07/27/19 [History Confirmed 07/27/19 ] Lansoprazole CAP (NF) [Prevacid CAP (NF)] 30 mg PO DAILY 07/27/19 [History Confirmed 07/27/19] Lansoprazole [Prevacid] 15 mg PO BEDTIME 07/27/19 [History Confirmed 07/27/19] Leuprolide Acetate (NF) [Lupron Depot (NF)] 4 mg IM Q3M 07/27/19 [History Confirmed 07/27/19] Magnesium Oxide TAB* [MagOx 400 TAB*] 400 mg PO BID 07/27/19 [History Confirmed 07/27/19] Magnesium Oxide [Magnesium Oxide 400] 240 mg PO TID 07/27/19 [History Confirmed 07/27/19] Multivitamins/Minerals TAB* [Theragran/minerals TAB*] 1 tab PO DAILY 07/27/19 [ History Confirmed 07/27/19] Nystatin CREAM* 1 applic TOPICAL BID 07/27/19 [History Confirmed 07/27/19] Polyethylene Glycol 3350* [Miralax (17 GM DOSE OSCAR)] 17 gm PO DAILY 07/27/19 [ History Confirmed 07/27/19] Sennosides [Senna] 8.6 mg PO BID PRN 07/27/19 [History Confirmed 07/27/19] PMH/Surg Hx/FS Hx/Imm Hx Endocrine/Hematology History: Denies: Hx Diabetes, Hx Systemic Lupus Erythematosus Cardiovascular History: Reports: Hx Hypercholesterolemia, Hx Hypotension, Hx Hypertension Denies: Hx Congestive Heart Failure, Hx Pacemaker/ICD Respiratory History: Reports: Hx Pneumonia, Other Respiratory Problems/ Disorders - pneumonia, collapsed lung as a child GI History: Reports: Hx Gastroesophageal Reflux Disease - on prevacid, Hx Gastrointestinal Bleed - BRBPR 07/19/2019, Hx Hiatal Hernia, Hx Jaundice - from hepatitis at approx 16 years old, Other GI Disorders - CHRONIC CONSTIPATION History: Reports: Other Problems/Disorders - 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 Denies: Hx Dialysis, Hx Renal Disease Musculoskeletal History: Reports: Hx Arthritis, Other Musculoskeletal History - CANCER LEFT HIP; METS FROM PROSTATE Denies: Hx Rheumatoid Arthritis Sensory History: Reports: Hx Contacts or Glasses - GLASSES Denies: Hx Hearing Aid Opthamlomology History: Reports: Hx Contacts or Glasses - GLASSES Neurological History: Reports: Hx Transient Ischemic Attacks (TIA) Psychiatric History: Reports: Hx Anxiety Denies: Hx Panic Disorder - Cancer History Cancer Type, Location and Year: malignant neoplasm of the prostste Hx Chemotherapy: Yes Hx Radiation Therapy: Yes - Surgical History Surgery Procedure, Year, and Place: CHOLECYSTECTOMY 2009 [facility] [place]. CATARACT RIGHT EYE 2011 [facility] [place]. cataract left eye 2016 [facility] [place] Hx Anesthesia Reactions: No Infectious Disease History: No Infectious Disease History: Reports: Hx Hepatitis - infectious in high school - none now Denies: Hx of Known/Suspected MRSA, Traveled Outside the [place] in Last 30 Days - Family History Known Family History: Negative: Cardiac Disease, Hypertension, Diabetes - Social History Alcohol Use: None Hx Substance Use: No Substance Use Type: Reports: None Hx Tobacco Use: No Smoking Status (MU): Never Smoked Tobacco Have You Smoked in the Last Year: No Review of Systems Negative: Fever Positive: Other - constipation All Other Systems Reviewed And Are Negative: Yes Physical Exam - Summary Physical Exam Summary: Constitutional: Well-developed, Well-nourished, Alert. (-) Distressed Skin: Warm, Dry HENT: Normocephalic; Atraumatic Eyes: Conjunctiva normal Neck: Musculoskeletal ROM normal neck. (-) JVD, (-) Stridor, (-) Nuchal rigidity Cardio: Rhythm regular, rate normal, Heart sounds normal; Intact distal pulses; Radial pulses are 2+ and symmetric. (-) Murmur Pulmonary/Chest wall: Effort normal. (-) Respiratory distress, (-) Wheezes, (-) Rales Abd: Soft, (-) tenderness, mild abdominal distension, (-) Guarding, (-) Rebound Musculoskeletal: (-) Edema Lymph: (-) Cervical adenopathy Neuro: Alert, Oriented x3 Psych: Mood and affect Normal Triage Information Reviewed: Yes Vital Signs On Initial Exam: Initial Vitals Temp Pulse Resp BP Pulse Ox 97.8 F 79 16 169/81 98 07/27/19 13:40 07/27/19 13:40 07/27/19 13:40 07/27/19 13:40 07/27/19 13:40 Vital Signs Reviewed: Yes Procedures - Sedation Patient Received Moderate/Deep Sedation with Procedure: No Diagnostics - Vital Signs Vital Signs Temp Pulse Resp BP Pulse Ox 07/27/19 13:40 97.8 F 79 16 169/81 98 - Laboratory Lab Statement: Any lab studies that have been ordered have been reviewed, and results considered in the medical decision making process. - CT ABD/PEL CT Interpretation Completed By: Radiologist - IMPRESSION: 1. No CT findings to correlate with patient's symptomatology. No constipation. 2. Left inguinal hernia. No strangulation. ED physician has reviewed this imaging report. Re-Evaluation - Re-Evaluation First Eval Re-Evaluation Time: 19:04 Comment: patient had large bowel movement Second Eval Re-Evaluation Time: 20:06 Comment: patient agrees to d/c GIGU Course/Dx - Course Course Of Treatment: 73 y/o male p/w concern for constipation. Has tried many OTC regimens. D/w patient my concern that since he is not eating much he likely has minimal stool. Patient adamant that he is constipated. No signs of obstruction on history. Abd slightly distended. CT done, does not show large stool burden. Patient had large BM in room. DC to home - Diagnoses Provider Diagnoses: Constipation Discharge ED - Sign-Out/Discharge Documenting (check all that apply): Patient Departure - Discharge Plan Condition: Stable Disposition: HOME Patient Education Materials: Constipation (ED) Referrals: Daysi Patrick MD [Primary Care Provider] - Additional Instructions: You were seen in the emergency department for a shift. Your CT scan did not show any abnormalities. You can take MiraLAX as needed for constipation. Please follow up with your primary care doctor in next 2-3 days and return to emergency department for worsening pain, fevers, or concerning symptoms. It was a pleasure taking care of you today. - Billing Disposition and Condition Condition: STABLE Disposition: Home - Attestation Statements Document Initiated by Scribe: Yes Documenting Scribe: Faiza Hernández Provider For Whom Briseida is Documenting (Include Credential): Robles Smart MD Scribe Attestation: IFaiza, scribed for Robles Smart MD on 07/28/19 at 2045. Scribe Documentation Reviewed: Yes Provider Attestation: The documentation as recorded by the scribeFaiza accurately reflects the service I personally performed and the decisions made by me, Robles Smart MD Status of Scribe Document: Viewed
[2019-07-27] MEDS ORDERED: Iohexol 300* (CONTRAST) 10 ML SDV IV ONE (19:20)
[2019-07-27 20:21] VITALS: BP 166/86
== END 2019-07-27 20:13 | disposition home or self-care (01) ==
LOC: ED 13:35
DX: K59.00 Constipation, unspecified (principal); K40.90 Unilateral inguinal hernia, without obstruction or gangrene, not specified as recurrent; E78.00 Pure hypercholesterolemia, unspecified; I10 Essential (primary) hypertension; K21.9 Gastro-esophageal reflux disease without esophagitis; Z79.82 Long term (current) use of aspirin; Z79.899 Other long term (current) drug therapy; Z86.73 Personal history of transient ischemic attack (TIA), and cerebral infarction without residual deficits; Z90.49 Acquired absence of other specified parts of digestive tract; Z91.018 Allergy to other foods
CPT/HCPCS: 74177; 99283; Q9967

== ENCOUNTER 2024-03-25 13:20 | Inpatient (IN) ==
[2024-03-25 13:58] LABS: ABS Lymphocytes 0.6 10^3/uL (1.0-4.8); ABS Monocytes 0.7 10^3/uL (0.0-1.1); ABS Neutrophils 7.3 10^3/uL (1.5-7.6); Eosinophil % 0.1 %; Hematocrit 39.8 % (38-53); Hemoglobin 13.6 g/dL (13.2-16.3); Lymphocyte % 6.8 %; Mean Corpuscular Hemoglobin 30.3 pg (27-33); Mean Corpuscular Hgb Conc 34.2 g/dL (31-36); Mean Corpuscular Volume 88.8 fL (80-97); Mean Platelet Volume 7.3 fL (7.5-11.2); Platelet Count 463 10^3/uL (150-450); Red Blood Count 4.48 10^6/uL (4.06-5.63); Red Cell Distribution Width 13.9 % (12-17); White Blood Count 8.5 10^3/uL (3.6-10.2)
[2024-03-25 15:22] LABS: Albumin/Globulin Ratio 0.8 (1-3); Calcium 8.6 mg/dL (8.6-10.3); Creatinine, Serum 0.49 mg/dL (0.67-1.17); Globulin 3.7 g/dL (2-4); Magnesium 1.7 mg/dL (1.9-2.7); Potassium 5.2 mmol/L (3.5-5.0); Total Bilirubin 0.7 mg/dL (0.2-1.0); Total Protein 6.7 g/dL (6.4-8.9); eGFR CKD-EPI 103.7 (>60)
[2024-03-25 16:07] LABS: Osmolality Serum 251 mOsm/kg (275-295)
[2024-03-25 17:31] LABS: Urine Osmo 572 mOsm/kg (150-1150)
[2024-03-25] MEDS: Magnesium Sulf 4 GM/100 ML IV 4,000 MG/100 ML BAG IVPB ONE (18:14)
[2024-03-25] MEDS: Iohexol 350 (CONTRAST) 500 ML MDV IV ONE (18:41)
[2024-03-25 20:09] LABS: Urine Appearance Extra Turbid; Urine Color Light-Brown
[2024-03-25 20:13] LABS: Urine Red Blood Cell 1+(3-5/hpf) /HPF (0-Trace); Urine White Blood Cell 3+(>20/hpf) (Absent)
[2024-03-25 20:18] LABS: Urine Bacteria 3+ /HPF (Absent)
[2024-03-25 22:50] LABS: Calcium 8.4 mg/dL (8.6-10.3); Creatinine, Serum 0.43 mg/dL (0.67-1.17); Potassium 5.1 mmol/L (3.5-5.0); eGFR CKD-EPI 107.9 (>60)
[2024-03-26 04:14] LABS: ABS Lymphocytes 0.6 10^3/uL (1.0-4.8); ABS Monocytes 0.8 10^3/uL (0.0-1.1); ABS Nucleated RBC 0.01 10^3/ul; Eosinophil % 0.5 %; Hematocrit 35.2 % (38-53); Hemoglobin 12.2 g/dL (13.2-16.3); Lymphocyte % 7.3 %; Mean Corpuscular Hemoglobin 30.7 pg (27-33); Mean Corpuscular Hgb Conc 34.8 g/dL (31-36); Mean Corpuscular Volume 88.4 fL (80-97); Nucleated Red Blood Cells % 0.1 %/100WBC (0.0-0.8); Platelet Count 417 10^3/uL (150-450); Red Blood Count 3.98 10^6/uL (4.06-5.63); Red Cell Distribution Width 13.7 % (12-17); White Blood Count 8.4 10^3/uL (3.6-10.2)
[2024-03-26 04:47] LABS: Albumin 2.7 g/dL (3.2-5.2); Albumin/Globulin Ratio 0.8 (1-3); Calcium 8.1 mg/dL (8.6-10.3); Creatinine, Serum 0.47 mg/dL (0.67-1.17); Globulin 3.2 g/dL (2-4); Potassium 4.9 mmol/L (3.5-5.0); Total Bilirubin 0.6 mg/dL (0.2-1.0); Total Protein 5.9 g/dL (6.4-8.9); eGFR CKD-EPI 105.1 (>60)
[2024-03-26 05:22] LABS: TSH Ultra Thyroid Stim Horm 1.53 mcIU/mL (0.34-5.60)
[2024-03-26] MEDS: Polyethylene Glycol 3350 17 GM PACKET PO SCH (09:00)
[2024-03-26] MEDS: Acetaminophen IV 1 GM/100ML 1,000 MG/100 ML BAG IV PRN (09:00)
[2024-03-26 09:18] LABS: PSA Screen Ultra Sensitive 2.749 ng/mL (0-4.000)
[2024-03-26] MEDS: Morphine 2 MG/ML SYRINGE IV ONE (13:33)
[2024-03-26] MEDS: Morphine 2 MG/ML SYRINGE ONE (13:33)
[2024-03-26 13:56] LABS: Calcium 8.1 mg/dL (8.6-10.3); Creatinine, Serum 0.47 mg/dL (0.67-1.17); Potassium 4.8 mmol/L (3.5-5.0); eGFR CKD-EPI 105.1 (>60)
[2024-03-26] MEDS: Sodium Chloride 3% HYPERTONIC 210 ML IV ONE (17:47)
[2024-03-26] MEDS: Senna TAB 8.6 mg TAB PO PRN (21:20)
[2024-03-27 05:50] LABS: ABS Eosinophils 0.1 10^3/uL (0.0-0.5); ABS Lymphocytes 0.9 10^3/uL (1.0-4.8); ABS Monocytes 0.9 10^3/uL (0.0-1.1); ABS Neutrophils 6.3 10^3/uL (1.5-7.6); Hematocrit 34.5 % (38-53); Hemoglobin 11.8 g/dL (13.2-16.3); Lymphocyte % 10.8 %; Mean Corpuscular Hemoglobin 30.4 pg (27-33); Mean Corpuscular Hgb Conc 34.2 g/dL (31-36); Mean Corpuscular Volume 88.9 fL (80-97); Platelet Count 384 10^3/uL (150-450); Red Blood Count 3.89 10^6/uL (4.06-5.63); Red Cell Distribution Width 13.8 % (12-17); White Blood Count 8.1 10^3/uL (3.6-10.2)
[2024-03-27 06:41] LABS: Creatinine, Serum 0.47 mg/dL (0.67-1.17); Magnesium 1.8 mg/dL (1.9-2.7); Potassium 4.9 mmol/L (3.5-5.0); eGFR CKD-EPI 105.1 (>60)
[2024-03-27] MEDS: Magnesium Sulfate 2 gm BAG 2 GM/50 ML BAG IVPB ONE (08:01)
[2024-03-27] MEDS ORDERED: Morphine 2 MG/ML SYRINGE IV PRN (20:42)
[2024-03-27] MEDS: Morphine 2 MG/ML SYRINGE IV ONE (20:52)
[2024-03-27 22:37] LABS: Body Fluid Appearance Bloody; Body Fluid Color Red; Body Fluid Source Pleural Fluid
[2024-03-27 23:41] LABS: Body Fluid Total Nucleated 883 /mcL
[2024-03-27 23:49] LABS: Body Fluid Mono 8 %; Body Fluid Other Cells 1; Body Fluid Total Cells Counted 200
[2024-03-28 04:33] LABS: ABS Lymphocytes 0.7 10^3/uL (1.0-4.8); ABS Monocytes 0.8 10^3/uL (0.0-1.1); ABS Neutrophils 8.3 10^3/uL (1.5-7.6); Eosinophil % 0.3 %; Hematocrit 35.3 % (38-53); Hemoglobin 12.2 g/dL (13.2-16.3); Mean Corpuscular Hemoglobin 30.5 pg (27-33); Mean Corpuscular Hgb Conc 34.5 g/dL (31-36); Mean Corpuscular Volume 88.3 fL (80-97); Platelet Count 369 10^3/uL (150-450); Red Blood Count 3.99 10^6/uL (4.06-5.63); Red Cell Distribution Width 14.1 % (12-17); White Blood Count 9.8 10^3/uL (3.6-10.2)
[2024-03-28 05:25] LABS: Calcium 8.1 mg/dL (8.6-10.3); Creatinine, Serum 0.52 mg/dL (0.67-1.17); Magnesium 1.8 mg/dL (1.9-2.7); Potassium 5.1 mmol/L (3.5-5.0); eGFR CKD-EPI 101.9 (>60)
[2024-03-28] MEDS ORDERED: Zosyn per Pharmacy NOTE FOLLOW UP SCH (08:00)
[2024-03-28] MEDS: Piperacillin/Tazobac 3.375 BAG 3.375 GM/100 ML BAG IV ONE (08:58)
[2024-03-28] MEDS: Magnesium Sulfate 2 gm BAG 2 GM/50 ML BAG IVPB ONE (10:00)
[2024-03-28] MEDS: ZOSYN 3.375 GM Q8H per EXTENDED INFUSION IV SCH (13:34)
[2024-03-28 14:49] LABS: Total Protein 5.6 g/dL (6.4-8.9)
[2024-03-28 20:40] LABS: Calcium 8.7 mg/dL (8.6-10.3); Creatinine, Serum 0.64 mg/dL (0.67-1.17); Potassium 5.1 mmol/L (3.5-5.0); eGFR CKD-EPI 95.7 (>60)
[2024-03-29 07:01] LABS: ABS Lymphocytes 0.7 10^3/uL (1.0-4.8); ABS Neutrophils 6.7 10^3/uL (1.5-7.6); Eosinophil % 0.3 %; Hematocrit 37.5 % (38-53); Hemoglobin 12.9 g/dL (13.2-16.3); Lymphocyte % 8.1 %; Mean Corpuscular Hemoglobin 30.9 pg (27-33); Mean Corpuscular Hgb Conc 34.5 g/dL (31-36); Mean Corpuscular Volume 89.6 fL (80-97); Mean Platelet Volume 7.5 fL (7.5-11.2); Platelet Count 404 10^3/uL (150-450); Red Blood Count 4.19 10^6/uL (4.06-5.63); Red Cell Distribution Width 14.1 % (12-17); White Blood Count 8.5 10^3/uL (3.6-10.2)
[2024-03-29 08:01] LABS: Calcium 8.1 mg/dL (8.6-10.3); Creatinine, Serum 0.57 mg/dL (0.67-1.17); Magnesium 2.1 mg/dL (1.9-2.7); eGFR CKD-EPI 99.1 (>60)
[2024-03-29] MEDS: CMCS: Bicalutamide 50 mg TAB (NF) PO SCH (09:33)
[2024-03-29 15:39] LABS: Calcium 8.4 mg/dL (8.6-10.3); Creatinine, Serum 0.71 mg/dL (0.67-1.17); Potassium 5.1 mmol/L (3.5-5.0); eGFR CKD-EPI 92.7 (>60)
[2024-03-29] MEDS ORDERED: Zosyn per Pharmacy NOTE FOLLOW UP SCH (18:00)
[2024-03-29] MEDS: SODIUM ZIRCONIUM CYCLOSILICATE 5 GM PACKET PO ONE (20:48)
[2024-03-30 04:32] LABS: Calcium 8.1 mg/dL (8.6-10.3); Creatinine, Serum 0.52 mg/dL (0.67-1.17); Potassium 4.2 mmol/L (3.5-5.0); eGFR CKD-EPI 101.9 (>60)
[2024-03-31 07:55] LABS: Calcium 8.5 mg/dL (8.6-10.3); Creatinine, Serum 0.45 mg/dL (0.67-1.17); Potassium 4.5 mmol/L (3.5-5.0); eGFR CKD-EPI 106.4 (>60)
[2024-03-31 09:45] LABS: Lactate Dehydrogenase, BF 81 U/L
[2024-03-31 09:46] LABS: Fluid Type, Protein, Total PLEURAL FLUID; Total Protein, BF 3.5 g/dL
[2024-03-31] MEDS ORDERED: Zosyn per Pharmacy NOTE FOLLOW UP SCH (17:00)
[2024-03-31] MEDS: Piperacillin/Tazobac 3.375 BAG 3.375 GM/100 ML BAG IV ONE (17:25)
[2024-03-31] MEDS: ZOSYN 3.375 GM Q8H per EXTENDED INFUSION IV SCH (21:44)
[2024-04-01 09:26] LABS: ABS Eosinophils 0.1 10^3/uL (0.0-0.5); ABS Lymphocytes 0.7 10^3/uL (1.0-4.8); ABS Monocytes 0.8 10^3/uL (0.0-1.1); ABS Neutrophils 5.1 10^3/uL (1.5-7.6); ABS Nucleated RBC 0.01 10^3/ul; Eosinophil % 0.9 %; Hematocrit 33.6 % (38-53); Hemoglobin 11.5 g/dL (13.2-16.3); Lymphocyte % 10.4 %; Mean Corpuscular Hemoglobin 30.6 pg (27-33); Mean Corpuscular Hgb Conc 34.2 g/dL (31-36); Mean Corpuscular Volume 89.4 fL (80-97); Mean Platelet Volume 6.9 fL (7.5-11.2); Nucleated Red Blood Cells % 0.1 %/100WBC (0.0-0.8); Platelet Count 344 10^3/uL (150-450); Red Blood Count 3.76 10^6/uL (4.06-5.63); Red Cell Distribution Width 13.9 % (12-17); White Blood Count 6.6 10^3/uL (3.6-10.2)
[2024-04-01 09:37] LABS: Calcium 8.5 mg/dL (8.6-10.3); Creatinine, Serum 0.47 mg/dL (0.67-1.17); Potassium 4.3 mmol/L (3.5-5.0); eGFR CKD-EPI 105.1 (>60)
[2024-04-01 09:49] VITALS: BP 108/60
== END 2024-04-01 12:55 | DRG 644 ==
LOC: ED 13:20 → EDHOLD 13:20 → ICU 16:53 → SUATTDRO 03-26 11:15 → MEDTELE 03-28 15:21
PROVIDERS: ADMIT Internal Medicine; ATTEND Internal Medicine